=== PATIENT | female | born 1945 | race Caucasian/White ===

== ENCOUNTER 2025-04-18 15:13 | Emergency (ER) | payer MEDICARE, SELFPAY ==
[2025-04-18] VITALS (27 sets, daily range): BP systolic 120–174; BP diastolic 45–77; PULSE 42–87; RESP 11–23; TEMP 36.6; O2SAT 95–99
--- NOTE | ~2025-04-18 | XR_ITS ---
EXAMINATION: XR chest 2V Exam Date/Time: 04/18/2025 18:10 CDT HISTORY: chest heaviness, dizziness Comparison: None. RESULT: Lines, tubes, and devices: Coronary stenting. Lungs and pleura: Clear. Cardiomediastinal silhouette: Unremarkable. Other: No acute osseous or upper abdominal finding. Exaggerated thoracic kyphosis with mild multilev el anterior wedge deformities at the thoracolumbar junction. Old proximal right humeral fracture, hea led in mild deformity. IMPRESSION: No acute cardiopulmonary process. Mild multilevel anterior wedge deformities at the thoracolumbar junction, likely chronic, unless acco mpanied by history of trauma and/or pain/tenderness. Old right proximal humeral fracture. Reviewed, dictated and finalized at location K. IMPRESSION: No acute cardiopulmonary process. Mild multilevel anterior wedge deformities at the thoracolumbar junction, likel y chronic, unless accompanied by history of trauma and/or pain/tenderness. Old right proximal humeral fracture.
--- NOTE | ~2025-04-18 | CT_ITS ---
EXAMINATION: CT brain wo con DATE: 04/18/2025 17:58 INDICATION: dizziness . TECHNIQUE: Computed tomography (CT) of the head was performed without intravenous contrast. The mA wa s adjusted according to patient size. Iterative reconstruction technique was employed. The dose-lengt h product was 605.33 mGy-cm. COMPARISON: None. FINDINGS: No acute intracranial hemorrhage or extra-axial fluid collection. No hydrocephalus, mass, or herniation. No acute ischemic infarct. Unremarkable dural venous sinus attenuation. No acute osseous abnormality. Trace right mastoid fluid, the remaining aerated spaces are clear. Mild atrophy and chronic white matter change. Atherosclerotic intracranial calcification. Bilateral l ens replacements. IMPRESSION: No acute intracranial process. Reviewed, dictated and finalized at location K.
--- NOTE | 2025-04-18 15:17 | ECG_ITS ---
Test Date: 2025-04-18 15:24:03 Measurements Intervals [place] Rate: 44 P: 1 AL: 225 QRS: -25 QRSD: 85 T: 34 QT: 454 QTc: 392 Interpretive Statements SINUS BRADYCARDIA WITH FIRST DEGREE AV BLOCK POSSIBLE LEFT ATRIAL ENLARGEMENT INFERIOR INFARCT, AGE INDETERMINATE BORDERLINE T WAVE ABNORMALITY- ANTEROLATERAL LEADS BASELINE ARTIFACT- I, II, III, AVR, AVL, AVF ABNORMAL ECG No previous ECG available for comparison Electronically Signed On 04-18-2025 15:32:04 CDT by Margarito Shepherd D.O.
--- OUTSIDE RECORDS SUMMARY | 2025-04-18 15:17 | XMS_ITS | Encounter Summary ---
Author Organization [facility] Address 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
--- OUTSIDE RECORDS SUMMARY | 2025-04-18 15:17 | XMS_ITS | Encounter Summary ---
Author Organization [facility] Address 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
--- OUTSIDE RECORDS SUMMARY | 2025-04-18 15:18 | XMS_ITS | Clinical Summary ---
Author Organization [facility] Address [facility] [place] [address] Care Team Providers Care Barrel Waterer Name Role Phone Unavailable Primary Care Provider Unavailabl e Allergies Active Allergy Reactions Criticality Noted Date Comments Cephalexin Rash Low 09/19/2017 Lisinopril Cough 09/19/2017 Sulfa Antibiotics Hives 09/19/2017 Hydrocodone-Acetaminophen Headache 09/19/2017 Medications levothyroxine 112 MCG tablet Take 112 mcg by mouth daily. Active folic acid 1 MG tablet Take 1 mg by mouth daily. Active triamterene-hyd rochlorothiazid e 37.5-25 MG capsule Take 1 capsule by mouth daily. Active losartan 25 MG tablet Take 25 mg by mouth daily. Active metoprolol tartrate 25 MG tablet Take by mouth 2 (two) times daily. Active rosuvastatin 5 MG tablet Take 5 mg by mouth daily. Active Active Problems No known active problems Family History Medical History Relation Comments Cancer Father Cancer Mother Diabetes Sister Relation Status Comments Father Mother Sister Social History Tobacco Use Types Packs/Day Years Used Date Smoking Tobacco: Never Smokeless Tobacco: Never Comments No Sex and Gender Information Value Date Recorded Sex Assigned at Not on file Legal Sex Female 5:08 PM CDT Gender Identity Not on file Sexual Orientation Not on file Last Filed Vital Signs Vital Sign Reading Time Taken Comments Blood Pressure 124/70 09/19/2017 1:23 PM PETROLOGY TEACHER Pulse 66 09/19/2017 1:23 PM PETROLOGY TEACHER Temperature 36.7 C (98 F) 09/19/2017 1:23 PM PETROLOGY TEACHER Respiratory Rate 20 09/19/2017 1:23 PM PETROLOGY TEACHER Oxygen Saturation 99% 09/19/2017 1:23 PM PETROLOGY TEACHER Inhaled Oxygen Concentration - - Weight 79.4 kg (175 lb) 09/19/2017 1:23 PM PETROLOGY TEACHER Height 162.6 cm (5' 4) 09/19/2017 1:23 PM PETROLOGY TEACHER Body Mass Index 30.04 09/19/2017 1:23 PM PETROLOGY TEACHER Plan of Treatment Health Maintenance Due Date Last Done Comments DTaP, Tdap and Td Vaccines ( 1 - Tdap) 12/14/1963 Pneumococcal Vaccine: 50+ Ye ars (1 of 1 - PCV) 1994 Zoster Vaccines (1 of 2) 1994 Dexa Scan (General) 2009 RSV Immunization or 60+ Years (1 - 1-dose 75+ series) 12/14/2019 COVID-19 Vaccine (1 - 2023-2 5 season) 2024 Meningococcal B Vaccine Aged Out No l onger eligible based on patient's age to complete this topic Meningococcal Vaccine Aged Out No mary frank eligible based on patient's age to complete this topic RSV Immunizations Under 20 Months Aged Out No longer eligible based on patient's age to complete this topic Insurance
--- OUTSIDE RECORDS SUMMARY | 2025-04-18 15:18 | XMS_ITS | Encounter Summary ---
Author Organization [facility] Address [address] [place] [address] Care Team Providers Care Customer Service Advisor Name Role Phone Radha Joshi MD Primary Care Provider Encounter Details Date Type Department Care Team (Late st Contact Info) Description 08/03/2007 Outpatient Historical [facility] Internal Medicine [facility] and [address] [place] [address] [place] [address] [facility] [address] [place] [address] Social History Tobacco Use Types Packs/Day Years Used Date Smoking Tobacco: Never Assessed Comments No Sex and Gender Information Value Date Recorded Sex Assigned at Not on file 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
--- OUTSIDE RECORDS SUMMARY | 2025-04-18 15:18 | XMS_ITS | Encounter Summary ---
Author Organization [facility] Address [address] [place] [address] Care Team Providers Care Ore Dressing Engineer Name Role Phone Radha Joshi MD Primary Care Provider [phone] Encounter Details Date Type Department Care Team (Late st Contact Info) Description 03/31/2006 Outpatient Historical [facility] Internal Medicine [address] [address] Radha Joshi MD [address] [facility] [address] [place] [address] Social History Tobacco Use Types Packs/Day Years Used Date Smoking Tobacco: Never Assessed Comments Unknown Sex and Gender Information Value Date Recorded Sex Assigned at Not on file Legal Sex Female 3:41 AM JUVENILE CORRECTIONS OFFICER Gender Identity Not on file Sexual Orientation Not on file documented as of this encounter Plan of Treatment Not on file documented as of this encounter Visit Diagnoses Not on filedocumented in this encounter Care Teams Ore Dressing Engineer Relationship Specialty Start Date End Date Radha Joshi MD [address] [facility] [address] [place] [address] PCP - General 08/07/02 06/04/14 documented as of this encounter
--- OUTSIDE RECORDS SUMMARY | 2025-04-18 15:18 | XMS_ITS | Encounter Summary ---
Author Organization [facility] Address [address] [place] [address] Care Team Providers Care House Piping Inspector Name Role Phone Radha Joshi MD Primary Care Provider Encounter Details Date Type Department Care Team (Late st Contact Info) Description 08/15/2007 Outpatient Historical [facility] Internal Medicine [facility] and [address] [place] [address] [place] [address] [facility] [address] [place] [address] Social History Tobacco Use Types Packs/Day Years Used Date Smoking Tobacco: Never Assessed Comments No Sex and Gender Information Value Date Recorded Sex Assigned at Not on file Legal Sex Female 3:41 AM ACCOUNTING RECONCILIATION CLERK Gender Identity Not on file Sexual Orientation Not on file documented as of this encounter Plan of Treatment Not on file documented as of this encounter Visit Diagnoses Not on filedocumented in this encounter Care Teams House Piping Inspector Relationship Specialty Start Date End Date Radha Joshi MD [address] [facility] [address] [place] [address] PCP - General 08/07/02 06/04/14 documented as of this encounter
--- OUTSIDE RECORDS SUMMARY | 2025-04-18 15:18 | XMS_ITS | Encounter Summary ---
Author Organization [facility] Address [address] [place] [address] Care Team Providers Care Supervisor Composing Room Name Role Phone Radha Joshi MD Primary Care Provider Encounter Details Date Type Department Care Team (Late st Contact Info) Description 07/31/2006 Outpatient Historical [facility] Internal Medicine [address] [address] Radha Joshi MD [address] [facility] [address] [place] [address] Social History Tobacco Use Types Packs/Day Years Used Date Smoking Tobacco: Never Assessed Comments Unknown Sex and Gender Information Value Date Recorded Sex Assigned at Not on file Legal Sex Female 3:41 AM ARMED CUSTOM PROTECTION OFFICER Gender Identity Not on file Sexual Orientation Not on file documented as of this encounter Plan of Treatment Not on file documented as of this encounter Visit Diagnoses Not on filedocumented in this encounter Care Teams Supervisor Composing Room Relationship Specialty Start Date End Date Radha Joshi MD [address] [facility] [address] [place] [address] PCP - General 08/07/02 06/04/14 documented as of this encounter
--- OUTSIDE RECORDS SUMMARY | 2025-04-18 15:18 | XMS_ITS | Encounter Summary ---
Author Organization [employer] Address 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
--- OUTSIDE RECORDS SUMMARY | 2025-04-18 15:18 | XMS_ITS | Encounter Summary ---
Author Organization [facility] Address [address] [place] [address] Care Team Providers Care Unhairer Name Role Phone Radha Joshi MD Primary Care Provider Encounter Details Date Type Department Care Team (Late st Contact Info) Description 05/30/2006 Outpatient Historical [facility] Internal Medicine [address] [address] Radha Joshi MD [address] [facility] [address] [place] [address] Social History Tobacco Use Types Packs/Day Years Used Date Smoking Tobacco: Never Assessed Comments Unknown Sex and Gender Information Value Date Recorded Sex Assigned at Not on file Legal Sex Female 3:41 AM PROPERTY CLAIMS ADJUSTER Gender Identity Not on file Sexual Orientation Not on file documented as of this encounter Plan of Treatment Not on file documented as of this encounter Visit Diagnoses Not on filedocumented in this encounter Care Teams Unhairer Relationship Specialty Start Date End Date Radha Joshi MD [address] [facility] [address] [place] [address] PCP - General 08/07/02 06/04/14 documented as of this encounter
--- OUTSIDE RECORDS SUMMARY | 2025-04-18 15:18 | XMS_ITS | Encounter Summary ---
Author Organization [employer] Address [address] [place] [address] Care Team Providers Care Antenna Machine Operator Name Role Phone Radha Joshi MD Primary Care Provider Encounter Details Date Type Department Care Team (Latest Contact Info) Description 08/15/2007 Outpatient [place] [address] [facility] [address] [place] [id number] Cough (Primary Dx) Social History Tobacco Use Types Packs/Day Years Used Date Smoking Tobacco: Never Assessed Comments No Sex and Gender Information Value Date Recorded Sex Assigned at Not on file Legal Sex Female 3:41 AM SEISMIC INTERPRETER Gender Identity Not on file Sexual Orientation Not on file documented as of this encounter Plan of Treatment Not on file documented as of this encounter Visit Diagnoses Diagnosis Cough- Primary documented in this encounter Care Teams Antenna Machine Operator Relationship Specialty Start Date End Date Radha Joshi MD [address] [facility] [address] [address] PCP - General 08/07/02 06/04/14 documented as of this encounter
--- OUTSIDE RECORDS SUMMARY | 2025-04-18 15:18 | XMS_ITS | Encounter Summary ---
Author Organization [facility] Address [address] [place] [address] Care Team Providers Care Stitcher Standard Machine Name Role Phone Radha Joshi MD Primary Care Provider Encounter Details Date Type Department Care Team (Late st Contact Info) Description 08/01/2007 Outpatient Historical [facility] Radha Joshi MD [address] [place] [address] Social History Tobacco Use Types Packs/Day Years Used Date Smoking Tobacco: Never Assessed Comments No Sex and Gender Information Value Date Recorded Sex Assigned at Not on file Legal Sex Female 3:41 AM CORRECTIONAL CASE RECORDS SUPERVISOR Gender Identity Not on file Sexual Orientation Not on file documented as of this encounter Plan of Treatment Not on file documented as of this encounter Visit Diagnoses Not on filedocumented in this encounter Care Teams Stitcher Standard Machine Relationship Specialty Start Date End Date Radha Joshi MD [address] [place] [address] PCP - General 08/07/02 06/04/14 documented as of this encounter
--- OUTSIDE RECORDS SUMMARY | 2025-04-18 15:18 | XMS_ITS | Encounter Summary ---
Author Organization [facility] Address 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
--- OUTSIDE RECORDS SUMMARY | 2025-04-18 15:18 | XMS_ITS | Encounter Summary ---
Author Organization [facility] Address [address] [place] [address] Care Team Providers Care Manager Knowledge Name Role Phone Radha Joshi MD Primary Care Provider Encounter Details Date Type Department Care Team (Late st Contact Info) Description 11/23/2006 Outpatient Historical [facility] Internal Medicine [address] [address] Radha Joshi MD [address] 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 [address] [place] [address] PCP - General 08/07/02 06/04/14 documented as of this encounter
--- OUTSIDE RECORDS SUMMARY | 2025-04-18 15:18 | XMS_ITS | Encounter Summary ---
Author Organization [facility] Address 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
--- OUTSIDE RECORDS SUMMARY | 2025-04-18 15:18 | XMS_ITS | Encounter Summary ---
Author Organization [facility] Address [address] [place] [address] Care Team Providers Care Sales Solutions Representative Name Role Phone Radha Joshi MD Primary Care Provider Encounter Details Date Type Department Care Team (Late st Contact Info) Description 03/02/2006 Outpatient Historical [facility] Internal Medicine [address] [address] Radha Joshi MD [address] [facility] [address] [place] [address] Social History Tobacco Use Types Packs/Day Years Used Date Smoking Tobacco: Never Assessed Comments Unknown Sex and Gender Information Value Date Recorded Sex Assigned at Not on file Legal Sex Female 3:41 AM CASINO OPERATIONS SUPERVISOR Gender Identity Not on file Sexual Orientation Not on file documented as of this encounter Plan of Treatment Not on file documented as of this encounter Visit Diagnoses Not on filedocumented in this encounter Care Teams Sales Solutions Representative Relationship Specialty Start Date End Date Radha Joshi MD [address] [facility] [address] [place] [address] PCP - General 08/07/02 06/04/14 documented as of this encounter
--- OUTSIDE RECORDS SUMMARY | 2025-04-18 15:19 | XMS_ITS | Encounter Summary ---
Author Organization [facility] Address [address] [place] [address] Care Team Providers Care Head Host/Hostess Name Role Phone Radha Joshi MD Primary Care Provider [phone] Encounter Details Date Type Department Care Team (Late st Contact Info) Description 07/01/1998 Outpatient Historical [address] [place] [address] Marci Cao MD NO ADDRESS ON FILE Social History Tobacco Use Types Packs/Day Years Used Date Smoking Tobacco: Never Assessed Comments Unknown Sex and Gender Information Value Date Recorded Sex Assigned at Not on file Legal Sex Female 3:41 AM RESERVATION AGENT Gender Identity Not on file Sexual Orientation Not on file documented as of this encounter Plan of Treatment Not on file documented as of this encounter Visit Diagnoses Not on filedocumented in this encounter Care Teams Head Host/Hostess Relationship Specialty Start Date End Date Radha Joshi MD [address] [facility] [address] [place] [address] PCP - General 08/07/02 06/04/14 documented as of this encounter
--- OUTSIDE RECORDS SUMMARY | 2025-04-18 15:19 | XMS_ITS | Encounter Summary ---
Author Organization [facility] Address [address] [place] [address] Care Team Providers Care Care Coordinator Name Role Phone Radha Joshi MD Primary Care Provider [phone] Encounter Details Date Type Department Care Team (Late st Contact Info) Description 08/24/2005 Outpatient Historical [address] [place] [address] Marci Cao MD NO ADDRESS ON FILE Social History Tobacco Use Types Packs/Day Years Used Date Smoking Tobacco: Never Assessed Comments Unknown Sex and Gender Information Value Date Recorded Sex Assigned at Not on file Legal Sex Female 3:41 AM POSTAL TRANSPORTATION CLERK Gender Identity Not on file Sexual Orientation Not on file documented as of this encounter Plan of Treatment Not on file documented as of this encounter Visit Diagnoses Not on filedocumented in this encounter Care Teams Care Coordinator Relationship Specialty Start Date End Date Radha Joshi MD [address] [facility] [address] [place] [address] PCP - General 08/07/02 06/04/14 documented as of this encounter
--- OUTSIDE RECORDS SUMMARY | 2025-04-18 15:19 | XMS_ITS | Encounter Summary ---
Author Organization [facility] Address 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
--- OUTSIDE RECORDS SUMMARY | 2025-04-18 15:19 | XMS_ITS | Encounter Summary ---
Author Organization [facility] Address [address] [place] [address] Care Team Providers Care Cancer Program Coordinator Name Role Phone Radha Joshi MD Primary Care Provider Encounter Details Date Type Department Care Team (Late st Contact Info) Description 01/01/2007 Outpatient Historical [facility] Internal Medicine [address] [address] Radha Joshi MD [address] [facility] [address] [place] [address] Social History Tobacco Use Types Packs/Day Years Used Date Smoking Tobacco: Never Assessed Comments No Sex and Gender Information Value Date Recorded Sex Assigned at Not on file Legal Sex Female 3:41 AM GRAPHIC ARTIST Gender Identity Not on file Sexual Orientation Not on file documented as of this encounter Plan of Treatment Not on file documented as of this encounter Visit Diagnoses Not on filedocumented in this encounter Care Teams Cancer Program Coordinator Relationship Specialty Start Date End Date Radha Joshi MD [address] [facility] [address] [place] [address] PCP - General 08/07/02 06/04/14 documented as of this encounter
--- OUTSIDE RECORDS SUMMARY | 2025-04-18 15:19 | XMS_ITS | Encounter Summary ---
Author Organization [facility] Address 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
--- OUTSIDE RECORDS SUMMARY | 2025-04-18 15:19 | XMS_ITS | Encounter Summary ---
Author Organization [employer] Address 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
--- OUTSIDE RECORDS SUMMARY | 2025-04-18 15:19 | XMS_ITS | Encounter Summary ---
Author Organization [facility] Address 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
--- OUTSIDE RECORDS SUMMARY | 2025-04-18 15:19 | XMS_ITS | Encounter Summary ---
Author Organization [facility] Address [address] [place] [address] Care Team Providers Care Civil Engineer Land Development Name Role Phone Radha Joshi MD Primary Care Provider Encounter Details Date Type Department Care Team (Late st Contact Info) Description 06/17/2005 Outpatient Historical [facility] Radha Joshi MD [address] [facility] [address] [place] [address] SKIN SENSATION DISTURB (Primary Dx) Social History Tobacco Use Types Packs/Day Years Used Date Smoking Tobacco: Never Assessed Comments Unknown Sex and Gender Information Value Date Recorded Sex Assigned at Not on file Legal Sex Female 3:41 AM GSA COORDINATOR Gender Identity Not on file Sexual Orientation Not on file documented as of this encounter Plan of Treatment Not on file documented as of this encounter Visit Diagnoses Diagnosis Disturbance of skin sensation- Primary documented in this encounter Care Teams Civil Engineer Land Development Relationship Specialty Start Date End Date Radha Joshi MD [address] [facility] [address] [place] [address] PCP - General 08/07/02 06/04/14 documented as of this encounter
--- OUTSIDE RECORDS SUMMARY | 2025-04-18 15:19 | XMS_ITS | Encounter Summary ---
Author Organization [employer] Address 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
--- OUTSIDE RECORDS SUMMARY | 2025-04-18 15:19 | XMS_ITS | Encounter Summary ---
Author Organization [facility] Address [address] [place] [address] Care Team Providers Care Solar Panel Installer Name Role Phone Radha Joshi MD Primary Care Provider Encounter Details Date Type Department Care Team (Late st Contact Info) Description 06/07/2005 Outpatient Historical [facility] Internal Medicine [address] [address] Radha Joshi MD [address] [facility] [address] [place] [address] Social History Tobacco Use Types Packs/Day Years Used Date Smoking Tobacco: Never Assessed Comments Unknown Sex and Gender Information Value Date Recorded Sex Assigned at Not on file Legal Sex Female 3:41 AM STAFF PHYSICAL THERAPY ASSISTANT Gender Identity Not on file Sexual Orientation Not on file documented as of this encounter Plan of Treatment Not on file documented as of this encounter Visit Diagnoses Not on filedocumented in this encounter Care Teams Solar Panel Installer Relationship Specialty Start Date End Date Radha Joshi MD [address] [facility] [address] [place] [address] PCP - General 08/07/02 06/04/14 documented as of this encounter
--- OUTSIDE RECORDS SUMMARY | 2025-04-18 15:19 | XMS_ITS | Encounter Summary ---
Author Organization [facility] Address 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
--- OUTSIDE RECORDS SUMMARY | 2025-04-18 15:19 | XMS_ITS | Encounter Summary ---
Author Organization [facility] Address [address] [place] [address] Care Team Providers Care Currency Examiner Name Role Phone Radha Joshi MD Primary Care Provider Encounter Details Date Type Department Care Team (Late st Contact Info) Description 07/19/2005 Outpatient Historical [facility] 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
--- OUTSIDE RECORDS SUMMARY | 2025-04-18 15:20 | XMS_ITS | Encounter Summary ---
Author Organization [facility] Address [address] [place] [address] Care Team Providers Care Central Melt Specialist Name Role Phone Radha Joshi MD Primary Care Provider Encounter Details Date Type Department Care Team (Late st Contact Info) Description 06/28/2004 Outpatient Historical 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
--- OUTSIDE RECORDS SUMMARY | 2025-04-18 15:20 | XMS_ITS | Encounter Summary ---
Author Organization [facility] Address [address] [place] [address] Care Team Providers Care Diesel Technology Instructor Name Role Phone Radha Joshi MD Primary Care Provider Encounter Details Date Type Department Care Team (Late st Contact Info) Description 06/01/2004 Outpatient Historical [facility] [address] [place] [address] Juan David Wilson MD [facility] [address] [address] Social History Tobacco Use Types Packs/Day Years Used Date Smoking Tobacco: Never Assessed Comments Unknown Sex and Gender Information Value Date Recorded Sex Assigned at Not on file Legal Sex Female 3:41 AM MANAGER PSYCHOLOGY Gender Identity Not on file Sexual Orientation Not on file documented as of this encounter Plan of Treatment Not on file documented as of this encounter Visit Diagnoses Not on filedocumented in this encounter Care Teams Diesel Technology Instructor Relationship Specialty Start Date End Date Radha Joshi MD [address] [facility] [address] [place] [address] PCP - General 08/07/02 06/04/14 documented as of this encounter
--- OUTSIDE RECORDS SUMMARY | 2025-04-18 15:20 | XMS_ITS | Encounter Summary ---
Author Organization [facility] Address [address] [place] [address] Care Team Providers Care Gear Cutting Machine Operator Name Role Phone Radha Joshi MD Primary Care Provider [phone] Encounter Details Date Type Department Care Team (Late st Contact Info) Description 05/31/2004 Outpatient Historical [facility] [facility] [address] [place] [address] Woody Bryant MD NO ADDRESS ON FILE Social History Tobacco Use Types Packs/Day Years Used Date Smoking Tobacco: Never Assessed Comments Unknown Sex and Gender Information Value Date Recorded Sex Assigned at Not on file 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
--- OUTSIDE RECORDS SUMMARY | 2025-04-18 15:20 | XMS_ITS | Encounter Summary ---
Author Organization [facility] Address [address] [place] [address] Care Team Providers Care Inspector And Sorter Name Role Phone Radha Joshi MD Primary Care Provider Encounter Details Date Type Department Care Team (Late st Contact Info) Description 08/20/2002 Outpatient Historical [facility] Radha Joshi MD [address] [facility] [address] [place] [address] NONTOX MULTINODUL GOITER (Primary Dx) Social History Tobacco Use Types Packs/Day Years Used Date Smoking Tobacco: Never Assessed Comments Unknown Sex and Gender Information Value Date Recorded Sex Assigned at Not on file Legal Sex Female 3:41 AM TOOL AND DIE REPAIR Gender Identity Not on file Sexual Orientation Not on file documented as of this encounter Plan of Treatment Not on file documented as of this encounter Visit Diagnoses Diagnosis Nontoxic multinodular goiter- Primary documented in this encounter Care Teams Inspector And Sorter Relationship Specialty Start Date End Date Radha Joshi MD [address] [facility] [address] [place] [address] PCP - General 08/07/02 06/04/14 documented as of this encounter
--- OUTSIDE RECORDS SUMMARY | 2025-04-18 15:20 | XMS_ITS | Encounter Summary ---
Author Organization [facility] Address [address] [place] [address] Care Team Providers Care Alberene Stone Setter Name Role Phone Radha Joshi MD Primary Care Provider [phone] Encounter Details Date Type Department Care Team (Latest Contact Info) Description 09/23/[address] [facility] Cao, Marci Raymundo MD NO ADDRESS ON FILE SCREENING MAMM-MAILG NEOPL-OTHER (Primary Dx) Social History Tobacco Use Types Packs/Day Years Used Date Smoking Tobacco: Never Assessed Comments Unknown Sex and Gender Information Value Date Recorded Sex Assigned at Not on file Legal Sex Female 3:41 AM DOCUMENTATION MANAGER Gender Identity Not on file Sexual Orientation Not on file documented as of this encounter Plan of Treatment Not on file documented as of this encounter Visit Diagnoses Diagnosis Other screening mammogram- Primary documented in this encounter Care Teams Alberene Stone Setter Relationship Specialty Start Date End Date Radha Joshi MD [address] [facility] [address] [place] [address] PCP - General 08/07/02 06/04/14 documented as of this encounter
--- OUTSIDE RECORDS SUMMARY | 2025-04-18 15:20 | XMS_ITS | Encounter Summary ---
Author Organization [employer] Address [address] [place] [address] Care Team Providers Care Pharmacy Salesperson Name Role Phone Radha Joshi MD Primary Care Provider [phone] Encounter Details Date Type Department Care Team (Late st Contact Info) Description 12/31/2002 Outpatient Historical [facility] Support Serv. ([facility]) [address] 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
--- OUTSIDE RECORDS SUMMARY | 2025-04-18 15:20 | XMS_ITS | Encounter Summary ---
Author Organization [facility] Address [address] [facility] Attn: [place] [address] Care Team Providers Care Strategic Planning Director Name Role Phone Radha Joshi MD Primary Care Provider [phone] Encounter Details Date Type Department Care Team (Late st Contact Info) Description 03/17/1992 Outpatient Historical Marci Cao MD NO ADDRESS ON FILE Social History Tobacco Use Types Packs/Day Years Used Date Smoking Tobacco: Never Assessed Comments Unknown Sex and Gender Information Value Date Recorded Sex Assigned at Not on file 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
--- OUTSIDE RECORDS SUMMARY | 2025-04-18 15:20 | XMS_ITS | Encounter Summary ---
Author Organization [facility] Address [address] [facility] Attn: [place] [address] Care Team Providers Care Ms Access Database Developer Name Role Phone Radha Joshi MD Primary Care Provider [phone] Encounter Details Date Type Department Care Team (Late st Contact Info) Description 12/09/1992 Outpatient Historical Marci Cao MD NO ADDRESS ON FILE Social History Tobacco Use Types Packs/Day Years Used Date Smoking Tobacco: Never Assessed Comments Unknown Sex and Gender Information Value Date Recorded Sex Assigned at Not on file Legal Sex Female 3:41 AM MFTS Gender Identity Not on file Sexual Orientation Not on file documented as of this encounter Plan of Treatment Not on file documented as of this encounter Visit Diagnoses Not on filedocumented in this encounter Care Teams Ms Access Database Developer Relationship Specialty Start Date End Date Radha Joshi MD [address] [facility] [address] [place] [address] PCP - General 08/07/02 06/04/14 documented as of this encounter
--- OUTSIDE RECORDS SUMMARY | 2025-04-18 15:20 | XMS_ITS | Encounter Summary ---
Author Organization [facility] Address [address] [place] [address] Care Team Providers Care Occupational Health And Safety Adviser Name Role Phone Radha Joshi MD Primary Care Provider Reason for Visit * Reason Comments Medication Refill Encounter Details Date Type Department Care Team (Late st Contact Info) Description 01/14/2014 Refill [facility] Internal Medicine [address] [place] [address] Radha Joshi MD [address] [facility] [address] [place] [address] Social History Tobacco Use Types Packs/Day Years Used Date Smoking Tobacco: Never Smokeless Tobacco: Never Alcohol Use Standard Drinks/Week Comments Yes 0 (1 standard drink = 0.6 oz pur e alcohol) ocassionally Comments No Sex and Gender Information Value Date Recorded Sex Assigned at Not on file Legal Sex Female 3:41 AM PHYSIOLOGICAL CHEMIST Gender Identity Not on file Sexual Orientation Not on file Occupation Industry Job Start Date Job End Date Not on file Not on file Not on file Not on file documented as of this encounter Plan of Treatment Not on file documented as of this encounter Visit Diagnoses Not on filedocumented in this encounter Care Teams Occupational Health And Safety Adviser Relationship Specialty Start Date End Date Radha Joshi MD [address] [facility] [address] [place] [address] PCP - General 08/07/02 06/04/14 documented as of this encounter
--- OUTSIDE RECORDS SUMMARY | 2025-04-18 15:20 | XMS_ITS | Encounter Summary ---
Author Organization [employer] Address [address] [place] [address] Care Team Providers Care Juice Bar Team Member Name Role Phone Radha Joshi MD Primary Care Provider [phone] Encounter Details Date Type Department Care Team (Latest Contact Info) Description 10/04/2005 Inpatient Historical [facility] Marci Cao MD NO ADDRESS ON FILE Yossi Rivera MD NO ADDRESS ON FILE UTERINE PROLAPSE (Primary Dx) Social History Tobacco Use Types Packs/Day Years Used Date Smoking Tobacco: Never Assessed Comments Unknown Sex and Gender Information Value Date Recorded Sex Assigned at Not on file Legal Sex Female 3:41 AM TABLE GAMES MANAGER Gender Identity Not on file Sexual Orientation Not on file documented as of this encounter Plan of Treatment Not on file documented as of this encounter Procedures Procedure Name Priority Date/Time Associated Diagnosis Comments HEMOGLOBIN AND HEMATOCRIT Routine 10/04/2005 5:32 AM TABLE GAMES MANAGER BASIC METABOLIC PANEL Routine 10/04/2005 5:32 AM TABLE GAMES MANAGER documented in this encounter Results * (ABNORMAL) BASIC METABOLIC PANEL (10/04/2005 5:32 AM TABLE GAMES MANAGER) GLUCOSE 113(H) 65 - 109 mg/dL INTERFACE SYSTEM CREATININE 0.8 0.4 - 1.2 mg/dL INTERFACE SYSTEM CALCIUM 9.5 8.6 - 10.2 mg/dL INTERFACE SYSTEM BUN 9 6 - 20 mg/dL INTERFACE SYSTEM SODIUM 143 135 - 145 mmol/L INTERFACE SYSTEM POTASSIUM 4.0 3.5 - 4.9 mmol/L INTERFACE SYSTEM CHLORIDE 106 96 - 108 mmol/L INTERFACE SYSTEM CO2 27 22 - 30 mmol/L INTERFACE SYSTEM 10/04/2005 5:32 AM TABLE GAMES MANAGER Marci Cao MD CHEMISTRY ORDERABLES Final Re sult Performing Organization Address [place]/[facility] de Phone Number INTERFACE SYSTEM Refer to clinic/hospital department * HEMOGLOBIN AND HEMATOCRIT (10/04/2005 5:32 AM TABLE GAMES MANAGER) HEMOGLOBIN 13.7 11.8 - 14.8 g/dL INTERFACE SYSTEM HEMATOCRIT 40.3 35.5 - 44.0 % INTERFACE SYSTEM 10/04/2005 5:32 AM TABLE GAMES MANAGER Marci Cao MD HEMATOLOGY ORDERABLES Final R esult Performing Organization Address [facility] Phone Number INTERFACE SYSTEM Refer to clinic/hospital department documented in this encounter Visit Diagnoses Diagnosis Uterine prolapse without mention of vaginal wall prolapse- Primary documented in this encounter Care Teams Juice Bar Team Member Relationship Specialty Start Date End Date Radha Joshi MD [address] [address] PCP - General 08/07/02 06/04/14 documented as of this encounter
--- OUTSIDE RECORDS SUMMARY | 2025-04-18 15:20 | XMS_ITS | Encounter Summary ---
Author Organization [facility] Address [address] [place] [address] Care Team Providers Care Shoe Polisher Name Role Phone Radha Joshi MD Primary Care Provider Encounter Details Date Type Department Care Team (Late st Contact Info) Description 01/19/2006 Outpatient Historical [facility] Internal Medicine [address] [address] Radha Joshi MD [address] [facility] [address] [place] [address] Social History Tobacco Use Types Packs/Day Years Used Date Smoking Tobacco: Never Assessed Comments Unknown Sex and Gender Information Value Date Recorded Sex Assigned at Not on file Legal Sex Female 3:41 AM FRONT DESK RECEPTIONIST Gender Identity Not on file Sexual Orientation Not on file documented as of this encounter Plan of Treatment Not on file documented as of this encounter Visit Diagnoses Not on filedocumented in this encounter Care Teams Shoe Polisher Relationship Specialty Start Date End Date Radha Joshi MD [address] [facility] [address] [place] [address] PCP - General 08/07/02 06/04/14 documented as of this encounter
--- OUTSIDE RECORDS SUMMARY | 2025-04-18 15:20 | XMS_ITS | Encounter Summary ---
Author Organization [employer] Address [address] [place] [address] Care Team Providers Care Supervisor Home Energy Consultant Name Role Phone Radha Joshi MD Primary Care Provider Encounter Details Date Type Department Care Team (Latest Contact Info) Description 05/31/2004 Inpatient Historical [facility] Juan David Wilson MD [address] [address] Rosalio Khan MD [address] [facility] [address] [place] [address] CHEST PAIN NOS (Primary Dx) Social History Tobacco Use Types Packs/Day Years Used Date Smoking Tobacco: Never Assessed Comments Unknown Sex and Gender Information Value Date Recorded Sex Assigned at Not on file Legal Sex Female 3:41 AM CRATING AND MOVING ESTIMATOR Gender Identity Not on file Sexual Orientation Not on file documented as of this encounter Plan of Treatment Not on file documented as of this encounter Visit Diagnoses Diagnosis Chest pain, unspecified- Primary documented in this encounter Care Teams Supervisor Home Energy Consultant Relationship Specialty Start Date End Date Radha Joshi MD [address] [facility] [address] [place] [address] PCP - General 08/07/02 06/04/14 documented as of this encounter
--- OUTSIDE RECORDS SUMMARY | 2025-04-18 15:20 | XMS_ITS | Encounter Summary ---
Author Organization [facility] Address [address] [place] [address] Care Team Providers Care Check Embosser Name Role Phone Radha Joshi MD Primary Care Provider [phone] Encounter Details Date Type Department Care Team (Late st Contact Info) Description 11/22/2004 Outpatient Historical [facility] Internal Medicine [address] [address] Radha Joshi MD [address] [facility] [address] [place] [address] Social History Tobacco Use Types Packs/Day Years Used Date Smoking Tobacco: Never Assessed Comments Unknown Sex and Gender Information Value Date Recorded Sex Assigned at Not on file Legal Sex Female 3:41 AM HR COORDINATOR Gender Identity Not on file Sexual Orientation Not on file documented as of this encounter Plan of Treatment Not on file documented as of this encounter Visit Diagnoses Not on filedocumented in this encounter Care Teams Check Embosser Relationship Specialty Start Date End Date Radha Joshi MD [address] [facility] [address] [place] [address] PCP - General 08/07/02 06/04/14 documented as of this encounter
--- OUTSIDE RECORDS SUMMARY | 2025-04-18 15:20 | XMS_ITS | Encounter Summary ---
Author Organization [facility] Address [address] [facility] Attn: [place] [address] Care Team Providers Care Retirement Manager Name Role Phone Radha Joshi MD Primary Care Provider [phone] Encounter Details Date Type Department Care Team (Late st Contact Info) Description 10/12/1990 Outpatient Historical Marci Cao MD NO ADDRESS ON FILE Social History Tobacco Use Types Packs/Day Years Used Date Smoking Tobacco: Never Assessed Comments Unknown Sex and Gender Information Value Date Recorded Sex Assigned at Not on file Legal Sex Female 3:41 AM CONTRACTS ANALYST Gender Identity Not on file Sexual Orientation Not on file documented as of this encounter Plan of Treatment Not on file documented as of this encounter Visit Diagnoses Not on filedocumented in this encounter Care Teams Retirement Manager Relationship Specialty Start Date End Date Radha Joshi MD [address] [facility] [address] [place] [address] PCP - General 08/07/02 06/04/14 documented as of this encounter
--- OUTSIDE RECORDS SUMMARY | 2025-04-18 15:20 | XMS_ITS | Encounter Summary ---
Author Organization [facility] Address [address] [place] [address] Care Team Providers Care Installer Soft Top Name Role Phone Radha Joshi MD Primary Care Provider [phone] Encounter Details Date Type Department Care Team (Late st Contact Info) Description 08/29/2002 Outpatient Historical [facility] Internal Medicine [address] [address] Radha Joshi MD [address] [facility] [address] [place] [address] Social History Tobacco Use Types Packs/Day Years Used Date Smoking Tobacco: Never Assessed Comments Unknown Sex and Gender Information Value Date Recorded Sex Assigned at Not on file Legal Sex Female 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
--- OUTSIDE RECORDS SUMMARY | 2025-04-18 15:20 | XMS_ITS | Encounter Summary ---
Author Organization [employer] Address [address] [place] [address] Care Team Providers Care Relationship Manager Name Role Phone Radha Joshi MD Primary Care Provider Encounter Details Date Type Department Care Team (Late st Contact Info) Description 05/31/2004 Outpatient Historical [facility] Support Serv. ([facility]) [address] [place] [address] Alok Melendez MD [address] [place] [address] Social History Tobacco Use Types Packs/Day Years Used Date Smoking Tobacco: Never Assessed Comments Unknown Sex and Gender Information Value Date Recorded Sex Assigned at Not on file Legal Sex Female 3:41 AM TRUCK TECHNICIAN Gender Identity Not on file Sexual Orientation Not on file documented as of this encounter Plan of Treatment Not on file documented as of this encounter Visit Diagnoses Not on filedocumented in this encounter Care Teams Relationship Manager Relationship Specialty Start Date End Date Radha Joshi MD [address] [facility] [address] [place] [address] PCP - General 08/07/02 06/04/14 documented as of this encounter
--- OUTSIDE RECORDS SUMMARY | 2025-04-18 15:20 | XMS_ITS | Encounter Summary ---
Author Organization [facility] Address [address] [place] [address] Care Team Providers Care Dental Therapist Name Role Phone Radha Joshi MD Primary Care Provider [phone] Encounter Details Date Type Department Care Team (Late st Contact Info) Description 10/26/2005 Outpatient Historical [address] [place] [address] Marci Cao MD NO ADDRESS ON FILE Social History Tobacco Use Types Packs/Day Years Used Date Smoking Tobacco: Never Assessed Comments Unknown Sex and Gender Information Value Date Recorded Sex Assigned at Not on file Legal Sex Female 3:41 AM OPTICAL SALES ASSOCIATE Gender Identity Not on file Sexual Orientation Not on file documented as of this encounter Plan of Treatment Not on file documented as of this encounter Visit Diagnoses Not on filedocumented in this encounter Care Teams Dental Therapist Relationship Specialty Start Date End Date Radha Joshi MD [address] [facility] [address] [place] [address] PCP - General 08/07/02 06/04/14 documented as of this encounter
--- OUTSIDE RECORDS SUMMARY | 2025-04-18 15:20 | XMS_ITS | Encounter Summary ---
Author Organization [facility] Address [address] [place] [address] Care Team Providers Care Division Roadmaster Name Role Phone Radha Joshi MD Primary Care Provider Encounter Details Date Type Department Care Team (Late st Contact Info) Description 08/07/2002 Outpatient Historical [facility] Radha Joshi MD [address] [facility] [address] [place] [address] CERVICAL SPINAL STENOSIS (Primary Dx) Social History Tobacco Use Types Packs/Day Years Used Date Smoking Tobacco: Never Assessed Comments Unknown Sex and Gender Information Value Date Recorded Sex Assigned at Not on file Legal Sex Female 3:41 AM ONLINE TRADER Gender Identity Not on file Sexual Orientation Not on file documented as of this encounter Plan of Treatment Not on file documented as of this encounter Visit Diagnoses Diagnosis Spinal stenosis in cervical region- Primary documented in this encounter Care Teams Division Roadmaster Relationship Specialty Start Date End Date Radha Joshi MD [address] [facility] [address] [place] [address] PCP - General 08/07/02 06/04/14 documented as of this encounter
--- OUTSIDE RECORDS SUMMARY | 2025-04-18 15:20 | XMS_ITS | Encounter Summary ---
Author Organization [facility] Address [address] [place] [address] Care Team Providers Care Cio Name Role Phone Radha Joshi MD Primary Care Provider Encounter Details Date Type Department Care Team (Late st Contact Info) Description 09/19/2001 Outpatient Historical [address] [place] [address] Marci Cao MD NO ADDRESS ON FILE Social History Tobacco Use Types Packs/Day Years Used Date Smoking Tobacco: Never Assessed Comments Unknown Sex and Gender Information Value Date Recorded Sex Assigned at Not on file Legal Sex Female 3:41 AM LARD MAKER Gender Identity Not on file Sexual Orientation Not on file documented as of this encounter Plan of Treatment Not on file documented as of this encounter Visit Diagnoses Not on filedocumented in this encounter Care Teams Cio Relationship Specialty Start Date End Date Radha Joshi MD [address] [facility] [address] [place] [address] PCP - General 08/07/02 06/04/14 documented as of this encounter
--- OUTSIDE RECORDS SUMMARY | 2025-04-18 15:20 | XMS_ITS | Encounter Summary ---
Author Organization [facility] Address [address] [facility] Attn: [place] [address] Care Team Providers Care Electrical Construction Project Manager Name Role Phone Radha Joshi MD Primary Care Provider [phone] Encounter Details Date Type Department Care Team (Late st Contact Info) Description 07/22/1991 Outpatient Historical Marci Cao MD NO ADDRESS ON FILE Social History Tobacco Use Types Packs/Day Years Used Date Smoking Tobacco: Never Assessed Comments Unknown Sex and Gender Information Value Date Recorded Sex Assigned at Not on file Legal Sex Female 3:41 AM SENIOR JAVA ARCHITECT Gender Identity Not on file Sexual Orientation Not on file documented as of this encounter Plan of Treatment Not on file documented as of this encounter Visit Diagnoses Not on filedocumented in this encounter Care Teams Electrical Construction Project Manager Relationship Specialty Start Date End Date Radha Joshi MD [address] [facility] [address] [place] [address] PCP - General 08/07/02 06/04/14 documented as of this encounter
--- OUTSIDE RECORDS SUMMARY | 2025-04-18 15:20 | XMS_ITS | Encounter Summary ---
Author Organization [facility] Address [address] [facility] Attn: [place] [id number] Care Team Providers Care Analyst Food And Beverage Name Role Phone Radha Joshi MD Primary Care Provider [phone] Encounter Details Date Type Department Care Team (Late st Contact Info) Description 01/10/1994 Outpatient Historical Marci Cao MD NO ADDRESS ON FILE Social History Tobacco Use Types Packs/Day Years Used Date Smoking Tobacco: Never Assessed Comments Unknown Sex and Gender Information Value Date Recorded Sex Assigned at Not on file Legal Sex Female 3:41 AM DATA ACQUISITION TECHNICIAN Gender Identity Not on file Sexual Orientation Not on file documented as of this encounter Plan of Treatment Not on file documented as of this encounter Visit Diagnoses Not on filedocumented in this encounter Care Teams Analyst Food And Beverage Relationship Specialty Start Date End Date Radha Joshi MD [address] [facility] [address] [place] [address] PCP - General 08/07/02 06/04/14 documented as of this encounter
--- OUTSIDE RECORDS SUMMARY | 2025-04-18 15:20 | XMS_ITS | Encounter Summary ---
Author Organization [facility] Address [address] [place] [address] Care Team Providers Care Floriculture Professor Name Role Phone Radha Joshi MD Primary Care Provider Encounter Details Date Type Department Care Team (Late st Contact Info) Description 10/04/2005 Outpatient Historical [address] [place] [address] Marci Cao MD NO ADDRESS ON FILE Social History Tobacco Use Types Packs/Day Years Used Date Smoking Tobacco: Never Assessed Comments Unknown Sex and Gender Information Value Date Recorded Sex Assigned at Not on file Legal Sex Female 3:41 AM NEWSPERSON Gender Identity Not on file Sexual Orientation Not on file documented as of this encounter Plan of Treatment Not on file documented as of this encounter Visit Diagnoses Not on filedocumented in this encounter Care Teams Floriculture Professor Relationship Specialty Start Date End Date Radha Joshi MD [address] [facility] [address] [place] [address] PCP - General 08/07/02 06/04/14 documented as of this encounter
--- OUTSIDE RECORDS SUMMARY | 2025-04-18 15:20 | XMS_ITS | Encounter Summary ---
Author Organization [employer] Address [address] [place] [address] Care Team Providers Care Photography Coordinator Name Role Phone Radha Joshi MD Primary Care Provider [phone] Encounter Details Date Type Department Care Team (Late st Contact Info) Description 06/01/2004 Outpatient Historical [facility] Support Serv. ([facility]) [address] 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
--- OUTSIDE RECORDS SUMMARY | 2025-04-18 15:20 | XMS_ITS | Encounter Summary ---
Author Organization [facility] Address [address] [place] [address] Care Team Providers Care Table Attendant Name Role Phone Radha Joshi MD Primary Care Provider Encounter Details Date Type Department Care Team (Late st Contact Info) Description 05/17/2004 Outpatient Historical [address] [place] [address] Marci Cao MD NO ADDRESS ON FILE Social History Tobacco Use Types Packs/Day Years Used Date Smoking Tobacco: Never Assessed Comments Unknown Sex and Gender Information Value Date Recorded Sex Assigned at Not on file Legal Sex Female 3:41 AM SYSTEMS SECURITY CONSULTANT Gender Identity Not on file Sexual Orientation Not on file documented as of this encounter Plan of Treatment Not on file documented as of this encounter Visit Diagnoses Not on filedocumented in this encounter Care Teams Table Attendant Relationship Specialty Start Date End Date Radha Joshi MD [address] [facility] [address] [place] [address] PCP - General 08/07/02 06/04/14 documented as of this encounter
--- OUTSIDE RECORDS SUMMARY | 2025-04-18 15:20 | XMS_ITS | Encounter Summary ---
Author Organization [facility] Address [address] [place] [address] Care Team Providers Care Commercial Property Administrator Name Role Phone Radha Joshi MD Primary Care Provider Encounter Details Date Type Department Care Team (Late st Contact Info) Description 11/21/2005 Outpatient Historical [address] [place] [address] Marci Cao MD NO ADDRESS ON FILE Social History Tobacco Use Types Packs/Day Years Used Date Smoking Tobacco: Never Assessed Comments Unknown Sex and Gender Information Value Date Recorded Sex Assigned at Not on file Legal Sex Female 3:41 AM BRANCH EXAMINER Gender Identity Not on file Sexual Orientation Not on file documented as of this encounter Plan of Treatment Not on file documented as of this encounter Visit Diagnoses Not on filedocumented in this encounter Care Teams Commercial Property Administrator Relationship Specialty Start Date End Date Radha Joshi MD [address] [facility] [address] [place] [address] PCP - General 08/07/02 06/04/14 documented as of this encounter
--- OUTSIDE RECORDS SUMMARY | 2025-04-18 15:20 | XMS_ITS | Encounter Summary ---
Author Organization [facility] Address [address] [place] [address] Care Team Providers Care Blanket Winder Operator Name Role Phone Radha Joshi MD Primary Care Provider [phone] Encounter Details Date Type Department Care Team (Late st Contact Info) Description 08/01/2002 Outpatient Historical [facility] Internal Medicine [address] [address] Radha Joshi MD [address] [facility] [address] [place] [address] Social History Tobacco Use Types Packs/Day Years Used Date Smoking Tobacco: Never Assessed Comments Unknown Sex and Gender Information Value Date Recorded Sex Assigned at Not on file Legal Sex Female 3:41 AM RADIOSONDE SPECIALIST Gender Identity Not on file Sexual Orientation Not on file documented as of this encounter Plan of Treatment Not on file documented as of this encounter Visit Diagnoses Not on filedocumented in this encounter Care Teams Blanket Winder Operator Relationship Specialty Start Date End Date Radha Joshi MD [address] [facility] [address] [place] [address] PCP - General 08/07/02 06/04/14 documented as of this encounter
--- OUTSIDE RECORDS SUMMARY | 2025-04-18 15:20 | XMS_ITS | Clinical Summary ---
Author Organization [facility] Address [facility] [place] [address] Care Team Providers Care Enrollment Management Coordinator Name Role Phone Unavailable Primary Care Provider Unavailabl e Allergies Active Allergy Reactions Criticality Noted Date Comments Amlodipine Swelling Low Cephalexin Unknown Hydrocodone-Acetaminophen Unknown Lisinopril Cough Low Sulfa (Sulfonamide Antibiotics) Unknown Medications azithromycin (ZITHROMAX Z-CORA) 250 mg tabletIndications:A cute bronchitis Take 2 tabs the first day and 1 tab days 2-5 1 Package 0 3 Active codeine-guaiFENesin (CHERATUSSIN AC) 10-100 mg/5 mL LiquidIndications:A cute bronchitis Take 10 mL by mouth every 4 hours as needed for Cough. 180 mL 0 3 Active metoprolol succinate (TOPROL XL) 50 mg Extended Release 24 hour tabletIndications:E ssential hypertension, benign Take 1 Tab by mouth daily. 90 Tab 1 4 Active triamterene-hydroch lorothiazide (DYAZIDE) 37.5-25 mg capsuleIndications: Essential hypertension, benign Take 1 Cap by mouth daily palliative care nurse. 90 Cap 1 4 Active rosuvastatin (CRESTOR) 5 mg tabletIndications:H ypercholesteremia Take 1 Tab by mouth daily at bedtime. 90 Tab 1 4 Active levothyroxine 112 mcg Oral tabletIndications:U nspecified hypothyroidism Take 1 Tab by mouth daily palliative care nurse. 90 Tab 1 4 Active losartan (COZAAR) 100 mg tablet Take 1 Tab by mouth daily. 90 Tab 1 4 Active folic acid (FOLVITE) 1 mg tablet Take 1 Tab by mouth daily. 90 Tab 1 4 Active lansoprazole (PREVACID) 30 mg Capsule, Delayed Release(E.C.)Indica tions:Peptic ulcer disease Take 1 Cap by mouth daily. 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 Immunizations Immunization Administration Dates Next Due (ADACEL/BOOSTRIX)(10 YR UP) TDAP VACCINE, 0.5ML, IM 07/19/2011 (PNEUMOVAX 23)(50 YRS UP) PN EUMOCOCCAL POLYSACCHARIDE (PPV23) 0.5 ML, IM 05/08/2012 Influenza Seasonal Unspecified Formulation IM ,06/18/2011 Family History Medical History Relation Name Comments Lung Cancer Father Stroke Father Colon Cancer Mother Hypertension Mother Breast Cancer Neg Hx Cancer Neg Hx Ovarian Cancer Neg Hx Relation Name Status Comments Father Mother Social History Tobacco Use Types Packs/Day Years Used Date Smoking Tobacco: Never Smokeless Tobacco: Never Alcohol Use Standard Drinks/Week Comments Yes 0 (1 standard drink = 0.6 oz pur e alcohol) ocassionally Comments No Sex and Gender Information Value Date Recorded Sex Assigned at Not on file Legal Sex Female 3:41 AM ORGANIZATIONAL EFFECTIVENESS DIRECTOR Gender Identity Not on file Sexual Orientation Not on file Occupation Industry Job Start Date Job End Date Not on file Not on file Not on file Not on file Last Filed Vital Signs Vital Sign Reading Time Taken Comments Blood Pressure 130/70 09/13/2013 12:22 PM ORGANIZATIONAL EFFECTIVENESS DIRECTOR Pulse 85 09/13/2013 11:56 AM ORGANIZATIONAL EFFECTIVENESS DIRECTOR Temperature 37.2 C (98.9 F) 09/13/2013 11:56 AM ORGANIZATIONAL EFFECTIVENESS DIRECTOR Respiratory Rate - - Oxygen Saturation 96% 09/13/2013 11:56 AM ORGANIZATIONAL EFFECTIVENESS DIRECTOR Inhaled Oxygen Concentration - - Weight 79.4 kg (175 lb) 09/13/2013 11:56 AM ORGANIZATIONAL EFFECTIVENESS DIRECTOR Height 164.1 cm (5' 4.6) 09/13/2013 11:56 AM CS T Body Mass Index 29.48 09/13/2013 11:56 AM ORGANIZATIONAL EFFECTIVENESS DIRECTOR Plan of Treatment Health Maintenance Due Date Last Done Comments ZOSTER VACCINE (1 of 2) 1994 OSTEOPOROSIS SCREENING 2009 PNEUMOCOCCAL VACCINE 50+ YEA RS (2 of 2 - PCV) 05/08/2013 05/08/2012 RSV VACCINE (60+ or ) (1 - 1-dose 75+ series) 12/14/2019 DTAP/TDAP/TD VACCINES (2 - T d or Tdap) 07/19/2021 07/19/2011 INFLUENZA VACCINE (#1) 2025 06/18/2013, 2010 FIT/FOBT Q 1 year Discontinued 06/25/2007 COLORECTAL SCREENING Discontinued 11/16/2010, 11/16/2010, 04/25/2009 Colorectal Cancer Screening Discontinued FIT-DNA Q 3 years Discontinued Flex Sig/CT Colonography Q 5 years Discontinued Insurance MEDICARE PART A AND B [facility] OPEN ACCESS Advance Directives For more information, please contact: [phone] Documents on File Type Date Recorded Patient Supervisor Machine Setter Expl anation Advance Directive POA 05/08/2012 1:10 PM
--- OUTSIDE RECORDS SUMMARY | 2025-04-18 15:20 | XMS_ITS | Encounter Summary ---
Author Organization [facility] Address [address] [place] [address] Care Team Providers Care Flotation Tender Helper Name Role Phone Radha Joshi MD Primary Care Provider Encounter Details Date Type Department Care Team (Latest Contact Info) Description 09/20/2001 Outpatient Historical [facility] Cao, Marci Raymundo MD NO ADDRESS ON FILE GYNECOLOGIC EXAMINATION (Primary Dx) Social History Tobacco Use Types Packs/Day Years Used Date Smoking Tobacco: Never Assessed Comments Unknown Sex and Gender Information Value Date Recorded Sex Assigned at Not on file Legal Sex Female 3:41 AM ER NURSE Gender Identity Not on file Sexual Orientation Not on file documented as of this encounter Plan of Treatment Not on file documented as of this encounter Visit Diagnoses Diagnosis Gynecological examination- Primary documented in this encounter Care Teams Flotation Tender Helper Relationship Specialty Start Date End Date Radha Joshi MD [address] [facility] [address] [place] [address] PCP - General 08/07/02 06/04/14 documented as of this encounter
--- OUTSIDE RECORDS SUMMARY | 2025-04-18 15:20 | XMS_ITS | Encounter Summary ---
Author Organization [facility] Address [address] [place] [address] Care Team Providers Care Painting Supervisor Name Role Phone Radha Joshi MD Primary Care Provider [phone] Encounter Details Date Type Department Care Team (Late st Contact Info) Description 12/30/2003 Outpatient Historical [facility] Internal Medicine [address] [address] Radha Joshi MD [address] [place] [address] [place] [address] Social History Tobacco Use Types Packs/Day Years Used Date Smoking Tobacco: Never Assessed Comments Unknown Sex and Gender Information Value Date Recorded Sex Assigned at Not on file Legal Sex Female 3:41 AM SHIP CLEANER Gender Identity Not on file Sexual Orientation Not on file documented as of this encounter Plan of Treatment Not on file documented as of this encounter Visit Diagnoses Not on filedocumented in this encounter Care Teams Painting Supervisor Relationship Specialty Start Date End Date Radha Joshi MD [address] [place] [address] PCP - General 08/07/02 06/04/14 documented as of this encounter
--- OUTSIDE RECORDS SUMMARY | 2025-04-18 15:20 | XMS_ITS | Encounter Summary ---
Author Organization [facility] Address [address] [place] [address] Care Team Providers Care Filling Machine Operator Name Role Phone Radha Joshi MD Primary Care Provider Encounter Details Date Type Department Care Team (Late st Contact Info) Description 07/20/2004 Outpatient Historical [facility] Internal Medicine [address] [address] Radha Joshi MD [address] [facility] [address] [place] [address] Social History Tobacco Use Types Packs/Day Years Used Date Smoking Tobacco: Never Assessed Comments Unknown Sex and Gender Information Value Date Recorded Sex Assigned at Not on file Legal Sex Female 3:41 AM REMEDIATION BIOANALYTICS CONSULTANT Gender Identity Not on file Sexual Orientation Not on file documented as of this encounter Plan of Treatment Not on file documented as of this encounter Visit Diagnoses Not on filedocumented in this encounter Care Teams Filling Machine Operator Relationship Specialty Start Date End Date Radha Joshi MD [address] [facility] [address] [place] [address] PCP - General 08/07/02 06/04/14 documented as of this encounter
--- OUTSIDE RECORDS SUMMARY | 2025-04-18 15:21 | XMS_ITS | Encounter Summary ---
Author Organization [facility] Address [address] [place] [address] Care Team Providers Care Tape Sewer Name Role Phone Radha Joshi MD Primary Care Provider [phone] Encounter Details Date Type Department Care Team (Late st Contact Info) Description 09/26/2007 Outpatient Historical [facility] Internal Medicine [address] [address] Radha Joshi MD [address] [facility] [address] [place] [address] Social History Tobacco Use Types Packs/Day Years Used Date Smoking Tobacco: Never Assessed Comments No Sex and Gender Information Value Date Recorded Sex Assigned at Not on file 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
--- OUTSIDE RECORDS SUMMARY | 2025-04-18 15:21 | XMS_ITS | Encounter Summary ---
Author Organization [employer] Address 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
--- OUTSIDE RECORDS SUMMARY | 2025-04-18 15:21 | XMS_ITS | Encounter Summary ---
Author Organization [facility] Address [address] [place] [address] Care Team Providers Care Floor Coverer Name Role Phone Radha Joshi MD Primary Care Provider [phone] Reason for Visit * Reason Comments Medication Refill Encounter Details Date Type Department Care Team (Late st Contact Info) Description 03/09/2013 Refill [facility] Internal Medicine [address] [place] [address] Radha Joshi MD [address] [facility] [address] [place] [address] Social History Tobacco Use Types Packs/Day Years Used Date Smoking Tobacco: Never Smokeless Tobacco: Never Alcohol Use Standard Drinks/Week Comments Yes 0 (1 standard drink = 0.6 oz pur e alcohol) ocassionally Comments No Sex and Gender Information Value Date Recorded Sex Assigned at Not on file 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
--- OUTSIDE RECORDS SUMMARY | 2025-04-18 15:21 | XMS_ITS | Encounter Summary ---
Author Organization [facility] Address [address] [place] [address] Care Team Providers Care Gauge Checker Name Role Phone Radha Joshi MD Primary Care Provider [phone] Reason for Visit * Reason Comments Medication Refill Encounter Details Date Type Department Care Team (Late st Contact Info) Description 05/25/2013 Refill [facility] Internal Medicine [address] [place] [address] Radha Joshi MD [address] [facility] [address] [place] [address] Social History Tobacco Use Types Packs/Day Years Used Date Smoking Tobacco: Never Smokeless Tobacco: Never Alcohol Use Standard Drinks/Week Comments Yes 0 (1 standard drink = 0.6 oz pur e alcohol) ocassionally Comments No Sex and Gender Information Value Date Recorded Sex Assigned at Not on file 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
--- OUTSIDE RECORDS SUMMARY | 2025-04-18 15:21 | XMS_ITS | Encounter Summary ---
Author Organization [facility] Address [address] [place] [address] Care Team Providers Care Ged Teacher Name Role Phone Radha Joshi MD Primary Care Provider Encounter Details Date Type Department Care Team (Latest Contact Info) Description 03/12/[address] 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
--- OUTSIDE RECORDS SUMMARY | 2025-04-18 15:21 | XMS_ITS | Encounter Summary ---
Author Organization [facility] Address [address] [place] [address] Care Team Providers Care Bank Vault Clerk Name Role Phone Radha Joshi MD Primary Care Provider Encounter Details Date Type Department Care Team (Late st Contact Info) Description 08/18/2003 Outpatient Historical [facility] Internal Medicine [address] [address] Radha Joshi MD [address] [facility] [address] [place] [address] Social History Tobacco Use Types Packs/Day Years Used Date Smoking Tobacco: Never Assessed Comments Unknown Sex and Gender Information Value Date Recorded Sex Assigned at Not on file Legal Sex Female 3:41 AM FLOOR HAND Gender Identity Not on file Sexual Orientation Not on file documented as of this encounter Plan of Treatment Not on file documented as of this encounter Visit Diagnoses Not on filedocumented in this encounter Care Teams Bank Vault Clerk Relationship Specialty Start Date End Date Radha Joshi MD [address] [facility] [address] [place] [address] PCP - General 08/07/02 06/04/14 documented as of this encounter
--- OUTSIDE RECORDS SUMMARY | 2025-04-18 15:21 | XMS_ITS | Encounter Summary ---
Author Organization [facility] Address 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
--- OUTSIDE RECORDS SUMMARY | 2025-04-18 15:21 | XMS_ITS | Encounter Summary ---
Author Organization [employer] Address 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
--- OUTSIDE RECORDS SUMMARY | 2025-04-18 15:21 | XMS_ITS | Encounter Summary ---
Author Organization [facility] Address [address] [place] [address] Care Team Providers Care Healthcare Project Manager Name Role Phone Radha Joshi MD Primary Care Provider [phone] Encounter Details Date Type Department Care Team (Late st Contact Info) Description 12/06/2002 Outpatient Historical [facility] Internal Medicine [address] [address] Radha Joshi MD [address] [facility] [address] [place] [address] Social History Tobacco Use Types Packs/Day Years Used Date Smoking Tobacco: Never Assessed Comments Unknown Sex and Gender Information Value Date Recorded Sex Assigned at Not on file 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
--- OUTSIDE RECORDS SUMMARY | 2025-04-18 15:21 | XMS_ITS | Encounter Summary ---
Author Organization [facility] Address [address] [place] [address] Care Team Providers Care Land Mobile Radio Technician Name Role Phone Radha Joshi MD Primary Care Provider Encounter Details Date Type Department Care Team (Late st Contact Info) Description 12/11/2002 Outpatient Historical [facility] Internal Medicine [facility] and [address] [place] [address] [place] [address] [facility] [address] [place] [address] Social History Tobacco Use Types Packs/Day Years Used Date Smoking Tobacco: Never Assessed Comments Unknown Sex and Gender Information Value Date Recorded Sex Assigned at Not on file 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
--- OUTSIDE RECORDS SUMMARY | 2025-04-18 15:21 | XMS_ITS | Encounter Summary ---
Author Organization [facility] Address [address] [place] [address] Care Team Providers Care Thermodynamicist Name Role Phone Radha Joshi MD Primary Care Provider [phone] Encounter Details Date Type Department Care Team (Late st Contact Info) Description 03/01/2009 Outpatient Historical [facility] Er, Authorized P NO ADDRESS ON FILE Rosalio Khan MD 1 [facility] [address] [place] [id number] Marlyn Coleman MD [address] [place] [phone] Unspecified, Hemorrhage of Gastrointestinal Tract Social History Tobacco Use Types Packs/Day Years Used Date Smoking Tobacco: Never Alcohol Use Standard Drinks/Week Comments No 0 (1 standard drink = 0.6 oz pur e alcohol) Comments No Sex and Gender Information Value Date Recorded Sex Assigned at Not on file Legal Sex Female 3:41 AM DIRECTOR OF DONOR RELATIONS Gender Identity Not on file Sexual Orientation Not on file documented as of this encounter Plan of Treatment Not on file documented as of this encounter Procedures Procedure Name Priority Date/Time Associated Diagnosis Comments HEMOGLOBIN AND HEMATOCRIT Routine 03/03/2009 5:00 AM CDT PATHOLOGY Routine 03/02/2009 4:10 PM CDT CBC WITH DIFFERENTIAL Timed Study 03/02/2009 4:50 AM CDT C-REACTIVE PROTEIN Timed Study 03/02/2009 4: 50 AM CDT BLOOD BANK AB IDENT Routine 03/01/2009 9 :25 PM CDT BLOOD BANK AB IDENT Routine 03/01/2009 9 :25 PM CDT DIRECT LEONOR C3 Routine 03/01/2009 9:25 PM CDT DIRECT LEONOR IGG Routine 03/01/2009 9:2 5 PM CDT DIRECT LEONOR POLY Routine 03/01/2009 9: 25 PM CDT CBC WITH DIFFERENTIAL Stat 03/01/2009 9:25 PM CDT TYPE AND SCREEN Routine 03/01/2009 9:25 PM CDT COMPREHENSIVE METABOLIC PANEL Stat 03/01/2009 9:25 PM CDT documented in this encounter Results * (ABNORMAL) HEMOGLOBIN AND HEMATOCRIT (03/03/2009 5:00 AM CDT) HEMOGLOBIN 11.3(L) 11.8 - 14.8 g/dL [facility] HEMATOCRIT 35.1(L) 35.5 - 44.0 % [facility] 03/03/2009 5:00 AM CDT 03/03/2009 5:29 AM CDT us Ren Wilder MD HEMATOLOGY ORDERABLES Final R esult INTERFACE SYSTEM Refer to clinic/hospital department [facility] CLIA# [id number] [address] [place], [place] [address] * PATHOLOGY (03/02/2009 4:10 PM CDT) FINAL REPORT [facility] [address] [place], [place] [address] Patient: ROXANA HUBER : 1945 Procedure Date: 03/02/2009 Accession Date: 03/02/2009 Case No: [id number] Ordering Dr: REN WILDER Case types AW, BW, FW, NW and SH are performed by [facility], [place], [place] SURGICAL PATHOLOGY & NON-GYNECOLOGIC CYTOPATHOLOGY REPORT DIAGNOSIS STOMACH, FUNDUS, BIOPSIES: - SUPERFICIAL MUCOSAL EROSION, PIECES OF. Specimen Description: Gastric ulcer biopsy. Operative Procedure: EGD. Patient Information/Histor y/Diagnosis: Ulcer. Gross: The specimen is received in a container labeled Roxana Huber. and stomach gastric ulcer biopsy, and consist of six, light bob tissue fragments that range in diameter from 0.1 to 0.5 cm. The specimen is entirely submitted in A1. OJL/BRIDGETT 03.03.2009 07:56 am Microscopic: The slides are labeled Roxana Huber and [id number]. The biopsies from the stomach consist of pieces of fundic mucosa. There are areas of superficial erosion of the mucosal surface with a small amount of an associated fibrinopurulent exudate. There are areas of mild acute inflammation in the superficial lamina propria. The number of chronic inflammatory cells in the lamina propria is not significantly increased. There are reactive changes within the surface epithelium and crypts, but there is no significant cytologic atypia. No Helicobacter pylori are identified by H&E staining. JCL/LKP 03.03.2009 03:37 pm Staging Form: No. ELECTRONIC SIGNATURE FOR ARIN MART M.D.- 03/03/09 06:09 pm INTERFACE SYSTEM Specimen of unknown material (specimen) 03/02/2009 4:10 PM CDT us Ren Wilder MD PATHOLOGY/CYTOLOGY ORDERABLES Edited INTERFACE SYSTEM Refer to clinic/hospital department * C-REACTIVE PROTEIN (03/02/2009 4:50 AM CDT) [facility] CRP 0.3 0.0 - 0.8 mg/dL [facility] 03/02/2009 4:50 AM CDT 03/02/2009 5:18 AM CDT us Rosalio Khan MD CHEMISTRY ORDERABLES Final Resul t INTERFACE SYSTEM Refer to clinic/hospital department [facility] CLIA# [id number] [address] [place], [place] [address] * (ABNORMAL) CBC WITH DIFFERENTIAL (03/02/2009 4:50 AM CDT) [facility] RBC 3.97 3.90 - 4.90 M/uL [facility] MCHC 33.2 31.5 - 35.5 % [facility] MCV 86.4 82.0 - 99.0 fL [facility] PLATELETS 269 140 - 350 K/uL [facility] HEMOGLOBIN 11.4(L) 11.8 - 14.8 g/dL [facility] RDW 13.8 11.5 - 14.5 % [facility] WBC 5.1 4.0 - 9.8 K/uL [facility] MCH 28.7 27.2 - 32.6 pg [facility] MPV 10.8 9.3 - 12.4 fL [facility] HEMATOCRIT 34.3(L) 35.5 - 44.0 % [facility] RDW-STDEV 43.6 37.1 - 48.7 fL [facility] NEUTROPHILS 49 45 - 70 % [facility] MONOCYTE ABSOLUTE 0.51 0.10 - 1.30 K/uL [facility] NEUTROPHIL ABSOLUTE 2.48 1.90 - 7.00 K/uL [facility] MONOCYTES 10 3 - 13 % [facility] EOSINOPHILS 2 0 - 7 % [facility] EOSINOPHIL ABSOLUTE 0.11 0.00 - 0.70 K/uL [facility] LYMPHOCYTES 39 16 - 45 % [facility] LYMPHOCYTE ABSOLUTE 1.97 0.70 - 4.50 K/uL [facility] BASOPHILS 1 0 - 2 % [facility] BASOPHILS ABSOLUTE 0.03 0.00 - 0.20 K/uL [facility] 03/02/2009 4:50 AM CDT 03/02/2009 5:18 AM CDT Result [facility] Rosalio Khan MD HEMATOLOGY ORDERABLES Edited Performing Organization Address City/[facility] de Phone Number INTERFACE SYSTEM Refer to clinic/hospital department [facility] CLIA# [id number] [address] [place] [address] * ANTIBODY IDENTIFICATION (03/01/2009 9:25 PM CDT) ANTIBODY ID PANEL Anti-Isaacs a (Jka) Dylonaux [facility] 03/01/2009 9:25 PM CDT Result [facility] Peter Farooq MD BLOOD BANK ORDERABLES Edited Performing Organization Address City/[facility] de Phone Number INTERFACE SYSTEM Refer to clinic/hospital department [facility] CLIA# [id number] [address] [place] [address] * ANTIBODY IDENTIFICATION (03/01/2009 9:25 PM CDT) ANTIBODY ID - ELUATE Panagglutinin [facility] 03/01/2009 9:25 PM CDT Peter Farooq MD BLOOD BANK ORDERABLES Final Result Performing Organization Address City/[facility] Co de Phone Number INTERFACE SYSTEM Refer to clinic/hospital department [facility] CLIA# [id number] [address] [place] [address] * DIRECT LEONOR C3 (03/01/2009 9:25 PM CDT) DIRECT ANTIGLOBULIN C3 Negative [facility] 03/01/2009 9:25 PM CDT Peter Farooq MD BLOOD BANK ORDERABLES Final Result Performing Organization Address [facility] de Phone Number INTERFACE SYSTEM Refer to clinic/hospital department [facility] CLIA# [id number] [address] [place] [address] * DIRECT LEONOR IGG (03/01/2009 9:25 PM CDT) DIRECT ANTIGLOBULIN IGG Positive [facility] 03/01/2009 9:25 PM CDT Peter Farooq MD BLOOD BANK ORDERABLES Final Result Performing Organization Address [facility] de Phone Number INTERFACE SYSTEM Refer to clinic/hospital department [facility] CLIA# [id number] [address] [place] [address] * DIRECT LEONOR POLY (03/01/2009 9:25 PM CDT) DIRECT ANTIGLOBULIN POLY Positive [facility] 03/01/2009 9:25 PM CDT Peter Farooq MD BLOOD BANK ORDERABLES Final Result Performing Organization Address City/[facility] de Phone Number INTERFACE SYSTEM Refer to clinic/hospital department [facility] CLIA# [id number] [address] [place] [address] * TYPE AND SCREEN (03/01/2009 9:25 PM CDT) HISTORY CHECK History Checked [facility] SPECIMEN LIFE 3 days from drawdate [facility] ABO/RH TYPE O Positive [facility] ANTIBODY SCREEN Positive [facility] 03/01/2009 9:25 PM CDT us Peter Farooq MD BLOOD BANK ORDERABLES Edited INTERFACE SYSTEM Refer to clinic/hospital department [facility] CLIA# [id number] [address] [place] [address] * CBC WITH DIFFERENTIAL (03/01/2009 9:25 PM CDT) MCV 87.2 82.0 - 99.0 fL [facility] PLATELETS 302 140 - 350 K/uL [facility] HEMOGLOBIN 13.0 11.8 - 14.8 g/dL [facility] RDW 13.8 11.5 - 14.5 % [facility] WBC 8.2 4.0 - 9.8 K/uL [facility] MCH 29.1 27.2 - 32.6 pg [facility] MPV 10.9 9.3 - 12.4 fL [facility] HEMATOCRIT 38.9 35.5 - 44.0 % [facility] RDW-STDEV 43.6 37.1 - 48.7 fL [facility] RBC 4.46 3.90 - 4.90 M/uL [facility] MCHC 33.4 31.5 - 35.5 % [facility] NEUTROPHILS 63 45 - 70 % [facility] NEUTROPHIL ABSOLUTE 5.15 1.90 - 7.00 K/uL [facility] EOSINOPHILS 1 0 - 7 % [facility] EOSINOPHIL ABSOLUTE 0.10 0.00 - 0.70 K/uL [facility] LYMPHOCYTES 28 16 - 45 % [facility] LYMPHOCYTE ABSOLUTE 2.27 0.70 - 4.50 K/uL [facility] BASOPHILS 0 0 - 2 % [facility] BASOPHILS ABSOLUTE 0.02 0.00 - 0.20 K/uL [facility] MONOCYTES 8 3 - 13 % [facility] MONOCYTE ABSOLUTE 0.64 0.10 - 1.30 K/uL [facility] 03/01/2009 9:25 PM CDT 03/01/2009 9:31 PM CDT us Peter Farooq MD HEMATOLOGY ORDERABLES Edited INTERFACE SYSTEM Refer to clinic/hospital department [facility] CLIA# [id number] [address] [place], [place] [address] * (ABNORMAL) COMPREHENSIVE METABOLIC PANEL (03/01/2009 9:25 PM CDT) GLUCOSE 108(H) 65 - 99 mg/dL [facility] AST 23 12 - 32 U/L [facility] BUN 20 6 - 20 mg/dL [facility] CALCIUM 9.6 8.6 - 10.2 mg/dL [facility] ALBUMIN 4.3 3.4 - 4.8 g/dL [facility] CHLORIDE 103 96 - 108 mmol/L [facility] CREATININE 0.63 0.51 - 0.95 mg/dL [facility] ALT 19 0 - 31 U/L [facility] SODIUM 141 135 - 145 mmol/L [facility] ALKALINE PHOSPHATASE 36 35 - 104 U/L [facility] CO2 26 22 - 30 mmol/L [facility] BILIRUBIN TOTAL 0.4 0.2 - 1.0 mg/dL [facility] POTASSIUM 3.6 3.5 - 4.9 mmol/L [facility] TOTAL PROTEIN 7.5 6.3 - 8.6 g/dL [facility] GFR, >60 >=60 mL/min/1. 7 sq meter [facility] GFR >60 >=60 mL/min/1. 7 sq meter [facility] Comment: Modification of Diet in Renal Disease (MDRD) study formula. Estimated GFR rate interpretative information for both Americans and non- Americans is available on the [facility] Intranet at: [email or web address] Select: Lab Policies and Procedures Select: Reference Ranges - GFR 03/01/2009 9:25 PM CDT 03/01/2009 9:31 PM CDT Peter Farooq MD CHEMISTRY ORDERABLES E dited INTERFACE SYSTEM Refer to clinic/hospital department [facility] CLIA# [id number] [address] [place] [address] documented in this encounter Visit Diagnoses Diagnosis Hemorrhage of gastrointestinal tract, unspecified documented in this encounter Care Teams Thermodynamicist Relationship Specialty Start Date End Date Radha Joshi MD [address] [facility] [address] [place] [address] PCP - General 08/07/02 06/04/14 documented as of this encounter
--- OUTSIDE RECORDS SUMMARY | 2025-04-18 15:21 | XMS_ITS | Encounter Summary ---
Author Organization [facility] Address [address] [place] [address] Care Team Providers Care Office Cashier Name Role Phone Radha Brennan MD Primary Care Provider Encounter Details Date Type Department Care Team (Late st Contact Info) Description 02/23/2009 Outpatient Historical [facility] Radha Recinos MD [address] [place] [address] Cough Social History Tobacco Use Types Packs/Day Years Used Date Smoking Tobacco: Never Alcohol Use Standard Drinks/Week Comments No 0 (1 standard drink = 0.6 oz pur e alcohol) Comments No Sex and Gender Information Value Date Recorded Sex Assigned at Not on file Legal Sex Female 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 MANAGER Gender Identity Not on file Sexual Orientation Not on file documented as of this encounter Progress Notes * Radha Brennan MD - 02/24/2009 7:46 AM CDTQuick Note: Please tell patient that normal documented in this encounter Plan of Treatment Not on file documented as of this encounter Procedures Procedure Name Priority Date/Time Associated Diagnosis Comments XR CHEST PA AND LATERAL 2 VW Routine 02/23/2009 11:34 AM CDT documented in this encounter Results * XR CHEST PA AND LATERAL (02/23/2009 11:34 AM CDT) Anatomical Region Laterality Modality Chest Other 02/23/2009 11:3 4 AM CDT Narrative 02/23/2009 11:39 AM CDT [address] [address] Admit Date: 02/23/2009 ROXANA HUBER Sex: F Admit Prov: ARDHA BRENNAN Date: 1945 Primary Care Prov: RADHA BRENNAN CMRN: [id number] [id number] [facility] Ordering Prov: N/A Accession Number: [id number] Interpretation PA and lateral chest x-ray. History: Cough. Findings: Comparison is made to a previous examination of August 15, 2007. There has been no significant interval change. The lung mae are clear and well aerated, without significant infiltrate. There is no pneumothorax or pleural effusion. The heart size is normal. IMPRESSION: No acute disease. . Dictated by: ALBERTA HOFFMANN 02/23/2009 11:36 Electronically signed by: ALBERTA HOFFMANN 02/23/2009 11:37 Procedure Note Alberta Hoffmann MD - 02/23/[address] [address] Admit Date: 02/23/2009 ROXANA HUBER Sex: F Admit Prov: RADHA BRENNAN Date: 1945 Primary Care Prov: RADHA BRENNAN CMRN: [id number] [facility] [id number] IMAGING SERVICES Ordering Prov: N/A Interpretation PA and lateral chest x-ray. History: Cough. Findings: Comparison is made to a previous examination of 2006. There has been no significant interval change. The lung fieldsare clear and well aerated, without significant infiltrate. There is no pneumothorax or pleural effusion. The heart size is normal. IMPRESSION: No acute disease. . Dictated by: ALBERTA HOFFMANN 02/23/2009 11:36 Electronically signed by: ALBERTA HOFFMANN 02/23/2009 11:37 Radha Brennan MD DIAGNOSTIC IMAGING ORDERABLES Final Result documented in this encounter Visit Diagnoses Diagnosis Cough documented in this encounter Care Teams Office Cashier Relationship Specialty Start Date End Date Radha Brennan MD [address] [facility] [address] [place] [address] PCP - General 08/07/02 06/04/14 documented as of this encounter
--- OUTSIDE RECORDS SUMMARY | 2025-04-18 15:21 | XMS_ITS | Encounter Summary ---
Author Organization [facility] Address [address] [place] [address] Care Team Providers Care Blast Furnace Supervisor Name Role Phone Radha Joshi MD Primary Care Provider [phone] Encounter Details Date Type Department Care Team (Late st Contact Info) Description 02/18/2003 Outpatient Historical [facility] Internal Medicine [address] [address] Radha Joshi MD [address] [facility] [address] [place] [address] Social History Tobacco Use Types Packs/Day Years Used Date Smoking Tobacco: Never Assessed Comments Unknown Sex and Gender Information Value Date Recorded Sex Assigned at Not on file 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
--- OUTSIDE RECORDS SUMMARY | 2025-04-18 15:21 | XMS_ITS | Encounter Summary ---
Author Organization [employer] Address 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
--- OUTSIDE RECORDS SUMMARY | 2025-04-18 15:21 | XMS_ITS | Encounter Summary ---
Author Organization [employer] Address [address] [place] [address] Care Team Providers Care Mortgage Loan Underwriter Name Role Phone Radha Joshi MD Primary Care Provider [phone] Encounter Details Date Type Department Care Team (Latest Contact Info) Description 10/30/2007 Outpatient Historical [facility] Radha Joshi MD [address] [facility] [facility] [address] [place] [address] Other Abnormal Clinical Finding Social History Tobacco Use Types Packs/Day Years Used Date Smoking Tobacco: Never Assessed Comments No Sex and Gender Information Value Date Recorded Sex Assigned at Not on file Legal Sex Female 3:41 AM HUMAN RESOURCE ANALYST Gender Identity Not on file Sexual Orientation Not on file documented as of this encounter Plan of Treatment Not on file documented as of this encounter Procedures Procedure Name Priority Date/Time Associated Diagnosis Comments TSH Routine 10/30/2007 2:41 PM HUMAN RESOURCE ANALYST T4 FREE Routine 10/30/2007 2:41 PM HUMAN RESOURCE ANALYST LIPID PANEL Routine 10/30/2007 2:41 PM HUMAN RESOURCE ANALYST COMPREHENSIVE METABOLIC PANEL Routine 10/30/2007 2:41 PM HUMAN RESOURCE ANALYST documented in this encounter Results * (ABNORMAL) TSH (10/30/2007 2:41 PM HUMAN RESOURCE ANALYST) TSH <0.02(L) 0.27 - 4.20 uU/mL [facility] Blood specimen (specimen) 10/30/2007 2:41 PM HUMAN RESOURCE ANALYST 10/30/2007 2:41 PM HUMAN RESOURCE ANALYST us Radha Joshi MD CHEMISTRY ORDERABLES Final Res ult Performing Organization Address City/[facility]/ZIP Co de Phone Number [facility] [address] [place] [address] * T4 FREE (10/30/2007 2:41 PM HUMAN RESOURCE ANALYST) T4 FREE 1.4 0.9 - 1.7 ng/dL [facility] Blood specimen (specimen) 10/30/2007 2:41 PM HUMAN RESOURCE ANALYST 10/30/2007 2:41 PM HUMAN RESOURCE ANALYST Radha Joshi MD CHEMISTRY ORDERABLES Final Res ult Performing Organization Address City/[facility]/ZIP Co de Phone Number [facility] [address] [place], [place] [address] * (ABNORMAL) LIPID PANEL (10/30/2007 2:41 PM HUMAN RESOURCE ANALYST) TRIGLYCERIDE 116 10 - 149 mg/dL [facility] CHOL/HDL RATIO 2.3 2.0 - 5.[address] [facility] HDL 76(H) 40 - 59 mg/dL [facility] CHOLESTEROL 172 100 - 199 mg/dL [facility] LDL CALCULATED 73 <=99 mg/dL [facility] LIPID PANEL COMMENT See Below N [facility] Comment: The adult ATP and pediatric NCEP classifications for lipids are available on the [facility] Intranet at: [email or web address] [email or web address] Select: Lab Policies and Procedures,Current Select: Lipid Panel Interpretation Blood specimen (specimen) 10/30/2007 2:41 PM HUMAN RESOURCE ANALYST 10/30/2007 2:41 PM HUMAN RESOURCE ANALYST us Radha Joshi MD CHEMISTRY ORDERABLES Edited [facility] [address] [place] [address] * COMPREHENSIVE METABOLIC PANEL (10/30/2007 2:41 PM HUMAN RESOURCE ANALYST) CREATININE 0.57 0.51 - 0.95 mg/dL [facility] SODIUM 141 135 - 145 mmol/L [facility] ALT 21 0 - 31 U/L [facility] ALKALINE PHOSPHATASE 37 35 - 104 U/L [facility] BILIRUBIN TOTAL 0.4 0.2 - 1.0 mg/dL [facility] CO2 28 22 - 30 mmol/L [facility] TOTAL PROTEIN 7.2 6.3 - 8.6 g/dL [facility] POTASSIUM 3.7 3.5 - 4.9 mmol/L [facility] GLUCOSE 96 65 - 99 mg/dL [facility] AST 26 12 - 32 U/L [facility] BUN 10 6 - 20 mg/dL [facility] CALCIUM 9.0 8.4 - 10.2 mg/dL [facility] CHLORIDE 102 96 - 108 mmol/L [facility] ALBUMIN 4.2 3.4 - 4.8 g/dL [facility] GFR, >60 >=60 mL/min/1.[address] [facility] GFR >60 >=60 mL/min/1.[address] [facility] Comment: Estimated GFR rate interpretative information for both Americans and non- Americans is available on the [facility] Intranet at: [email or web address] Select: Lab Policies and Procedures Select: Reference Ranges - GFR Blood specimen (specimen) 10/30/2007 2:41 PM HUMAN RESOURCE ANALYST 10/30/2007 2:41 PM HUMAN RESOURCE ANALYST us Radha Joshi MD CHEMISTRY ORDERABLES Edited [facility] [address] [place] [address] documented in this encounter Visit Diagnoses Diagnosis Other abnormal clinical finding documented in this encounter Care Teams Mortgage Loan Underwriter Relationship Specialty Start Date End Date Radha Joshi MD [address] [facility] [address] [place] [address] PCP - General 08/07/02 06/04/14 documented as of this encounter
--- OUTSIDE RECORDS SUMMARY | 2025-04-18 15:21 | XMS_ITS | Encounter Summary ---
Author Organization [facility] Address [address] [place] [address] Care Team Providers Care Cloth Examiner Name Role Phone Radha Joshi MD Primary Care Provider Encounter Details Date Type Department Care Team (Late st Contact Info) Description 08/21/2003 Outpatient Historical [facility] Radha Joshi MD [address] [place] [address] BACKACHE NOS (Primary Dx) Social History Tobacco Use Types Packs/Day Years Used Date Smoking Tobacco: Never Assessed Comments Unknown Sex and Gender Information Value Date Recorded Sex Assigned at Not on file Legal Sex Female 3:41 AM RESEARCH STATISTICIAN Gender Identity Not on file Sexual Orientation Not on file documented as of this encounter Plan of Treatment Not on file documented as of this encounter Visit Diagnoses Diagnosis Backache, unspecified- Primary documented in this encounter Care Teams Cloth Examiner Relationship Specialty Start Date End Date Radha Joshi MD [address] [place] [address] PCP - General 08/07/02 06/04/14 documented as of this encounter
--- OUTSIDE RECORDS SUMMARY | 2025-04-18 15:21 | XMS_ITS | Encounter Summary ---
Author Organization [facility] Address 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 [address] [place] [address] PCP - General 08/07/02 06/04/14 documented as of this encounter
--- OUTSIDE RECORDS SUMMARY | 2025-04-18 15:21 | XMS_ITS | Encounter Summary ---
Author Organization [facility] Address [address] [place] [address] Care Team Providers Care Carbon Printer Name Role Phone Radha Joshi MD Primary Care Provider Encounter Details Date Type Department Care Team (Late st Contact Info) Description 11/01/2007 Outpatient Historical [facility] [address] [address] Radha Joshi MD [address] [facility] [address] [place] [address] Social History Tobacco Use Types Packs/Day Years Used Date Smoking Tobacco: Never Assessed Comments No Sex and Gender Information Value Date Recorded Sex Assigned at Not on file Legal Sex Female 3:41 AM SACK FILLER Gender Identity Not on file Sexual Orientation Not on file documented as of this encounter Plan of Treatment Not on file documented as of this encounter Visit Diagnoses Not on filedocumented in this encounter Care Teams Carbon Printer Relationship Specialty Start Date End Date Radha Joshi MD [address] [facility] [address] [place] [address] PCP - General 08/07/02 06/04/14 documented as of this encounter
--- OUTSIDE RECORDS SUMMARY | 2025-04-18 15:21 | XMS_ITS | Encounter Summary ---
Author Organization [facility] Address [address] [place] [address] Care Team Providers Care Stadium Manager Name Role Phone Radha Joshi MD Primary Care Provider Encounter Details Date Type Department Care Team (Late st Contact Info) Description 06/13/2003 Outpatient Historical [facility] Internal Medicine [address] [address] Radha Joshi MD [address] [facility] [address] [place] [address] Social History Tobacco Use Types Packs/Day Years Used Date Smoking Tobacco: Never Assessed Comments Unknown Sex and Gender Information Value Date Recorded Sex Assigned at Not on file Legal Sex Female 3:41 AM MOVEMENT THERAPIST Gender Identity Not on file Sexual Orientation Not on file documented as of this encounter Plan of Treatment Not on file documented as of this encounter Visit Diagnoses Not on filedocumented in this encounter Care Teams Stadium Manager Relationship Specialty Start Date End Date Radha Joshi MD [address] [facility] [address] [place] [address] PCP - General 08/07/02 06/04/14 documented as of this encounter
--- OUTSIDE RECORDS SUMMARY | 2025-04-18 15:21 | XMS_ITS | Continuity of Care Document ---
Author Organization [facility] Address [address] [place] [address] Phone Care Team Providers Care Director Ship Name Role Phone Ollie OD, Fabio Unavailable Unavailable Allergies, Adverse Reactions, Alerts Substance Reaction Status Criticality sulfanilamide Active No Information CEPHALEXIN MONOHYDRATE Active No In formation codeine Active No Information Medications Medication Instructions Dosage Effective Dates (start - stop) Status Comments Norvasc 2.5 mg tablet take 1 tablet by oral route every day 2.5 MG - Active lansoprazole 30 mg capsule,delayed release - Active metoprolol tartrate 25 mg tablet - Active losartan 50 mg tablet - Active Crestor 5 mg tablet - Active hydrochlorothiazide 50 mg tablet - Active folic acid 1 mg tablet - Active levothyroxine 112 mcg capsule - Active Advance Directives Directive Yes / No Effective Date File Name No Information Encounters Encounter Description Practice Location Reason(s) For Visit Diagnoses Date Provider [facility], [address] [address] [place], [id number], tel:[phone] [facility] vision is improved OU (chief complaint)vis ion is brighter OU (chief complaint) Senile nuclear sclerosisLens replaced by other means 2012 Ollie Fabio. [address] [place], [place], [id number], [place]. 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 [address], [place], [place], [id number], [place]. tel:[phone] [facility], [address], [place], [place], [id number], [place] tel:[phone] [facility] double vision OU (chief complaint)col ors are brighter/more vivid OD (chief complaint) Senile nuclear sclerosisLens replaced by other means 2012 Ollie Mccarthy. [address], [place], [place], [id number], [place]. tel:[phone] [facility], [address], [place], [place], [id number], [place] tel:[phone] [facility] Senile nuclear sclerosis 2012 Vinay Lipscomb. [address], [place], [id number], [place]. tel:[phone] [facility], [address], [place], [place], [id number], [place] tel:[phone] [facility] Senile nuclear sclerosis 2012 [facility]. [address], [place], [place], [id number], [place]. tel:[phone] [facility], [address], [place], [place], [id number], [place] tel:[phone] [facility] Senile nuclear sclerosis 2012 Vinay Lipscomb. [address], [place], [id number], [place]. tel:[phone] [facility], [address], [place], [place], [id number], [place] tel:[phone] [facility] Senile nuclear sclerosis 2012 Anibal Barragan. [address], [place], [place], [id number], [place]. tel:[phone] [facility], [address], [place], [place], [id number], [place] tel:[phone] [facility] vision is improved OS (chief complaint)no complaints OS (chief complaint) Lens replaced by other meansSenile nuclear sclerosis 2012 Batshevabonita Alex. [address], [place], [place], [id number], [place]. tel:[phone] [facility], [address], [place], [place], [id number], [place] tel:[phone] [facility] vision is brighter OS (chief complaint) Senile nuclear sclerosis 2012 Ollie Mccarthy. [address], [place], [place], [id number], [place]. tel:[phone] [facility], [address], [place], [place], [id number], [place] tel:[phone] [facility] Senile nuclear sclerosis 2012 Kesha Kan. [address], [place], [place], [id number], [place]. tel:[phone] [facility], [address], [place], [id number], [place] tel:[phone] [facility] Senile nuclear sclerosis 2012 Cherri Blunt. [address], [place], [place], [id number], [place]. tel:[phone] [facility], [address], [place], [place], [id number], [place] tel:[phone] [facility] Senile nuclear sclerosis 2012 [facility]. [address], [place], [place], [id number], [place]. tel:[phone] [facility], [address], [place], [place], [id number], [place] tel:[phone] [facility] Senile nuclear sclerosis 2012 Cherri Blunt. [address] [place], [id number], [place]. tel:[phone] [facility], [address] [place], [id number], [place] tel:[phone] [facility] Senile nuclear sclerosisMacular puckering of retinaOther vitreous opacitiesBenign neoplasm of choroid 2012 Ollie Mccarthy. [address] [place], [id number], [place]. tel:[phone] Family History Family Member Type Diagnosis Age At Onset Problem (finding) Family history of Cance r Problem (finding) Family history of mother diagnosed myasthemia gravis ocular type Sister Problem (finding) diabetes melli tus in first degree relative Payers Payer name Insurance type Covered constitution party ID Authoriza tion(s) [place]ICARE [place] [id number] [facility] Benefit Plans-[place] [id number] Social History Type Description Quantity Date Captured Comments Sex Female Smoking Status No Information Chief Complaint And Reason For Visit From encounter dated '03/07/2013 14:00'. vision is improved OU (chief complaint). Description: vision is improved OU vision is brighter OU (chief complaint). Description: vision is brighter OU History Of Present Illness Encounter Date Complaint History Of Prese nt Illness vision is brighter vision is brandy ghter OU vision is improved vision is imp roved OU vision is improved vision is imp roved OD no complaints no complaints OD double vision has improved doubl e vision has improved OD double vision double vision OU colors are brighter/more vivid c olors are brighter/more vivid OD vision is improved vision is imp roved OS no complaints no complaints OS vision is brighter vision is brandy ghter OS Instructions Date Instruction Additional Infor tate - ok to schedule CE with IOL OS first, [facility] Related to Senile, nuclear sclerosis (NS) Senile, nuclear scle rosis (NS) - Discussed cataract(s) with patient. Reviewed risks, benefits, alternatives of surgery. Discussed need for Rx at D&N post-op, GASH, and refractive endpoint. In depth discussion about the fact she may still need glasses post-op for distance and nicolle. for near. Pt has astigmatism. Option of CE w/ IOL OS first. Patient wishes to proceed w/ surgery. f/u at [facility] Related to Senile, nuclear sclerosis (NS) Epiretinal membrane - Vision limitation post-op secondary to ERM explained. Pt will be on a NSAID post-op OD only. Pt understands. Related to Epiretinal membrane Vitreous floaters - Discussed PVD. Signs, symptoms and risks of retinal detachment or tears were discussed in detail. If pt. notices any symptoms discussed, contact office [facility]. Monitor closely with routine/referring eye care provider. Related to Vitreous floaters Nevus, choroidal - E xplained.Need to monitor it explained.Rec. yearly eye exams. 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
--- OUTSIDE RECORDS SUMMARY | 2025-04-18 15:21 | XMS_ITS | Encounter Summary ---
Author Organization [facility] Address [address] [place] [address] Care Team Providers Care Stitcher Standard Machine Name Role Phone Radha Joshi MD Primary Care Provider [phone] Encounter Details Date Type Department Care Team (Late st Contact Info) Description 10/30/2007 Outpatient Historical [facility] Internal Medicine [address] [address] Radha Joshi MD [address] [facility] [address] [place] [address] Social History Tobacco Use Types Packs/Day Years Used Date Smoking Tobacco: Never Assessed Comments No Sex and Gender Information Value Date Recorded Sex Assigned at Not on file Legal Sex Female 3:41 AM LUG LOADER Gender Identity Not on file Sexual Orientation Not on file documented as of this encounter Plan of Treatment Not on file documented as of this encounter Visit Diagnoses Not on filedocumented in this encounter Care Teams Stitcher Standard Machine Relationship Specialty Start Date End Date Radha Joshi MD [address] [facility] [address] [place] [address] PCP - General 08/07/02 06/04/14 documented as of this encounter
--- OUTSIDE RECORDS SUMMARY | 2025-04-18 15:21 | XMS_ITS | Encounter Summary ---
Author Organization [facility] Address [address] [place] [address] Care Team Providers Care Buckle Strap Puncher Name Role Phone Radha Joshi MD Primary Care Provider [phone] Encounter Details Date Type Department Care Team (Late st Contact Info) Description 11/03/2008 Outpatient Historical [facility] Pee Ramirez MD NO ADDRESS ON FILE Social History Tobacco Use Types Packs/Day Years Used Date Smoking Tobacco: Never Alcohol Use Standard Drinks/Week Comments No 0 (1 standard drink = 0.6 oz pur e alcohol) Comments No Sex and Gender Information Value Date Recorded Sex Assigned at Not on file Legal Sex Female 3:41 AM BIODIESEL PLANT SUPERINTENDENT Gender Identity Not on file Sexual Orientation Not on file documented as of this encounter Plan of Treatment Not on file documented as of this encounter Procedures Procedure Name Priority Date/Time Associated Diagnosis Comments PATHOLOGY Routine 11/03/2008 1:46 PM BIODIESEL PLANT SUPERINTENDENT documented in this encounter Results * PATHOLOGY (11/03/2008 1:46 PM BIODIESEL PLANT SUPERINTENDENT) FINAL REPORT [address] [place], [place] [address] Patient: ROXANA HUBER : 1945 Procedure Date: 11/03/2008 Accession Date: 11/03/2008 Case No: [id number] Ordering Dr: HILARIO RAMIREZ Case types AW, BW, FW, NW and SH are performed by [facility] [place], [place], [place] SURGICAL PATHOLOGY & NON-GYNECOLOGIC CYTOPATHOLOGY REPORT DIAGNOSIS SMALL INTESTINE, DUODENUM, ENDOSCOPIC BIOPSY: - INCREASED INTRAEPITHELIAL LYMPHOCYTES, PATCHY AND MILD. STOMACH, ENDOSCOPIC BIOPSY: - CHRONIC GASTRITIS, MILD. LARGE INTESTINE, RIGHT, ENDOSCOPIC BIOPSY: - NO SIGNIFICANT HISTOPATHOLOGIC ALTERATIONS. Specimen Description: (1) Small bowel; (2) gastric biopsy; (3) random right colon. Operative Procedure: Colonoscopy, EGD. Patient Information/History /Diagnosis: (1) Small bowel Bx. Rule out sprue (chronic diarrhea and/or Fe-deficiency anemia). (2) Rule out H. pylori infection. (3) Chronic diarrhea. Please look for collagenous colitis, microscopic colitis. Gross: The specimens are received in three containers, each labeled Roxana Huber. Received in the first container and labeled small bowel are three pieces of bob tissue ranging from 0.3 to 0.4 cm in greatest dimension. The entire specimen is submitted in cassette A1. Received in the second container and labeled gastric biopsy is a 0.3 x 0.2 x 0.1-cm bob piece of tissue. The entire specimen is submitted in cassette B1. Received in the third container and labeled random right colon biopsy are three pieces of bob tissue ranging from 0.2 to 0.3 cm in greatest dimension. The entire specimen is submitted in cassette C1. L[facility]/DENISE 11.03.2008 09:48 pm Microscopic: Received are slides labeled [id number]. Sections of small bowel sample duodenal mucosa. There is preservation of mucosal architecture. Surface epithelium is intact. There is a patchy, mild increase in intraepithelial lymphocytes. Chronic inflammatory cells are unremarkable in distribution within the lamina propria. Increased intraepithelial lymphocytes is a finding typical of celiac sprue. The diffuse, marked increase in intraepithelial lymphocytes typical of celiac sprue is not present in this material. Increased intraepithelial lymphocytes is not specific for celiac sprue and can be identified in a number of clinical conditions including allergies to alimentary proteins other than gluten, some gastrointestinal tract infections, ingestion of some drugs, including nonsteroidal antiinflammatory drugs, and autoimmune conditions. Substantial acute inflammatory changes are absent. Sections of gastric sample fundic mucosa. There are patchy, mild subepithelial infiltrates of chronic inflammatory cells. Acute inflammatory changes are absent. Organisms characteristic of Helicobacter pylori are not identified on H&E-stained sections. Sections of right colon identify preservation of mucosal architecture. Surface epithelium is intact. The subepithelial collagenous zone is subjectively of normal thickness. Intraepithelial lymphocytes are not increased. Chronic inflammatory cells are unremarkable in distribution within the lamina propria. Substantial acute inflammatory changes are absent. P[facility]/DRC 11.04.2008 01:34 pm Staging Form: No. ELECTRONIC SIGNATURE FOR DAVID LOAIZA M.D.- 11/04/08 02:03 pm INTERFACE SYSTEM 11/03/2008 1:46 PM BIODIESEL PLANT SUPERINTENDENT us Pee Ramirez MD PATHOLOGY/CYTOLOGY ORDERABLES Final Result INTERFACE SYSTEM Refer to clinic/hospital department documented in this encounter Visit Diagnoses Not on filedocumented in this encounter Care Teams Buckle Strap Puncher Relationship Specialty Start Date End Date Radha Joshi MD [address] [facility] [address] [place] [address] PCP - General 08/07/02 06/04/14 documented as of this encounter
--- OUTSIDE RECORDS SUMMARY | 2025-04-18 15:21 | XMS_ITS | Encounter Summary ---
Author Organization [facility] Address 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
--- NOTE | 2025-04-18 17:49 | ED.DIZZY ---
HPI - Dizziness General Chief Complaint: Dizziness <NATHAN Sahni Last Filed: 04/18/25 23:55> Stated Complaint: dizziness <Virginia Olmos PA-C - Last Filed: 04/18/25 23:55> Time Seen by Provider: 04/18/25 17:03 <Virginia Olmos PA-C - Last Filed: 04/18/25 23:55> Source: patient <NATHAN Sahni Last Filed: 04/18/25 23:55> Mode of arrival: ambulatory <NATHAN Sahni Last Filed: 04/18/25 23:55> Limitations: no limitations <NATHAN Sahni Last Filed: 04/18/25 23:55> History of Present Illness HPI Narrative: Patient is an 79-year-old female who presents the ED with report of dizziness. Patient is currently visiting family in the area from [facility]. Reports she has had intermittent episodes of dizziness/lightheadedness/near syncope over the past 1 month. She states she has had issues with her blood pressure being very high and very low. States she has had lows recently in which her heart rate also drops into the 40s and she developed the dizziness. She is currently on valsartan 40 mg b.i.d., carvedilol 6.25 mg b.i.d., eplerenone 25mg daily. Today at lunch with friends, she had a significant episode of dizziness. [place] as though she was about to pass out. Her blood pressure was in the 80 systolic and her heart rate was in the 40s at that time. She reported having some chest heaviness at that time. She then prompted here for evaluation. She is scheduled to return to [place] on Monday. She does feel improved currently. She denies current dizziness, lightheadedness, chest pain. Does complain of headache. <Virginia Olmos PA-C - Last Filed: 04/18/25 23:55> Related Data Allergies/Adverse Reactions: Allergies Allergy/AdvReac Type Severity Reaction Status Date / Time cephalexin Allergy Mild rash Verified 04/18/25 18:47 hydrocodone Allergy Mild Rash Verified 04/18/25 18:47 Sulfa (Sulfonamide Allergy Mild Nausea and Verified 04/18/25 18:47 Antibiotics) Vomiting <Virginia Olmos PA-C - Last Filed: 04/18/25 23:55> Review of Systems Review of Systems: All systems reviewed & are unremarkable except as noted in HPI. <Virginia Olmos PA-C - Last Filed: 04/18/25 23:55> All systems reviewed & are unremarkable except as noted in HPI and below <Virginia Olmos PA-C - Last Filed: 04/18/25 23:55> Exam Narrative: GENERAL: Elderly but well appearing, well-nourished, non-toxic, in no acute distress. HEAD: Normocephalic, atraumatic. RESPIRATORY: Airway patent, respirations nonlabored. Clear to auscultation bilaterally, no rales, rhonchi, wheezing. CARDIOVASCULAR: Regular rate and rhythm without murmurs, rubs, or gallops. Peripheral pulses intact MUSCULOSKELETAL: Moves all extremities. No gross deformities. No peripheral edema. SKIN: Warm, dry, normal color. NEURO: A&O X3. Speech clear. Cranial nerves II-XII grossly intact. Steady gait. No ataxic movements. No focal deficits. Moves all extremities equally. PSYCHIATRIC: Appropriate mood and affect. Normal interaction. <Virginia Olmos PA-C - Last Filed: 04/18/25 23:55> Course WATER FILTERER HELPER/PA Physician Supervision I agree with midlevel documentation; I performed the medical decision making component of this evaluation. <Vira Romano MD - Last Filed: 04/18/25 23:59> Vital Signs Vital signs: Vital Signs Temperature 97.9 F 04/18/25 15:14 Pulse Rate 44 L 04/18/25 15:14 Respiratory Rate 16 04/18/25 15:14 Blood Pressure 126/49 L 04/18/25 15:14 Pulse Oximetry 98 04/18/25 15:14 Temperature 97.9 F 04/18/25 15:14 Pulse Rate 45 L 04/18/25 23:45 Respiratory Rate 13 04/18/25 23:45 Blood Pressure 174/45 H 04/18/25 23:45 Pulse Oximetry 97 04/18/25 23:45 Oxygen Delivery Room Air 04/18/25 16:37 <Virginia Olmos PA-C - Last Filed: 04/18/25 23:55> Vital Signs Temperature 97.9 F 04/18/25 15:14 Pulse Rate 44 L 04/18/25 15:14 Respiratory Rate 16 04/18/25 15:14 Blood Pressure 126/49 L 04/18/25 15:14 Pulse Oximetry 98 04/18/25 15:14 Temperature 97.9 F 04/18/25 15:14 Pulse Rate 45 L 04/18/25 23:45 Respiratory Rate 13 04/18/25 23:45 Blood Pressure 174/45 H 04/18/25 23:45 Pulse Oximetry 97 04/18/25 23:45 Oxygen Delivery Room Air 04/18/25 16:37 <Vira Romano MD - Last Filed: 04/18/25 23:59> MDM - Dizziness MDM Narrative Medical decision making narrative: Patient presented to ED with dizziness, near syncope, associated with hypotension/bradycardia. Has been intermittent over the past 1 month. Vital signs are stable in the ED. Patient's blood pressure upon arrival is 126/49. Her pulse was in the 40s at that time. EKG was obtained at 3:24 p.m. showing sinus bradycardia with first-degree AV block. No significant concerning ischemic changes. By the time of my evaluation, higher hate is in the 70s and patient is essentially asymptomatic. Patient neurologically intact. In no acute distress. CT brain is negative. Orthostatic vital signs were evaluated, negative, no significant change in BP or HR Laboratory studies are fairly unremarkable. White blood cell count 10.3. Sodium 130 wound. Kidney function is stable. Mag borderline at 1.6. Given 2g IV replacement. Troponin undetectable X2. She denies any ongoing CP. BNP within normal range for age. D-dimer within normal range. Chest x-ray is clear, showing old/chronic fractures. No current back pain. TSH is slightly low. Patient does have history of thyroidectomy, is on levothyroxine 100mcg daily (takes an additional half tab once weekly). T4 nml. T3 minimally low. Patient was again later noted to be significantly bradycardic into the mid 40s to low 50s. She was feeling lightheaded, fatigued again. Repeat EKG was captured. This does appear consistent with third-degree heart block. Will discuss with Cardiology. Blood pressure is remaining stable at this time. Based on pacer pads. Discussed case with Dr. Collier, interventional cardiology, advised will consult, admit to ICU, can potentially place temporary pacemaker over the weekend if needed. Unclear when could have definitive pacemaker placed. Discussed case with Dr. Perez, pulp cooker, recommended transfer at this time given lack of capabilities for definitive pacemaker management here. Discussed care with Dr. Rivera, pulp cooker @ [facility], recommended admission to hospitalist service. Patient accepted to [facility] by Dr. Casillas. Awaiting bed placement. Patient is in agreement with plan and need for transfer. Patient received bed at [facility]. Arranging ALS transfer. Remaining stable at this time. <Virginia Olmos PA-C - Last Filed: 04/18/25 23:55> Medical Records Attestation: I reviewed the patient's medical records. <Virginia Olmos PA-C - Last Filed: 04/18/25 23:55> Lab Data Attestation: I reviewed the patient's lab results. <Virginia Olmos PA-C - Last Filed: 04/18/25 23:55> Result diagrams: 04/18/25 17:48 04/18/25 17:48 <NATHAN Sahni Last Filed: 04/18/25 23:55> Labs: Lab Results 04/18/25 04/18/25 Range/Units 17:48 20:35 WBC 10.3 H (4.5-10.0) K/mm3 RBC 4.23 (4.2-5.4) M/mm3 Hgb 13.6 (12.0-15.0) g/dL Hct 40.6 (37.0-47.0) % MCV 96.0 (80-100) fl MCH 32.2 (26-34) pg MCHC 33.5 (32-36) g/dl RDW 12.0 (11.5-14.5) % Plt Count 205 (150-375) k/mm3 MPV 10.5 H (7.4-10.4) fl Immature Gran % (Auto) 0.3 (0-0.5) % Neut % (Auto) 83.8 H (45.5-73.1) % Lymph % (Auto) 7.4 L (18.3-44.2) % [place] % (Auto) 6.5 (2.6-8.5) % Eos % (Auto) 1.5 (0-4.4) % Baso % (Auto) 0.5 (0.2-1.2) % Lymph # (Auto) 0.76 L (0.9-3.2) K/mm3 [place] # (Auto) 0.7 H (0.1-0.6) K/mm3 Eos # (Auto) 0.2 (0-0.3) K/mm3 Baso # (Auto) 0.1 (0.0-0.1) K/mm3 Abs Immat Gran (auto) 0.03 (0.00-0.031) K/mm3 Absolute Neuts (auto) 8.7 H (1.3-6.7) K/mm3 Absolute Nucleated RBC 0.000 (0.0-0.012) K/mm3 Nucleated RBC % 0.0 (0.0-0.2) % PT 13.8 (11.1-14.7) Seconds INR 1.0 APTT 25.0 (22.3-36.8) Seconds D-Dimer 0.37 (<0.48) ug/mL Sodium 131 L (137-145) mmol/L Potassium 4.3 (3.4-5.0) mmol/L Chloride 101 (98-107) mmol/L Carbon Dioxide 25 (22-30) mmol/L Anion Gap 5 (4-12) mmol/L BUN 20 H (7-17) mg/dL Creatinine 1.01 H (0.7-1.0) mg/dL Estim Creat Clear Calc 40 ml/min Estimated GFR 53 L (59 - ) Glucose 108 (65-110) mg/dL Calcium 10.1 (8.4-10.2) mg/dL Magnesium 1.6 (1.6-2.3) mg/dL Total Bilirubin 0.5 (0.2-1.3) mg/dL AST 28 (14-36) U/L ALT 20 (6-35) U/L Alkaline Phosphatase 52 (38-126) U/L Troponin I < 0.012 < 0.012 (0.000-0.034) ng/mL NT-Pro-B Natriuret Pep 235 H (19.9-100) pg/mL Total Protein 7.1 (6.3-8.2) g/dL Albumin 4.1 (3.5-5.1) g/dL TSH (Reflex) 0.250 L (0.465-4.68) uIU/mL Free T4 1.41 (0.78-2.19) ng/dL Total T3 0.80 L (0.82-1.58) NG/ML <Virginia Olmos PA-C - Last Filed: 04/18/25 23:55> Lab Results 04/18/25 04/18/25 Range/Units 17:48 20:35 WBC 10.3 H (4.5-10.0) K/mm3 RBC 4.23 (4.2-5.4) M/mm3 Hgb 13.6 (12.0-15.0) g/dL Hct 40.6 (37.0-47.0) % MCV 96.0 (80-100) fl MCH 32.2 (26-34) pg MCHC 33.5 (32-36) g/dl RDW 12.0 (11.5-14.5) % Plt Count 205 (150-375) k/mm3 MPV 10.5 H (7.4-10.4) fl Immature Gran % (Auto) 0.3 (0-0.5) % Neut % (Auto) 83.8 H (45.5-73.1) % Lymph % (Auto) 7.4 L (18.3-44.2) % [place] % (Auto) 6.5 (2.6-8.5) % Eos % (Auto) 1.5 (0-4.4) % Baso % (Auto) 0.5 (0.2-1.2) % Lymph # (Auto) 0.76 L (0.9-3.2) K/mm3 [place] # (Auto) 0.7 H (0.1-0.6) K/mm3 Eos # (Auto) 0.2 (0-0.3) K/mm3 Baso # (Auto) 0.1 (0.0-0.1) K/mm3 Abs Immat Gran (auto) 0.03 (0.00-0.031) K/mm3 Absolute Neuts (auto) 8.7 H (1.3-6.7) K/mm3 Absolute Nucleated RBC 0.000 (0.0-0.012) K/mm3 Nucleated RBC % 0.0 (0.0-0.2) % PT 13.8 (11.1-14.7) Seconds INR 1.0 APTT 25.0 (22.3-36.8) Seconds D-Dimer 0.37 (<0.48) ug/mL Sodium 131 L (137-145) mmol/L Potassium 4.3 (3.4-5.0) mmol/L Chloride 101 (98-107) mmol/L Carbon Dioxide 25 (22-30) mmol/L Anion Gap 5 (4-12) mmol/L BUN 20 H (7-17) mg/dL Creatinine 1.01 H (0.7-1.0) mg/dL Estim Creat Clear Calc 40 ml/min Estimated GFR 53 L (59 - ) Glucose 108 (65-110) mg/dL Calcium 10.1 (8.4-10.2) mg/dL Magnesium 1.6 (1.6-2.3) mg/dL Total Bilirubin 0.5 (0.2-1.3) mg/dL AST 28 (14-36) U/L ALT 20 (6-35) U/L Alkaline Phosphatase 52 (38-126) U/L Troponin I < 0.012 < 0.012 (0.000-0.034) ng/mL NT-Pro-B Natriuret Pep 235 H (19.9-100) pg/mL Total Protein 7.1 (6.3-8.2) g/dL Albumin 4.1 (3.5-5.1) g/dL TSH (Reflex) 0.250 L (0.465-4.68) uIU/mL Free T4 1.41 (0.78-2.19) ng/dL Total T3 0.80 L (0.82-1.58) NG/ML <Vira Romano MD - Last Filed: 04/18/25 23:59> Imaging Data Attestation: I personally reviewed and interpreted this imaging study as follows: <NATHAN Sahni Last Filed: 04/18/25 23:55> Radiologist's impression: ITS Impressions Head CT 04/18/25 18:00 IMPRESSION: No acute intracranial process. Chest X-Ray 04/18/25 18:29 IMPRESSION: No acute cardiopulmonary process. Mild multilevel anterior wedge deformities at the thoracolumbar junction, likely chronic, unless accompanied by history of trauma and/or pain/tenderness. Old right proximal humeral fracture. <Virginia Olmos PA-C - Last Filed: 04/18/25 23:55> ECG Data EKG #1: Attestation: I personally reviewed and interpreted this ECG as follows: <NATHAN Sahni Last Filed: 04/18/25 23:55> ECG completion date: 04/18/25 <NATHAN Sahni Last Filed: 04/18/25 23:55> ECG completion time: 15:24 <NATHAN Sahni Last Filed: 04/18/25 23:55> EKG Interpretation: bradycardia (44), sinus rhythm (First-degree AV block) and non-specific ST changes <NATHAN Sahni Last Filed: 04/18/25 23:55> Critical Care Time Critical Care Time Critical Care Time: Yes <Vira Romano MD - Last Filed: 04/18/25 23:59> Total Critical Care Time: 45 <Vira Romano MD - Last Filed: 04/18/25 23:59> Discharge Plan Discharge Clinical Impression: Third degree heart block, Symptomatic bradycardia, Low serum thyroid stimulating hormone (TSH) <NATHAN Sahni Last Filed: 04/18/25 23:55> Patient Disposition: Acute Care Hospital <NATHAN Sahni Last Filed: 04/18/25 23:55> Condition: Serious <NATHAN Sahni Last Filed: 04/18/25 23:55> Patient Language: Welsh <NATHAN Sahni Last Filed: 04/18/25 23:55> Follow-up/Referrals: PHYSICIAN NOT ON STAFF,NONSTAFF [Primary Care Provider] - <Virginia Olmos PA-C - Last Filed: 04/18/25 23:55>
[2025-04-18 17:57] LABS: Hematocrit 40.6 % (37.0-47.0); Hemoglobin 13.6 g/dL (12.0-15.0); Immature Granulocyte Percent A 0.3 % (0-0.5); Lymphocytes Absolute Auto 0.76 K/mm3 (0.9-3.2); Mean Corpuscular HGB Conc 33.5 g/dl (32-36); Mean Corpuscular Hemoglobin 32.2 pg (26-34); Mean Corpuscular Volume 96.0 fl (80-100); Nucleated Red Blood Cells Absolute Auto 0.000 K/mm3 (0.0-0.012); Nucleated Red Blood Cells Perc 0.0 % (0.0-0.2); Platelet Count Result 205 k/mm3 (150-375); Red Blood Count 4.23 M/mm3 (4.2-5.4); White Blood Count 10.3 K/mm3 (4.5-10.0)
[2025-04-18 18:12] LABS: INR 1.0; Prothrombin Time 13.8 Seconds (11.1-14.7)
[2025-04-18 18:13] LABS: Partial Thromboplastin Time 25.0 Seconds (22.3-36.8)
[2025-04-18 18:16] LABS: Alanine Aminotransferase 20 U/L (6-35); Albumin Level 4.1 g/dL (3.5-5.1); Alkaline Phosphatase 52 U/L (38-126); Anion Gap 5 mmol/L (4-12); Aspartate Amino Transferase 28 U/L (14-36); Bilirubin,Total 0.5 mg/dL (0.2-1.3); Blood Urea Nitrogen 20 mg/dL (7-17); Calcium 10.1 mg/dL (8.4-10.2); Carbon Dioxide 25 mmol/L (22-30); Chloride 101 mmol/L (98-107); Estimated CRCL calculation 40 ml/min; Estimated Glomerular Filt Rate 53; Glucose 108 mg/dL (65-110); Magnesium 1.6 mg/dL (1.6-2.3); Potassium 4.3 mmol/L (3.4-5.0); Sodium 131 mmol/L (137-145); Total Protein 7.1 g/dL (6.3-8.2)
[2025-04-18 18:26] LABS: NT Pro B Type Natriuretic Pept 235 pg/mL (19.9-100); Troponin I < 0.012 ng/mL (0.000-0.034)
--- OUTSIDE RECORDS SUMMARY | 2025-04-18 18:31 | XMS_ITS | Encounter Summary ---
Author Organization [facility] Address [address] [place] [address] Care Team Providers Care Ground Services Instructor Name Role Phone Radha Joshi MD Primary Care Provider Encounter Details Date Type Department Care Team (Late st Contact Info) Description 03/31/2006 Outpatient Historical [facility] Internal Medicine [address] [address] Radha Joshi MD [address] [facility] [address] [place] [address] Social History Tobacco Use Types Packs/Day Years Used Date Smoking Tobacco: Never Assessed Comments Unknown Sex and Gender Information Value Date Recorded Sex Assigned at Not on file Legal Sex Female 3:41 AM PEDIATRIC ASSOCIATE Gender Identity Not on file Sexual Orientation Not on file documented as of this encounter Plan of Treatment Not on file documented as of this encounter Visit Diagnoses Not on filedocumented in this encounter Care Teams Ground Services Instructor Relationship Specialty Start Date End Date Radha Joshi MD [address] [facility] [address] [place] [address] PCP - General 08/07/02 06/04/14 documented as of this encounter
--- OUTSIDE RECORDS SUMMARY | 2025-04-18 18:31 | XMS_ITS | Encounter Summary ---
Author Organization [facility] Address [address] [place] [address] Care Team Providers Care Attending Anesthesiologist Name Role Phone Radha Joshi MD Primary Care Provider [phone] Encounter Details Date Type Department Care Team (Latest Contact Info) Description 07/10/[address] [facility] Radha Joshi MD [address] [facility] [address] [place] [address] Special Screening for Osteoporosis (Primary Dx) Social History Tobacco Use Types Packs/Day Years Used Date Smoking Tobacco: Never Assessed Comments No Sex and Gender Information Value Date Recorded Sex Assigned at Not on file Legal Sex Female 3:41 AM NURSES ASSISTANT Gender Identity Not on file Sexual Orientation Not on file documented as of this encounter Plan of Treatment Not on file documented as of this encounter Visit Diagnoses Diagnosis Special screening for osteoporosis- Primary documented in this encounter Care Teams Attending Anesthesiologist Relationship Specialty Start Date End Date Radha Joshi MD [address] [facility] [address] [place] [address] PCP - General 08/07/02 06/04/14 documented as of this encounter
--- OUTSIDE RECORDS SUMMARY | 2025-04-18 18:31 | XMS_ITS | Encounter Summary ---
Author Organization [facility] Address [address] [place] [address] Care Team Providers Care Street Commissioner Name Role Phone Radha Joshi MD Primary Care Provider [phone] Encounter Details Date Type Department Care Team (Late st Contact Info) Description 07/31/2006 Outpatient Historical [facility] Internal Medicine [address] [address] Radha Joshi MD [address] [facility] [address] [place] [address] Social History Tobacco Use Types Packs/Day Years Used Date Smoking Tobacco: Never Assessed Comments Unknown Sex and Gender Information Value Date Recorded Sex Assigned at Not on file Legal Sex Female 3:41 AM ASSOCIATE MEDIA DIRECTOR Gender Identity Not on file Sexual Orientation Not on file documented as of this encounter Plan of Treatment Not on file documented as of this encounter Visit Diagnoses Not on filedocumented in this encounter Care Teams Street Commissioner Relationship Specialty Start Date End Date Radha Joshi MD [address] [facility] [address] [place] [address] PCP - General 08/07/02 06/04/14 documented as of this encounter
--- OUTSIDE RECORDS SUMMARY | 2025-04-18 18:31 | XMS_ITS | Encounter Summary ---
Author Organization [facility] Address [address] [place] [address] Care Team Providers Care Deadener Name Role Phone Radha Joshi MD Primary Care Provider [phone] Encounter Details Date Type Department Care Team (Late st Contact Info) Description 09/25/2007 Outpatient Historical [facility] Internal Medicine [address] [address] Radha Joshi MD [address] [facility] [address] [place] [address] Social History Tobacco Use Types Packs/Day Years Used Date Smoking Tobacco: Never Assessed Comments No Sex and Gender Information Value Date Recorded Sex Assigned at Not on file Legal Sex Female 3:41 AM SAMPLE COLOR MAKER Gender Identity Not on file Sexual Orientation Not on file documented as of this encounter Plan of Treatment Not on file documented as of this encounter Visit Diagnoses Not on filedocumented in this encounter Care Teams Deadener Relationship Specialty Start Date End Date Radha Joshi MD [address] [facility] [address] [place] [address] PCP - General 08/07/02 06/04/14 documented as of this encounter
--- OUTSIDE RECORDS SUMMARY | 2025-04-18 18:31 | XMS_ITS | Encounter Summary ---
Author Organization [facility] Address [address] [place] [address] Care Team Providers Care Percussion Tuner Name Role Phone Radha Joshi MD Primary Care Provider Encounter Details Date Type Department Care Team (Latest Contact Info) Description 09/20/2001 Outpatient Historical [facility] Cao, Marci Raymundo MD NO ADDRESS ON FILE GYNECOLOGIC EXAMINATION (Primary Dx) Social History Tobacco Use Types Packs/Day Years Used Date Smoking Tobacco: Never Assessed Comments Unknown Sex and Gender Information Value Date Recorded Sex Assigned at Not on file Legal Sex Female 3:41 AM SCUBA DIVE TRAINING INSTRUCTOR Gender Identity Not on file Sexual Orientation Not on file documented as of this encounter Plan of Treatment Not on file documented as of this encounter Visit Diagnoses Diagnosis Gynecological examination- Primary documented in this encounter Care Teams Percussion Tuner Relationship Specialty Start Date End Date Radha Joshi MD [address] [facility] [address] [place] [address] PCP - General 08/07/02 06/04/14 documented as of this encounter
--- OUTSIDE RECORDS SUMMARY | 2025-04-18 18:31 | XMS_ITS | Encounter Summary ---
Author Organization 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
--- OUTSIDE RECORDS SUMMARY | 2025-04-18 18:31 | XMS_ITS | Encounter Summary ---
Author Organization [facility] Address [address] [place] [address] Care Team Providers Care Information Systems Analyst Name Role Phone Radha Joshi MD Primary Care Provider [phone] Encounter Details Date Type Department Care Team (Late st Contact Info) Description 07/19/2005 Outpatient Historical [facility] 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
--- OUTSIDE RECORDS SUMMARY | 2025-04-18 18:31 | XMS_ITS | Encounter Summary ---
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
--- OUTSIDE RECORDS SUMMARY | 2025-04-18 18:31 | XMS_ITS | Clinical Summary ---
Author Organization [facility] Address [facility] [place] [address] Care Team Providers Care Adapted Physical Education Specialist Name Role Phone Unavailable Primary Care Provider [...] Comments Blood Pressure 124/70 09/19/2017 1:23 PM SHRIMPING BOAT CAPTAIN Pulse 66 09/19/2017 1:23 PM SHRIMPING BOAT CAPTAIN Temperature 36.7 C (98 F) 09/19/2017 1:23 PM SHRIMPING BOAT CAPTAIN Respiratory Rate 20 09/19/2017 1:23 PM SHRIMPING BOAT CAPTAIN Oxygen Saturation 99% 09/19/2017 1:23 PM SHRIMPING BOAT CAPTAIN Inhaled Oxygen Concentration - - Weight 79.4 kg (175 lb) 09/19/2017 1:23 PM SHRIMPING BOAT CAPTAIN Height 162.6 cm (5' 4) 09/19/2017 1:23 PM SHRIMPING BOAT CAPTAIN Body Mass Index 30.04 09/19/2017 1:23 PM SHRIMPING BOAT CAPTAIN Plan of Treatment Health Maintenance Due Date [...] patient's age to complete [place] [address]
--- OUTSIDE RECORDS SUMMARY | 2025-04-18 18:31 | XMS_ITS | Continuity of Care Document ---
Author Organization [facility] Address [address] [place] [address] Phone Care Team Providers Care Manufacturing Coordinator Name Role Phone Ollie OD, Fabio Unavailable [...] Location Reason(s) For Visit Diagnoses Date Provider [facility], [address] [address], [place], [id number], tel:[phone] [facility] vision is improved OU (chief complaint)vis ion is brighter OU (chief complaint) Senile nuclear sclerosisLens replaced by other means 2012 Ollie Fabio. [address] [place], [place], [id number], [place]. tel:[phone] [facility], [address], [place], [id number], tel:[phone] [facility] double vision has improved OD (chief complaint)no complaints OD (chief complaint)vis ion is improved OD (chief complaint) Senile nuclear sclerosisLens replaced by other means 2012 Ollie Mccarthy. [address], [place], [place], [id number], [place]. tel:[phone] [facility], [address], [place], [place], [id number], [place] tel:[phone] [facility] double vision OU (chief complaint)col ors are brighter/more vivid OD (chief complaint) Senile nuclear sclerosisLens replaced by other means 2012 Ollie Mccarthy. [address], [place], [place], [id number], [place]. tel:[phone] [facility], [address], [place], [place], [id number], [place] tel:[phone] [facility] Senile nuclear sclerosis 2012 Vinay Lipscomb. [address], [place], [id number], [place]. tel:[phone] [facility], [address], [place], [place], [id number], [place] tel:[phone] [facility] Senile nuclear sclerosis 2012 [facility]. [address], [place], [place], [id number], [place]. tel:[phone] [facility], [address], [place], [place], [id number], [place] tel:[phone] [facility] Senile nuclear sclerosis 2012 Vinay Lipscomb. [address], [place], [id number], [place]. tel:[phone] [facility], [address], [place], [place], [id number], [place] tel:[phone] [facility] Senile nuclear sclerosis 2012 Anibal Barragan. [address], [place], [place], [id number], [place]. tel:[phone] [facility], [address], [place], [place], [id number], [place] tel:[phone] [facility] vision is improved OS (chief complaint)no complaints OS (chief complaint) Lens replaced by other meansSenile nuclear sclerosis 2012 Batshevabonita Alex. [address], [place], [place], [id number], [place]. tel:[phone] [facility], [address], [place], [place], [id number], [place] tel:[phone] [facility] vision is brighter OS (chief complaint) Senile nuclear sclerosis 2012 Ollie Mccarthy. [address], [place], [place], [id number], [place]. tel:[phone] [facility], [address], [place], [place], [id number], [place] tel:[phone] [facility] Senile nuclear sclerosis 2012 Kesha Kan. [address], [place], [place], [id number], [place]. tel:[phone] [facility], [address], [place], [place], [id number], [place] tel:[phone] [facility] Senile nuclear sclerosis 2012 Cherri Blunt. [address], [place], [place], [id number], [place]. tel:[phone] [facility], [address], [place], [place], [id number], [place] tel:[phone] [facility] Senile nuclear sclerosis 2012 [facility]. [address], [place], [place], [id number], [place]. tel:[phone] [facility], [address], [place], [place], [id number], [place] tel:[phone] [facility] Senile nuclear sclerosis 2012 Cherri Blunt. [address] [place], [id number], [place]. tel:[phone] [facility], [address] [place], [id number], [place] tel:[phone] [facility] Senile nuclear sclerosisMacular puckering of retinaOther vitreous opacitiesBenign neoplasm of choroid 2012 Ollie Mccarthy. [address] [place], [id number], [place]. tel:[phone] Family History Family Member Type Diagnosis Age At Onset Problem (finding) Family history of Cance r Problem (finding) Family history of mother diagnosed myasthemia gravis ocular type Sister Problem (finding) diabetes melli tus in first degree relative Payers Payer name Insurance type Covered constitution party ID Authoriza tion(s) [place]IC[place] [id number] [employer] [id number] Social History Type Description Quantity Date Captured [...] CE with IOL OS first, [facility] Related to Senile, nuclear sclerosis (NS) Senile, [...] wishes to proceed w/ surgery. f/u at [facility] Related to Senile, nuclear sclerosis (NS) [...]
--- OUTSIDE RECORDS SUMMARY | 2025-04-18 18:31 | XMS_ITS | Encounter Summary ---
Author Organization [employer] Address 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
--- OUTSIDE RECORDS SUMMARY | 2025-04-18 18:31 | XMS_ITS | Encounter Summary ---
Author Organization [facility] Address [address] [place] [address] Care Team Providers Care Sustainability Coach Name Role Phone Radha Joshi MD Primary Care Provider Encounter Details Date Type Department Care Team (Late st Contact Info) Description 05/04/2007 Outpatient Historical [facility] Internal Medicine [address] [address] Radha Joshi MD [address] [facility] [address] [place] [address] Social History Tobacco Use Types Packs/Day Years Used Date Smoking Tobacco: Never Assessed Comments No Sex and Gender Information Value Date Recorded Sex Assigned at Not on file 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
--- OUTSIDE RECORDS SUMMARY | 2025-04-18 18:31 | XMS_ITS | Encounter Summary ---
Author Organization [facility] Address [address] [place] [address] Care Team Providers Care Binding Cutter Name Role Phone Radha Joshi MD Primary Care Provider Encounter Details Date Type Department Care Team (Late st Contact Info) Description 05/31/2004 Outpatient Historical [facility] [address] [place] [address] Woody Bryant MD NO ADDRESS ON FILE Social History Tobacco Use Types Packs/Day Years Used Date Smoking Tobacco: Never Assessed Comments Unknown Sex and Gender Information Value Date Recorded Sex Assigned at Not on file 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
--- OUTSIDE RECORDS SUMMARY | 2025-04-18 18:31 | XMS_ITS | Encounter Summary ---
Author Organization [facility] Address 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
--- OUTSIDE RECORDS SUMMARY | 2025-04-18 18:31 | XMS_ITS | Encounter Summary ---
Author Organization [facility] Address [address] [place] [address] Care Team Providers Care Skip Pitman Name Role Phone Radha Joshi MD Primary Care Provider Encounter Details Date Type Department Care Team (Late st Contact Info) Description 12/30/2003 Outpatient Historical [facility] Internal Medicine [address] [address] Radha Joshi MD [address] [facility] [address] [place] [address] Social History Tobacco Use Types Packs/Day Years Used Date Smoking Tobacco: Never Assessed Comments Unknown Sex and Gender Information Value Date Recorded Sex Assigned at Not on file 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
--- OUTSIDE RECORDS SUMMARY | 2025-04-18 18:31 | XMS_ITS | Encounter Summary ---
Author Organization [facility] Address 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
--- OUTSIDE RECORDS SUMMARY | 2025-04-18 18:31 | XMS_ITS | Encounter Summary ---
Author Organization [employer] Address 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
--- OUTSIDE RECORDS SUMMARY | 2025-04-18 18:31 | XMS_ITS | Encounter Summary ---
Author Organization [facility] Address [address] [place] [address] Care Team Providers Care Carver Hand Name Role Phone Radha Joshi MD Primary Care Provider [phone] Encounter Details Date Type Department Care Team (Late st Contact Info) Description 08/03/2007 Outpatient Historical [facility] Internal Medicine 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
--- OUTSIDE RECORDS SUMMARY | 2025-04-18 18:31 | XMS_ITS | Encounter Summary ---
Author Organization [facility] Address 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
--- OUTSIDE RECORDS SUMMARY | 2025-04-18 18:31 | XMS_ITS | Encounter Summary ---
Author Organization [facility] Address [address] [place] [address] Care Team Providers Care Supervisor Pressing Department Name Role Phone Radha Joshi MD Primary Care Provider [phone] Encounter Details Date Type Department Care Team [...] file Legal Sex Female 3:41 AM SENIOR TABLEAU DEVELOPER Gender Identity Not on file Sexual Orientation Not on file documented as of this encounter Plan of Treatment Not on file documented as of this encounter Procedures Procedure Name Priority Date/Time Associated Diagnosis Comments HEMOGLOBIN AND HEMATOCRIT Routine 10/04/2005 5:32 AM SENIOR TABLEAU DEVELOPER BASIC METABOLIC PANEL Routine 10/04/2005 5:32 AM SENIOR TABLEAU DEVELOPER documented in this encounter Results * (ABNORMAL) BASIC METABOLIC PANEL (10/04/2005 5:32 AM SENIOR TABLEAU DEVELOPER) GLUCOSE 113(H) 65 - 109 mg/dL INTERFACE [...] 30 mmol/L INTERFACE SYSTEM 10/04/2005 5:32 AM SENIOR TABLEAU DEVELOPER Marci Cao MD CHEMISTRY ORDERABLES Final Re sult Performing Organization Address [facility] de Phone Number INTERFACE SYSTEM Refer to clinic/hospital department * HEMOGLOBIN AND HEMATOCRIT (10/04/2005 5:32 AM SENIOR TABLEAU DEVELOPER) HEMOGLOBIN 13.7 11.8 - 14.8 g/dL INTERFACE SYSTEM HEMATOCRIT 40.3 35.5 - 44.0 % INTERFACE SYSTEM 10/04/2005 5:32 AM SENIOR TABLEAU DEVELOPER Marci Cao MD HEMATOLOGY ORDERABLES Final R esult Performing Organization Address [facility] Phone Number INTERFACE SYSTEM Refer to clinic/hospital department documented in this encounter Visit Diagnoses Diagnosis Uterine prolapse without mention of vaginal wall prolapse- Primary documented in this encounter Care Teams Supervisor Pressing Department Relationship Specialty Start Date End Date Radha Joshi MD [address] [address] PCP - General 08/07/02 06/04/14 documented as of this encounter
--- OUTSIDE RECORDS SUMMARY | 2025-04-18 18:31 | XMS_ITS | Encounter Summary ---
Author Organization [facility] Address 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
--- OUTSIDE RECORDS SUMMARY | 2025-04-18 18:31 | XMS_ITS | Encounter Summary ---
Author Organization [facility] Address 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
--- OUTSIDE RECORDS SUMMARY | 2025-04-18 18:31 | XMS_ITS | Encounter Summary ---
Author Organization [employer] [facility] Address 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
--- OUTSIDE RECORDS SUMMARY | 2025-04-18 18:31 | XMS_ITS | Encounter Summary ---
Author Organization [facility] Address [address] [place] [address] Care Team Providers Care Calendering Supervisor Name Role Phone Radha Joshi MD Primary Care Provider Encounter Details Date Type Department Care Team (Late st Contact Info) Description 05/30/2006 Outpatient Historical [facility] Internal Medicine [address] [address] Radha Joshi MD [address] [facility] [address] [place] [address] Social History Tobacco Use Types Packs/Day Years Used Date Smoking Tobacco: Never Assessed Comments Unknown Sex and Gender Information Value Date Recorded Sex Assigned at Not on file Legal Sex Female 3:41 AM 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
--- OUTSIDE RECORDS SUMMARY | 2025-04-18 18:31 | XMS_ITS | Encounter Summary ---
Author Organization [facility] Address [address] [place] [address] Care Team Providers Care Substitute Crossing Guard Name Role Phone Radha Joshi MD Primary Care Provider [phone] Encounter Details Date Type Department Care Team (Late st Contact Info) Description 05/17/2004 Outpatient Historical [address] [place] [address] Marci Cao MD NO ADDRESS ON FILE Social History Tobacco Use Types Packs/Day Years Used Date Smoking Tobacco: Never Assessed Comments Unknown Sex and Gender Information Value Date Recorded Sex Assigned at Not on file Legal Sex Female 3:41 AM POLICE MANAGER Gender Identity Not on file Sexual Orientation Not on file documented as of this encounter Plan of Treatment Not on file documented as of this encounter Visit Diagnoses Not on filedocumented in this encounter Care Teams Substitute Crossing Guard Relationship Specialty Start Date End Date Radha Joshi MD [address] [facility] [address] [place] [address] PCP - General 08/07/02 06/04/14 documented as of this encounter
--- OUTSIDE RECORDS SUMMARY | 2025-04-18 18:31 | XMS_ITS | Encounter Summary ---
Author Organization [facility] Address [address] [place] [address] Care Team Providers Care Tobacco Conditioner Name Role Phone Radha Joshi MD Primary Care Provider Encounter Details Date Type Department Care Team (Late st Contact Info) Description 11/21/2005 Outpatient Historical [address] [place] [address] Marci Cao MD NO ADDRESS ON FILE Social History Tobacco Use Types Packs/Day Years Used Date Smoking Tobacco: Never Assessed Comments Unknown Sex and Gender Information Value Date Recorded Sex Assigned at Not on file Legal Sex Female 3:41 AM RELOCATION COMMISSIONER Gender Identity Not on file Sexual Orientation Not on file documented as of this encounter Plan of Treatment Not on file documented as of this encounter Visit Diagnoses Not on filedocumented in this encounter Care Teams Tobacco Conditioner Relationship Specialty Start Date End Date Radha Joshi MD [address] [facility] [address] [place] [address] PCP - General 08/07/02 06/04/14 documented as of this encounter
--- OUTSIDE RECORDS SUMMARY | 2025-04-18 18:31 | XMS_ITS | Encounter Summary ---
Author Organization [facility] Address [address] [place] [address] Care Team Providers Care Tool Setter Apprentice Name Role Phone Radha Joshi MD Primary Care Provider Encounter Details Date Type Department Care Team (Late st Contact Info) Description 06/17/2005 Outpatient Historical [facility] Radha Joshi MD [address] [facility] [address] [place] [address] SKIN SENSATION DISTURB (Primary Dx) Social History Tobacco Use Types Packs/Day Years Used Date Smoking Tobacco: Never Assessed Comments Unknown Sex and Gender Information Value Date Recorded Sex Assigned at Not on file Legal Sex Female 3:41 AM SERVICE RESTORER EMERGENCY Gender Identity Not on file Sexual Orientation Not on file documented as of this encounter Plan of Treatment Not on file documented as of this encounter Visit Diagnoses Diagnosis Disturbance of skin sensation- Primary documented in this encounter Care Teams Tool Setter Apprentice Relationship Specialty Start Date End Date Radha Joshi MD [address] [facility] [address] [place] [address] PCP - General 08/07/02 06/04/14 documented as of this encounter
--- OUTSIDE RECORDS SUMMARY | 2025-04-18 18:31 | XMS_ITS | Encounter Summary ---
Author Organization [facility] Address [address] [place] [address] Care Team Providers Care Guest Room Attendant Name Role Phone Radha Joshi MD Primary Care Provider Encounter Details Date Type Department Care Team (Latest Contact Info) Description 08/15/2007 Outpatient [place] [address] [facility] [address] [place] [id number] Cough (Primary Dx) Social History Tobacco Use Types Packs/Day Years Used Date Smoking Tobacco: Never Assessed Comments No Sex and Gender Information Value Date Recorded Sex Assigned at Not on file Legal Sex Female 3:41 AM EVP STRATEGY Gender Identity Not on file Sexual Orientation Not on file documented as of this encounter Plan of Treatment Not on file documented as of this encounter Visit Diagnoses Diagnosis Cough- Primary documented in this encounter Care Teams Guest Room Attendant Relationship Specialty Start Date End Date Radha Joshi MD [address] [facility] [address] [place] [address] PCP - General 08/07/02 06/04/14 documented as of this encounter
--- OUTSIDE RECORDS SUMMARY | 2025-04-18 18:31 | XMS_ITS | Encounter Summary ---
Author Organization [facility] Address [address] [place] [address] Care Team Providers Care Scudding Inspector Name Role Phone Radha Joshi MD Primary Care Provider Encounter Details Date Type Department Care Team (Latest Contact Info) Description 06/25/2007 Outpatient Historical [facility] Radha Recinos MD [address] [facility] [address] [place] [address] Other Screening Mammogram (Primary Dx) Social History Tobacco Use Types Packs/Day Years Used Date Smoking Tobacco: Never Assessed Comments No Sex and Gender Information Value Date Recorded Sex Assigned at Not on file Legal Sex Female 3:41 AM MONOMER RECOVERY OPERATOR Gender Identity Not on file Sexual Orientation Not on file documented as of this encounter Plan of Treatment Not on file documented as of this encounter Visit Diagnoses Diagnosis Other screening mammogram- Primary documented in this encounter Care Teams Scudding Inspector Relationship Specialty Start Date End Date Radha Joshi MD [address] [facility] [address] [place] [address] PCP - General 08/07/02 06/04/14 documented as of this encounter
--- OUTSIDE RECORDS SUMMARY | 2025-04-18 18:31 | XMS_ITS | Encounter Summary ---
Author Organization [facility] Address [address] [place] [address] Care Team Providers Care Home Delivery Driver Name Role Phone Radha Joshi MD Primary Care Provider Encounter Details Date Type Department Care Team (Late st Contact Info) Description 01/19/2006 Outpatient Historical [facility] Internal Medicine [address] [address] Radha Joshi MD [address] [facility] [address] [place] [address] Social History Tobacco Use Types Packs/Day Years Used Date Smoking Tobacco: Never Assessed Comments Unknown Sex and Gender Information Value Date Recorded Sex Assigned at Not on file Legal Sex Female 3:41 AM CIRCULAR SAWYER STONE Gender Identity Not on file Sexual Orientation Not on file documented as of this encounter Plan of Treatment Not on file documented as of this encounter Visit Diagnoses Not on filedocumented in this encounter Care Teams Home Delivery Driver Relationship Specialty Start Date End Date Radha Joshi MD [address] [facility] [address] [place] [address] PCP - General 08/07/02 06/04/14 documented as of this encounter
--- OUTSIDE RECORDS SUMMARY | 2025-04-18 18:31 | XMS_ITS | Encounter Summary ---
Author Organization [facility] Address [address] [place] [address] Care Team Providers Care Hay Rake Operator Name Role Phone Radha Joshi MD Primary Care Provider Encounter Details Date Type Department Care Team (Late st Contact Info) Description 07/01/1998 Outpatient Historical [address] [place] [address] Marci Cao MD NO ADDRESS ON FILE Social History Tobacco Use Types Packs/Day Years Used Date Smoking Tobacco: Never Assessed Comments Unknown Sex and Gender Information Value Date Recorded Sex Assigned at Not on file Legal Sex Female 3:41 AM SUPERVISOR WALL MIRROR DEPARTMENT Gender Identity Not on file Sexual Orientation Not on file documented as of this encounter Plan of Treatment Not on file documented as of this encounter Visit Diagnoses Not on filedocumented in this encounter Care Teams Hay Rake Operator Relationship Specialty Start Date End Date Radha Joshi MD [address] [facility] [address] [place] [address] PCP - General 08/07/02 06/04/14 documented as of this encounter
--- OUTSIDE RECORDS SUMMARY | 2025-04-18 18:31 | XMS_ITS | Clinical Summary ---
Author Organization [facility] Address [facility] [place] [address] Care Team Providers Care Dresser Tender Name Role Phone Unavailable Primary Care Provider [...] benign Take 1 Cap by mouth daily manager intensive care. 90 Cap 1 4 Active rosuvastatin (CRESTOR) 5 mg tabletIndications:H ypercholesteremia Take 1 Tab by mouth daily at bedtime. 90 Tab 1 4 Active levothyroxine 112 mcg Oral tabletIndications:U nspecified hypothyroidism Take 1 Tab by mouth daily manager intensive care. 90 Tab 1 4 Active losartan (COZAAR) [...] on file Legal Sex Female 3:41 AM ORNAMENT STITCHER Gender Identity Not on file Sexual Orientation Not on file Occupation Industry Job Start Date Job End Date Not on file Not on file Not on file Not on file Last Filed Vital Signs Vital Sign Reading Time Taken Comments Blood Pressure 130/70 09/13/2013 12:22 PM ORNAMENT STITCHER Pulse 85 09/13/2013 11:56 AM ORNAMENT STITCHER Temperature 37.2 C (98.9 F) 09/13/2013 11:56 AM ORNAMENT STITCHER Respiratory Rate - - Oxygen Saturation 96% 09/13/2013 11:56 AM ORNAMENT STITCHER Inhaled Oxygen Concentration - - Weight 79.4 kg (175 lb) 09/13/2013 11:56 AM ORNAMENT STITCHER Height 164.1 cm (5' 4.6) 09/13/2013 11:56 AM CS T Body Mass Index 29.48 09/13/2013 11:56 AM ORNAMENT STITCHER Plan of Treatment Health Maintenance Due Date [...] Discontinued Insurance MEDICARE PART A AND B [employer] [facility] [place] [facility] Address: [facility] [address] [place] [address] Advance Directives For more information, please contact: [phone] Documents on File Type Date Recorded Patient Postdoctoral Scientist Expl anation Advance Directive POA 05/08/2012 1:10 PM
--- OUTSIDE RECORDS SUMMARY | 2025-04-18 18:31 | XMS_ITS | Encounter Summary ---
Author Organization [facility] Address [address] [place] [address] Care Team Providers Care Inbound Sales Representative Name Role Phone Radha Joshi MD Primary Care Provider [phone] Encounter Details Date Type Department Care Team (Late st Contact Info) Description 10/04/2005 Outpatient Historical [address] [place] [address] Marci Cao MD NO ADDRESS ON FILE Social History Tobacco Use Types Packs/Day Years Used Date Smoking Tobacco: Never Assessed Comments Unknown Sex and Gender Information Value Date Recorded Sex Assigned at Not on file Legal Sex Female 3:41 AM RECRUITER MANAGER Gender Identity Not on file Sexual Orientation Not on file documented as of this encounter Plan of Treatment Not on file documented as of this encounter Visit Diagnoses Not on filedocumented in this encounter Care Teams Inbound Sales Representative Relationship Specialty Start Date End Date Radha Joshi MD [address] [facility] [address] [place] [address] PCP - General 08/07/02 06/04/14 documented as of this encounter
--- OUTSIDE RECORDS SUMMARY | 2025-04-18 18:31 | XMS_ITS | Encounter Summary ---
Author Organization [facility] Address [address] [place] [address] Care Team Providers Care Photograph Editor Name Role Phone Radha Joshi MD Primary Care Provider Encounter Details Date Type Department Care Team (Late st Contact Info) Description 05/05/2006 Outpatient Historical [facility] Internal Medicine [address] [address] Radha Joshi MD [address] [facility] [address] [place] [address] Social History Tobacco Use Types Packs/Day Years Used Date Smoking Tobacco: Never Assessed Comments Unknown Sex and Gender Information Value Date Recorded Sex Assigned at Not on file Legal Sex Female 3:41 AM ROUGH RICE TENDER Gender Identity Not on file Sexual Orientation Not on file documented as of this encounter Plan of Treatment Not on file documented as of this encounter Visit Diagnoses Not on filedocumented in this encounter Care Teams Photograph Editor Relationship Specialty Start Date End Date Radha Joshi MD [address] [facility] [address] [place] [address] PCP - General 08/07/02 06/04/14 documented as of this encounter
--- OUTSIDE RECORDS SUMMARY | 2025-04-18 18:31 | XMS_ITS | Encounter Summary ---
Author Organization [facility] Address [address] [place] [address] Care Team Providers Care Vulcanizer Name Role Phone Radha Joshi MD Primary Care Provider [phone] Encounter Details Date Type Department Care Team (Late st Contact Info) Description 03/02/2006 Outpatient Historical [facility] Internal Medicine [address] [address] Radha Joshi MD [address] [facility] [address] [place] [address] Social History Tobacco Use Types Packs/Day Years Used Date Smoking Tobacco: Never Assessed Comments Unknown Sex and Gender Information Value Date Recorded Sex Assigned at Not on file Legal Sex Female 3:41 AM CHIEF OF STAFF DOCTOR Gender Identity Not on file Sexual Orientation Not on file documented as of this encounter Plan of Treatment Not on file documented as of this encounter Visit Diagnoses Not on filedocumented in this encounter Care Teams Vulcanizer Relationship Specialty Start Date End Date Radha Joshi MD [address] [facility] [address] [place] [address] PCP - General 08/07/02 06/04/14 documented as of this encounter
--- OUTSIDE RECORDS SUMMARY | 2025-04-18 18:31 | XMS_ITS | Encounter Summary ---
Author Organization [facility] Address [address] [place] [address] Care Team Providers Care Philatelic Consultant Name Role Phone Radha Joshi MD Primary Care Provider Encounter Details Date Type Department Care Team (Late st Contact Info) Description 08/24/2005 Outpatient Historical [address] [place] [address] Marci Cao MD NO ADDRESS ON FILE Social History Tobacco Use Types Packs/Day Years Used Date Smoking Tobacco: Never Assessed Comments Unknown Sex and Gender Information Value Date Recorded Sex Assigned at Not on file Legal Sex Female 3:41 AM ELECTRONICS DESIGN ENGINEER Gender Identity Not on file Sexual Orientation Not on file documented as of this encounter Plan of Treatment Not on file documented as of this encounter Visit Diagnoses Not on filedocumented in this encounter Care Teams Philatelic Consultant Relationship Specialty Start Date End Date Radha Josih MD [address] [facility] [address] [place] [address] PCP - General 08/07/02 06/04/14 documented as of this encounter
--- OUTSIDE RECORDS SUMMARY | 2025-04-18 18:31 | XMS_ITS | Encounter Summary ---
Author Organization [facility] Address [address] [facility] Attn: [place] [address] Care Team Providers Care Motorcycle Engine Assembler Name Role Phone Radha Joshi MD Primary Care Provider [phone] Encounter Details Date Type Department Care Team (Late st Contact Info) Description 12/09/1992 Outpatient Historical Marci Cao MD NO ADDRESS ON FILE Social History Tobacco Use Types Packs/Day Years Used Date Smoking Tobacco: Never Assessed Comments Unknown Sex and Gender Information Value Date Recorded Sex Assigned at Not on file Legal Sex Female 3:41 AM QUARRY PLANT CRUSHER OPERATOR Gender Identity Not on file Sexual Orientation Not on file documented as of this encounter Plan of Treatment Not on file documented as of this encounter Visit Diagnoses Not on filedocumented in this encounter Care Teams Motorcycle Engine Assembler Relationship Specialty Start Date End Date Radha Joshi MD [address] [facility] [address] [place] [address] PCP - General 08/07/02 06/04/14 documented as of this encounter
--- OUTSIDE RECORDS SUMMARY | 2025-04-18 18:31 | XMS_ITS | Encounter Summary ---
Author Organization [facility] Address [address] [place] [address] Care Team Providers Care Clinical Science Liaison Name Role Phone Radha Joshi MD Primary Care Provider Encounter Details Date Type Department Care Team (Late st Contact Info) Description 06/07/2005 Outpatient Historical [facility] Internal Medicine [address] [address] Radha Joshi MD [address] [facility] [address] [place] [address] Social History Tobacco Use Types Packs/Day Years Used Date Smoking Tobacco: Never Assessed Comments Unknown Sex and Gender Information Value Date Recorded Sex Assigned at Not on file Legal Sex Female 3:41 AM FLIGHT OPERATIONS COORDINATOR Gender Identity Not on file Sexual Orientation Not on file documented as of this encounter Plan of Treatment Not on file documented as of this encounter Visit Diagnoses Not on filedocumented in this encounter Care Teams Clinical Science Liaison Relationship Specialty Start Date End Date Radha Joshi MD [address] [facility] [address] [place] [address] PCP - General 08/07/02 06/04/14 documented as of this encounter
--- OUTSIDE RECORDS SUMMARY | 2025-04-18 18:31 | XMS_ITS | Encounter Summary ---
Author Organization [facility] Address [address] [place] [address] Care Team Providers Care Bulb Grower Name Role Phone Radha Joshi MD Primary Care Provider Encounter Details Date Type Department Care Team (Late st Contact Info) Description 08/29/2002 Outpatient Historical [facility] Internal Medicine [address] [address] Radha Joshi MD [address] [facility] [address] [place] [address] Social History Tobacco Use Types Packs/Day Years Used Date Smoking Tobacco: Never Assessed Comments Unknown Sex and Gender Information Value Date Recorded Sex Assigned at Not on file Legal Sex Female 3:41 AM TEST MAN Gender Identity Not on file Sexual Orientation Not on file documented as of this encounter Plan of Treatment Not on file documented as of this encounter Visit Diagnoses Not on filedocumented in this encounter Care Teams Bulb Grower Relationship Specialty Start Date End Date Radha Joshi MD [address] [facility] [address] [place] [address] PCP - General 08/07/02 06/04/14 documented as of this encounter
--- OUTSIDE RECORDS SUMMARY | 2025-04-18 18:31 | XMS_ITS | Encounter Summary ---
Author Organization [facility] Address [address] [facility] Attn: [place] [address] Care Team Providers Care Product Test Engineer Name Role Phone Radha Joshi MD Primary Care Provider [phone] Encounter Details Date Type Department Care Team (Late st Contact Info) Description 01/10/1994 Outpatient Historical Marci Cao MD NO ADDRESS ON FILE Social History Tobacco Use Types Packs/Day Years Used Date Smoking Tobacco: Never Assessed Comments Unknown Sex and Gender Information Value Date Recorded Sex Assigned at Not on file Legal Sex Female 3:41 AM END USER CONSULTANT Gender Identity Not on file Sexual Orientation Not on file documented as of this encounter Plan of Treatment Not on file documented as of this encounter Visit Diagnoses Not on filedocumented in this encounter Care Teams Product Test Engineer Relationship Specialty Start Date End Date Radha Joshi MD [address] [facility] [address] [place] [address] PCP - General 08/07/02 06/04/14 documented as of this encounter
--- OUTSIDE RECORDS SUMMARY | 2025-04-18 18:31 | XMS_ITS | Encounter Summary ---
Author Organization [facility] Address [address] [place] [address] Care Team Providers Care Pre Sales Systems Engineer Name Role Phone Radha Joshi MD Primary Care Provider Encounter Details Date Type Department Care Team (Late st Contact Info) Description 10/26/2005 Outpatient Historical [address] [place] [address] Marci Cao MD NO ADDRESS ON FILE Social History Tobacco Use Types Packs/Day Years Used Date Smoking Tobacco: Never Assessed Comments Unknown Sex and Gender Information Value Date Recorded Sex Assigned at Not on file Legal Sex Female 3:41 AM PODIATRY TEACHER Gender Identity Not on file Sexual Orientation Not on file documented as of this encounter Plan of Treatment Not on file documented as of this encounter Visit Diagnoses Not on filedocumented in this encounter Care Teams Pre Sales Systems Engineer Relationship Specialty Start Date End Date Radha Joshi MD [address] [facility] [address] [place] [address] PCP - General 08/07/02 06/04/14 documented as of this encounter
--- OUTSIDE RECORDS SUMMARY | 2025-04-18 18:31 | XMS_ITS | Encounter Summary ---
Author Organization [facility] Address [address] [place] [address] Care Team Providers Care Campaign Advisor Name Role Phone Radha Joshi MD Primary Care Provider Encounter Details Date Type Department Care Team (Late st Contact Info) Description 09/19/2001 Outpatient Historical [address] [place] [address] Marci Cao MD NO ADDRESS ON FILE Social History Tobacco Use Types Packs/Day Years Used Date Smoking Tobacco: Never Assessed Comments Unknown Sex and Gender Information Value Date Recorded Sex Assigned at Not on file Legal Sex Female 3:41 AM GENERAL REPAIR MECHANIC Gender Identity Not on file Sexual Orientation Not on file documented as of this encounter Plan of Treatment Not on file documented as of this encounter Visit Diagnoses Not on filedocumented in this encounter Care Teams Campaign Advisor Relationship Specialty Start Date End Date Radha Joshi MD [address] [facility] [address] [place] [address] PCP - General 08/07/02 06/04/14 documented as of this encounter
--- OUTSIDE RECORDS SUMMARY | 2025-04-18 18:31 | XMS_ITS | Encounter Summary ---
Author Organization [facility] Address [address] [facility] Attn: [place] [address] Care Team Providers Care Dental Mold Maker Name Role Phone Radha Joshi MD Primary Care Provider [phone] Encounter Details Date Type Department Care Team (Late st Contact Info) Description 10/12/1990 Outpatient Historical Marci Cao MD NO ADDRESS ON FILE Social History Tobacco Use Types Packs/Day Years Used Date Smoking Tobacco: Never Assessed Comments Unknown Sex and Gender Information Value Date Recorded Sex Assigned at Not on file Legal Sex Female 3:41 AM SET UP MACHINIST Gender Identity Not on file Sexual Orientation Not on file documented as of this encounter Plan of Treatment Not on file documented as of this encounter Visit Diagnoses Not on filedocumented in this encounter Care Teams Dental Mold Maker Relationship Specialty Start Date End Date Radha Joshi MD [address] [facility] [address] [place] [address] PCP - General 08/07/02 06/04/14 documented as of this encounter
--- OUTSIDE RECORDS SUMMARY | 2025-04-18 18:31 | XMS_ITS | Encounter Summary ---
Author Organization [facility] Address [address] [place] [address] Care Team Providers Care Mine Expert Name Role Phone Radha Joshi MD Primary Care Provider Encounter Details Date Type Department Care Team (Late st Contact Info) Description 08/15/2007 Outpatient Historical [facility] Internal Medicine [facility] and [address] [place] [address] [place] [address] [facility] [address] [place] [address] Social History Tobacco Use Types Packs/Day Years Used Date Smoking Tobacco: Never Assessed Comments No Sex and Gender Information Value Date Recorded Sex Assigned at Not on file Legal Sex Female 3:41 AM OFFC SPEC Gender Identity Not on file Sexual Orientation Not on file documented as of this encounter Plan of Treatment Not on file documented as of this encounter Visit Diagnoses Not on filedocumented in this encounter Care Teams Mine Expert Relationship Specialty Start Date End Date Radha Joshi MD [address] [facility] [address] [place] [address] PCP - General 08/07/02 06/04/14 documented as of this encounter
--- OUTSIDE RECORDS SUMMARY | 2025-04-18 18:31 | XMS_ITS | Encounter Summary ---
Author Organization [facility] Address [address] [place] [address] Care Team Providers Care Family Practitioner Name Role Phone Radha Joshi MD Primary Care Provider Encounter Details Date Type Department Care Team (Late st Contact Info) Description 01/01/2007 Outpatient Historical [facility] Internal Medicine [address] [address] Radha Joshi MD [address] [facility] [address] [place] [address] Social History Tobacco Use Types Packs/Day Years Used Date Smoking Tobacco: Never Assessed Comments No Sex and Gender Information Value Date Recorded Sex Assigned at Not on file 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
--- OUTSIDE RECORDS SUMMARY | 2025-04-18 18:31 | XMS_ITS | Encounter Summary ---
Author Organization [facility] Address 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
--- OUTSIDE RECORDS SUMMARY | 2025-04-18 18:31 | XMS_ITS | Encounter Summary ---
Author Organization [facility] Address [address] [place] [address] Care Team Providers Care Gandy Dancer Name Role Phone Radha Joshi MD Primary Care Provider Encounter Details Date Type Department Care Team (Late st Contact Info) Description 08/01/2002 Outpatient Historical [facility] Internal Medicine [address] [address] Radha Joshi MD [address] [facility] [address] [place] [address] Social History Tobacco Use Types Packs/Day Years Used Date Smoking Tobacco: Never Assessed Comments Unknown Sex and Gender Information Value Date Recorded Sex Assigned at Not on file 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
--- OUTSIDE RECORDS SUMMARY | 2025-04-18 18:31 | XMS_ITS | Encounter Summary ---
Author Organization [facility] Address 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
--- OUTSIDE RECORDS SUMMARY | 2025-04-18 18:32 | XMS_ITS | Encounter Summary ---
Author Organization [facility] Address 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
--- OUTSIDE RECORDS SUMMARY | 2025-04-18 18:32 | XMS_ITS | Encounter Summary ---
Author Organization [facility] Address [address] [place] [address] Care Team Providers Care Chemical Treatment Plant Technician Name Role Phone Radha Joshi MD Primary Care Provider Encounter Details Date Type Department Care Team (Late st Contact Info) Description 07/20/2004 Outpatient Historical [facility] Internal Medicine [address] [address] Radha Joshi MD [address] [facility] [address] [place] [address] Social History Tobacco Use Types Packs/Day Years Used Date Smoking Tobacco: Never Assessed Comments Unknown Sex and Gender Information Value Date Recorded Sex Assigned at Not on file 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
--- OUTSIDE RECORDS SUMMARY | 2025-04-18 18:32 | XMS_ITS | Encounter Summary ---
Author Organization [facility] Address [address] [place] [address] Care Team Providers Care Doctor Of Podiatric Medicine Name Role Phone Radha Joshi MD Primary Care Provider [phone] Encounter Details Date Type Department Care Team (Late st Contact Info) Description 09/26/2007 Outpatient Historical [facility] Internal Medicine [address] [address] Radha Joshi MD [address] [facility] [address] [place] [address] Social History Tobacco Use Types Packs/Day Years Used Date Smoking Tobacco: Never Assessed Comments No Sex and Gender Information Value Date Recorded Sex Assigned at Not on file Legal Sex Female 3:[address] Gender Identity Not on file Sexual Orientation Not on file documented as of this encounter Plan of Treatment Not on file documented as of this encounter Visit Diagnoses Not on filedocumented in this encounter Care Teams Doctor Of Podiatric Medicine Relationship Specialty Start Date End Date Radha Joshi MD [address] [facility] [address] [place] [address] PCP - General 08/07/02 06/04/14 documented as of this encounter
--- OUTSIDE RECORDS SUMMARY | 2025-04-18 18:32 | XMS_ITS | Encounter Summary ---
Author Organization [facility] Address [address] [place] [address] Care Team Providers Care Senior Digital Designer Name Role Phone Radha Joshi MD Primary Care Provider Reason for Visit * Reason Comments Medication Refill Encounter Details Date Type Department Care Team (Late st Contact Info) Description 01/14/2014 Refill [facility] Internal Medicine [address] [place] [address] Radha Joshi MD [address] [facility] [address] [place] [address] Social History Tobacco Use Types Packs/Day Years Used Date Smoking Tobacco: Never Smokeless Tobacco: Never Alcohol Use Standard Drinks/Week Comments Yes 0 (1 standard drink = 0.6 oz pur e alcohol) ocassionally Comments No Sex and Gender Information Value Date Recorded Sex Assigned at Not on file 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
--- OUTSIDE RECORDS SUMMARY | 2025-04-18 18:32 | XMS_ITS | Encounter Summary ---
Author Organization [facility] Address [address] [place] [address] Care Team Providers Care Signal Operator Technical Name Role Phone Radha Joshi MD Primary Care Provider Encounter Details Date Type Department Care Team (Late st Contact Info) Description 12/11/2002 Outpatient Historical [facility] Internal Medicine [facility] [address] [place] [address] [place] [address] [facility] [address] [place] [address] Social History Tobacco Use Types Packs/Day Years Used Date Smoking Tobacco: Never Assessed Comments Unknown Sex and Gender Information Value Date Recorded Sex Assigned at Not on file 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
--- OUTSIDE RECORDS SUMMARY | 2025-04-18 18:32 | XMS_ITS | Encounter Summary ---
Author Organization [facility] Address 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 [address] [place] [address] PCP - General 08/07/02 06/04/14 documented as of this encounter
--- OUTSIDE RECORDS SUMMARY | 2025-04-18 18:32 | XMS_ITS | Encounter Summary ---
Author Organization [facility] Address [address] [place] [address] Care Team Providers Care Fan Runner Name Role Phone Radha Joshi MD Primary Care Provider Encounter Details Date Type Department Care Team (Late st Contact Info) Description 02/18/2003 Outpatient Historical [facility] Internal Medicine [address] [address] Radha Joshi MD [address] [facility] [address] [place] [address] Social History Tobacco Use Types [...] on filedocumented in this encounter Care Teams Fan Runner Relationship Specialty Start Date End Date Radha Joshi MD [address] [facility] [address] [place] [address] PCP - General 08/07/02 06/04/14 documented as of this encounter
--- OUTSIDE RECORDS SUMMARY | 2025-04-18 18:32 | XMS_ITS | Clinical Summary ---
Author Organization [employer] [facility] Address [address] [place] [address] Care Team Providers Care Charity Fundraiser Name Role Phone Ambar Waddell WATER POLLUTION SCIENTIST Unavailable [phone] Sherry Kamara DO Unavailable [phone] Jennifer Sy PA-C Primary Care Provider [phone] Allergies Active Allergy Reactions Criticality Noted Date Comments Acetaminophen Nausea/Vomiting 11/25/2019 Amlodipine Swelling 10/15/2024 Atorvastatin Stomach Cramps 09/04/2014 Leg cramps High Fructose Larchwood Syrup Vomiting 03/07/2016 Hydrocodone Headache,Nausea/Vomi ting 06/09/2014 Hydrocodone-Acetaminophe n Headache High 05/02/2023 Cephalexin 05/02/2023 Lisinopril Cough,Unknown 06/09/2014 Side effect; coughing. Nifedipine Swelling 10/15/2024 Nsaids Unknown 01/08/2016 melena Sulfa Antibiotics Unknown 06/09/2014 childhood Medications leVOTHYroxine (SYNTHROID) 100 MCG Tab 04/16/2023 Active Famotidine (PEPCID OR) Take by mouth. Active furosemide (LASIX) 20 MG Tab Take 1.5 Tablets by mouth twice daily. 90 Tablet 11 11/19/2024 Active eplerenone (INSPRA) 25 MG Tab Take 1 Tablet by mouth once daily. 30 Tablet 11 11/19/2024 Active potassium chloride (KLOR-CON) 20 MEQ Pack Take 1 Packet by mouth once daily. Active carvedilol (COREG) 3.125 MG Tab Take 1 Tablet by mouth twice daily. 180 Tablet 3 01/13/2025 6 Active valsartan (DIOVAN) 80 MG Tab Take 1 Tablet by mouth twice daily for 360 days. 180 Tablet 3 01/13/2025 6 Active Active Problems Problem Noted Date Diagnosed Date Coronary artery disease invo lving venetie ira coronary artery of venetie ira heart without angina pectoris 11/18/2024 Assessment & Plan (11/18/2024 11:50 PM PST): Doing well, describes stable exercise capacity without any anginal symptoms. Recent nuclear perfusion study in May 2024 was reassuring showing fixed defect in the LV apex and anterior myocardium, no evidence of ischemia. Her focus has been on risk factor modification for secondary prevention. -Blood pressure has been on losartan and carvedilol. No changes to these medications -Goal LDL cholesterol is less than 70, she is intolerant to statins has been on Repatha, I would like her to repeat her fasting lipid panel today Resistant hypertension 10/15/2024 Assessment & Plan (11/19/2024 1:25 PM PST): Difficult to control hypertension, complicated by multiple medication allergies. She is on carvedilol 12.5 mg twice daily in addition to max dose losartan. 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 She described tenderness swelling in her breasts but with spironolactone, will trial eplerenone. Would like her to keep a log of her blood pressure, with plan to follow-up in 1 week to reevaluate her blood pressure and electrolytes. Chronic diastolic heart failure (Multi-HCC) 09/19 Assessment & Plan (11/27/2024 12:47 AM PDT): Returns today for follow-up to reevaluate her volume status after increasing her Lasix to 30 mg twice daily. Assessment & Plan (11/19/2024 1:23 PM PST): Chronic diastolic heart failure, she has been on Lasix 20 mg twice daily. Appears mildly volume up, pedal edema and mild jugular venous distention. BNP is elevated -Increase Lasix to 30 mg twice daily -Would like her to return in 1 week for repeat BMP and evaluation in clinic Nonrheumatic tricuspid valve regurgitation 10/15 Mixed hyperlipidemia 10/15/2024 Nonrheumatic aortic valve insufficiency 10/15/19 25 Encounters Date Type Department Care Team Description 01/20/2025 12:27 PM PDT - 01/20/2025 11:59 PM PDT Hospital Encounter [facility] [address] [place] [id number] Leah Stanton ARNP Chronic diastolic heart failure (Multi-HCC) [I50.32] Discharge Disposition: Home 01/20/2025 12:26 PM PDT Hospital Encounter [facility] [address] [place] [phone] Jennifer Sy PA-C Essential (primary) hypertension [I10] Discharge Disposition: Home from Last 3 Months Immunizations Immunization Administration Dates Next Due COVID-19 MRNA ([employer]) 30 MCG/0.3 ML 12/11/2020, 11/19/2020 Family History Medical History Relation Name Comments Asthma Son Allergies No FHX Eczema No FHX Relation Name Status Comments Son Alive Social History Tobacco Use Types Packs/Day Years Used Date Smoking Tobacco: Never Smokeless Tobacco: Never Tobacco Cessation:Counseling Given: Not Answered Alcohol Use Standard Drinks/Week Comments Yes 0 (1 standard drink = 0.6 oz pur e alcohol) Ocassional Comments Unknown Sex and Gender Information Value Date Recorded Sex Assigned at Female 05/03/2023 1:47 PM PDT Legal Sex Female 9:09 AM PST Gender Identity Female 05/03/2023 1:47 PM PDT Sexual Orientation Not on file Last Filed Vital Signs Vital Sign Reading Time Taken Comments Blood Pressure 136/72 01/13/2025 2:04 PM PDT Pulse 70 01/13/2025 2:04 PM PDT Temperature 36.9 C (98.5 F) 10/03/2024 4:22 PM PST Gaston aware ok with dc Respiratory Rate 18 10/03/2024 4:22 PM PST Oxygen Saturation 97% 01/13/2025 2:0 4 PM PDT Inhaled Oxygen Concentration - - Weight 81.6 kg (180 lb) 01/13/2025 2:04 PM PDT Height 163.3 cm (5' 4.3) 01/13/2025 2: 04 PM PDT Body Mass Index 30.61 01/13/2025 2:04 PM PDT Plan of Treatment Health Maintenance Due Date Last Done Comments Depression Screening 01/10/1946 Medicare Subsequent AWV [id number] 04/29/2021 04/29/2020, 11/29/2017, 03/02/2017 IMM: COVID-19 ( season) 2024 01/17/2024, 06/19/2023, 06/20/2022, Additional history exists Advance Care Planning 09/18/2024 BMI >= 30 and <40 09/18/2024 Screen for Fall Risk (>65Y) 09/18/2024 IMM: INFLUENZA (AGE > 6 MONTHS) (#1) 05/19/2025 06/09/2023, 06/20/2022, 06/18/2021, Additional history exists SCRN: FOR OSTEOPOROSIS (AGE 65-85 YEARS) 10/24/2027 10/24/2024, 01/25/2016 IMM: DTAP/TDAP/TD (4 - Td or Tdap) 01/16/2034 01/17/2024, 06/18/2021, 11/25/2019 SCRN: FOR HEPATITIS C ROUTINE (18-79 Years) Discontinued 10/26/2016 IMM: SHINGRIX Completed 06/18/2021, 02/2020, 06/19/2019, Additional history exists IMM: RSV ( patients and Patients AGE > 60 YEARS OLD) Completed 06/19/2023 IMM: Pneumococcal Vaccine Completed 2023, 06/18/2021, 09/14/2019, Additional history exists SCRN: FOR HYPERLIPIDEMIA (ADULT) Discontinued 11/26/2024 IMM: HEPATITIS A Aged Out No longer e ligible based on patient's age to complete this topic IMM: HEPATITIS B Aged Out No longer e ligible based on patient's age to complete this topic IMM: MENINGOCOCCAL ACWY Aged Out No l onger eligible based on patient's age to complete this topic IMM: RSV (AGE < 20 MONTHS) Aged Out N o longer eligible based on patient's age to complete this topic Procedures Procedure Name Priority Date/Time Associated Diagnosis Comments O BNP (B NATRIURETIC PEPTIDE) Routine 01/20/2025 12:27 PM PDT Chronic diastolic heart failure (Multi-HCC) O BASIC METABOLIC PANEL Routine 01/20/2025 12:26 PM PDT Essential (primary) hypertension O LIPID PANEL Routine 11/26/2024 11:22 AM PDT Coronary artery disease involving venetie ira coronary artery of venetie ira heart without angina pectoris O DEXA BONE DENSITY STUDY Routine 10/24/2024 2:40 PM PST Other osteoporosis without current pathological fracture from Last 3 Months or Most Recently Relevant to Health Maintenance Results * BNP (B NATRIURETIC PEPTIDE) (01/20/2025 12:27 PM PDT) BNP 29 <100 pg/mL 01/21/2025 3:28 AM PDT [facility] Blood 01/20/2025 12:2 7 PM PDT 01/20/2025 12:43 PM PDT Leah Stanton [facility] Final Res ult [facility] [address] [place] [address] [facility] [address] [place] [place] [address] * (ABNORMAL) BASIC METABOLIC PANEL (01/20/2025 12:26 PM PDT) Na 141 135 - 145 mmol/L 01/21/2025 2:28 AM PDT S Central Laboratory K 4.0 3.6 - 5.3 mmol/L 01/21/2025 2:28 AM PDT [facility] Cl 103 98 - 109 mmol/L 01/21/2025 2:28 AM PDT S [facility] Laboratory CO2 27 21 - 32 mmol/L 01/21/2025 2:28 AM PDT [facility] Anion gap w/o K 11 4 - 12 2:28 AM PDT [facility] BUN 12 8 - 24 mg/dL 01/21/2025 2:28 AM PDT [facility] Creatinine 0.61 0.6 - 1.2 mg/dL 01/21/2025 2:28 AM PDT [facility] eGFR 90 >59 mL/min/1.7 3 m2 01/21/2025 2:28 AM PDT [facility] Comment:eGFR calculated by C KD-EPI (2020) Equation Glucose 135(H) 65 - 120 mg/dL 01/21/2025 2:28 AM PDT [facility] Calcium 9.0 8.5 - 10.5 mg/dL 01/21/2025 2:28 AM PDT [facility] Blood 01/20/2025 12:2 6 PM PDT 01/20/2025 12:43 PM PDT us Jennifer Sy PA-C LABORATORY Final Res ult [facility] [address] [place] [address] [facility] [address] [place] [address] * (ABNORMAL) LIPID PANEL (11/26/2024 11:22 AM PDT) [facility] Cholesterol, Total 136 <200 mg/dL 11/27/2024 1:27 AM PDT [facility] Triglycerides 154(H) <150 mg/dL 11/27/2024 1:27 AM PDT [facility] HDL 76(H) 40 - 59 mg/dL 11/27/2024 1:27 AM PDT [facility] LDLC 29 <100 mg/dL 11/27/2024 1:27 AM PDT [facility] Comment: The reference (normal) range for the LDL cholesterol test in adults has been lowered to <100 to reflect National Cholesterol Education Program ATP III guidelines. Goal LDL Cholesterol by risk category per NCEP ATEP III Guidelines in adults: CHD and CHD risk equivalents: <100 mg/dL Multiple (2+) risk factors: <130 mg/dL Zero to one risk factor: <160 mg/dL Non HDL cholesterol 60 <130 mg/dL 11/27/2024 1:27 AM PDT [facility] Chol/HDL ratio 1.79 11/27/2024 1:27 AM PDT [facility] Trig interpretation Borderline High 150-199 11/27/2024 1:27 AM PDT [facility] Comment: High 200-499 Very High >499 Fasting Yes 11/26/2024 12:25 PM PDT [facility] Blood 11/26/2024 11:2 2 AM PDT 11/26/2024 12:21 PM PDT us Sandro Moore MD LABORATORY Final Result [facility] [address] [place] [address], [facility] [phone] [facility] [address] [place] [address] [facility] [address] [place] [address] * Dexa Bone Density Study (10/24/2024 2:40 PM PST) Anatomical Region Laterality Modality MSK Other 10/24/2024 2:30 PM PST Impressions 10/24/2024 9:08 PM PST IMPRESSION: Osteopenia based on BMD. World Health Organization criteria for BMD impression classify patients as: - Normal (T-score at or above -1.0). - Osteopenia (T-score between -1.0 and -2.5). - Osteoporosis (T-score at or below -2.5). Per the Bone Health and Osteoporosis Foundation the FRAX tool is most useful in patients with low femoral neck bone mineral density (osteopenia). FRAX is calculated per request. RECOMMENDATIONS: 1. All patients should optimize their calcium and vitamin D intake. 2. Consider FDA-approved medical therapies in postmenopausal women and men aged 50 years and older, based on the following: - A hip or vertebral (clinical or morphometric) fracture. - T-score less than or equal to -2.5 at the femoral neck or spine after appropriate evaluation to exclude secondary causes. - Low bone density (T-score between -1.0 and -2.5 at the femoral neck or spine) and a 10-year probability of a hip fracture greater than or equal to 3% or a 10-year probability of a major osteoporosis-related fracture greater than or equal to 20% based on FRAX calculation. - Clinician judgment and/or patient preferences may indicate treatment for people with 10-year fracture probabilities above or below these levels. - Further guidance on treatment can be found at the National Osteoporosis Foundation's website bonesource.org. 3. Patients with diagnosis of osteoporosis or at high risk for fracture should have regular bone mineral density tests. For patients eligible for Medicare, routine testing is allowed once every 2 years. The testing frequency can be increased to one year for patients who have rapidly progressing disease, those who are receiving or discontinuing medical therapy to restore bone mass or have additional risk factors. Electronically signed by: Bc Hunt MD 10/24/2024 09:08 PM [facility] 10/24/2024 9:08 PM PST EXAMINATION: DUAL X-RAY ABSORPTIOMETRY (DXA) FOR BONE MINERAL DENSITY. CLINICAL INDICATION: 78 years old, Female. Postmenopausal. Screening for osteoporosis. TECHNIQUE: An axial (e.g., hips, spine) and/or appendicular (e.g., radius) exam was performed, as appropriate, using [employer] densitometer. Images are obtained for bone mineral density measurement and are not obtained for diagnostic purposes. [id number] COMPARISON: None. FINDINGS: Scan quality: Good. LUMBAR SPINE (L2, L4): BMD (in g/cm*2): 1.185. T-score: -0.1. Z-score: 1.7. LEFT FEMORAL NECK: BMD (in g/cm*2): 0.728. T-score: -2.2. Z-score: -0.1. LEFT TOTAL HIP: BMD (in g/cm*2): 0.857. T-score: -1.2. Z-score: 0.8. RIGHT FEMORAL NECK: BMD (in g/cm*2): 0.738. T-score: -2.2. Z-score: 0.0. RIGHT TOTAL HIP: BMD (in g/cm*2): 0.815. T-score: -1.5. Z-score: 0.5. FRAX 10-YEAR PROBABILITY OF FRACTURE: 10-year fracture risk is performed using the [facility] [place] FRAX calculator based on patient-reported risk factors. Major osteoporotic fracture: 23.3%. Hip fracture: 6.6%. Procedure Note Bc Hunt MD - 10/24/2024 EXAMINATION: DUAL X-RAY ABSORPTIOMETRY (DXA) FOR BONE MINERAL DENSITY. CLINICAL INDICATION: 78 years old, Female. Postmenopausal. Screening for osteoporosis. TECHNIQUE: An axial (e.g., hips, spine) and/or appendicular (e.g.,radius) exam was performed, as appropriate, using [employer] densitometer. Images are obtained for bone mineral density measurement and are not obtained for diagnostic purposes. [id number] COMPARISON: None. FINDINGS: Scan quality: Good. LUMBAR SPINE (L2, L4): BMD (in g/cm*2): 1.185. T-score: -0.1. Z-score: 1.7. LEFT FEMORAL NECK: BMD (in g/cm*2): 0.728. T-score: -2.2. Z-score: -0.1. LEFT TOTAL HIP: BMD (in g/cm*2): 0.857. T-score: -1.2. Z-score: 0.8. RIGHT FEMORAL NECK: BMD (in g/cm*2): 0.738. T-score: -2.2. Z-score: 0.0. RIGHT TOTAL HIP: BMD (in g/cm*2): 0.815. T-score: -1.5. Z-score: 0.5. FRAX 10-YEAR PROBABILITY OF FRACTURE: 10-year fracture risk is performed using the [facility] [place] FRAX calculator based on patient-reported risk factors. Major osteoporotic fracture: 23.3%. Hip fracture: 6.6%. IMPRESSION: Osteopenia based on BMD. World Health Organization criteria for BMD impression classify patients as: - Normal (T-score at or above -1.0). - Osteopenia (T-score between -1.0 and -2.5). - Osteoporosis (T-score at or below -2.5). Per the Bone Health and Osteoporosis Foundation the FRAX tool is most useful in patients with low femoral neck bone mineral density (osteopenia). FRAX is calculated per request. RECOMMENDATIONS: 1. All patients should optimize their calcium and vitamin D intake. 2. Consider FDA-approved medical therapies in postmenopausal women and men aged 50 years and older, based on the following: - A hip or vertebral (clinical or morphometric) fracture. - T-score less than or equal to -2.5 at the femoral neck or spine after appropriate evaluation to exclude secondary causes. - Low bone density (T-score between -1.0 and -2.5 at the femoral neck or spine) and a 10-year probability of a hip fracture greater than or equal to 3% or a 10-year probability of a major osteoporosis-related fracture greater than or equal to 20% based on FRAX calculation. - Clinician judgment and/or patient preferences may indicate treatmentfor people with 10-year fracture probabilities above or below these levels. - Further guidance on treatment can be found at the National Osteoporosis Foundation's website bonesource.org. 3. Patients with diagnosis of osteoporosis or at high risk for fracture should have regular bone mineral density tests. For patients eligible for Medicare, routine testing is allowed once every 2 years. The testing frequency can be increased to one year for patients who have rapidly progressing disease, those who are receiving or discontinuing medical therapy to restore bone mass or have additional risk factors. Electronically signed by: cB Hunt MD 10/24/2024 09:[address] PM [facility] Rafael Benjamin MD DIAGNOSTIC RADIOLOGY Fin al Result from Last 3 Months or Most Recently Relevant to Health Maintenance Insurance [employer] PPO MEDICARE ADVANTAGE AETNA [facility] MEDICARE ADVANTAGE AETNA [facility] MEDICARE ADVANTAGE Care Teams Charity Fundraiser Relationship Specialty Start Date End Date Jennifer Sy PA-C [address] [place] [address] PCP - General Physician Legal Nurse Consultant 11/12/24 Ambar Waddell ARNP [address] [place] [address] Family Medicine 06/02/24 Sherry Kamara DO [address] [place] [address] Allergy 04/27/23
--- OUTSIDE RECORDS SUMMARY | 2025-04-18 18:32 | XMS_ITS | Encounter Summary ---
Author Organization [facility] Address 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
--- OUTSIDE RECORDS SUMMARY | 2025-04-18 18:32 | XMS_ITS | Encounter Summary ---
Author Organization [facility] Address [address] [place] [address] Care Team Providers Care Bottle Washer Name Role Phone Radha Joshi MD Primary Care Provider Reason for Visit * Reason Comments Medication Refill Encounter Details Date Type Department Care Team (Late st Contact Info) Description 05/25/2013 Refill [facility] Internal Medicine [address] [place] [address] Radha Joshi MD [address] [facility] [address] [place] [address] Social History Tobacco Use Types Packs/Day Years Used Date Smoking Tobacco: Never Smokeless Tobacco: Never Alcohol Use Standard Drinks/Week Comments Yes 0 (1 standard drink = 0.6 oz pur e alcohol) ocassionally Comments No Sex and Gender Information Value Date Recorded Sex Assigned at Not on file 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
--- OUTSIDE RECORDS SUMMARY | 2025-04-18 18:32 | XMS_ITS | Patient Health Record ---
Author Organization [facility] Address [address] [address] Care Team Providers Care Contact Lens Blocker And Cutter Name Role Phone Gila Knight Unavailable [phone] Elizabeth Ibrahim MD Unavailable Unavailable Reason For Referral No Information Medications Medication SIG (Take, Route, Frequency, Duration) Notes Start Date End Date Status Losartan Potassium 50 MG Oral Active Cyanocobalamin 1000 MCG/ML Injection Active Colestipol HCl 1 GM Oral Active Crestor 10 MG Oral Active Folic Acid 1 MG Oral Acti ve Cholecalciferol 50 MCG (1999) Oral *Pick strength-form from [email or web address] for eRX* Active Colestid 1 GM Oral Active Levothyroxine Sodium 112 MCG Oral Active Immunizations Vaccine Route Administration Date Status Comme nts COVID-19 Pfizer 30mcg/0.3 mL dose Unknown 06/18/2021 Ad ministered Influenza, seasonal, injecta ble (split), for 3 yrs and up Unknown 09/14/2019 Administered Influenza, seasonal, injecta ble (split), for 3 yrs and up Unknown 09/25/2019 Administered Influenza, seasonal, injecta ble (split), for 3 yrs and up Unknown 07/23/2020 Administered Influenza, seasonal, injecta ble (split), for 3 yrs and up Unknown 06/18/2021 Administered Pneumococcal conjugate PCV 13 Unknown 09/14/2019 Admini stered Pneumococcal polysaccharide PPV23 Unknown 06/18/2021 Ad ministered Shingrix Unknown 06/18/2021 Administered Tdap Unknown 06/18/2021 Administered Zoster Unknown 09/23/2019 Administered Problems Problem Type SNOMED Code ICD Code Onset Dates Problem Status W/U Status Risk Notes Problem Vitamin B>12< deficiency anaemia (33158113) Vitamin B12 deficiency anemia, unspecified (D51.9) 2019 Active confirmed Problem Hypothyroidism (07821375) Hypothyroidism, unspecified (E03.9) 2019 Active confirmed Problem Disorder of thyroid gland (25672730) Disorder of thyroid, unspecified (E07.9) 2018 Active confirmed Problem Vitamin D deficiency (63084180) Vitamin D deficiency, unspecified (E55.9) 2019 Active confirmed Problem Pure hypercholesterolemia (266827692) Pure hypercholesterolemia (E78.0) 2019 Active confirmed Problem Gastro-esophageal reflux disease without esophagitis (708674480) Gastro-esophageal reflux disease without esophagitis (K21.9) 2018 Active confirmed Problem Irritable bowel syndrome with diarrhea (283773556) Irritable bowel syndrome with diarrhea (K58.0) 2018 Active confirmed Problem Irritable bowel syndrome (44452010) Irritable bowel syndrome without diarrhea (K58.9) 2018 Active confirmed Problem Osteoarthritis (634753795) Unspecified osteoarthritis, unspecified site (M19.90) 2019 Active confirmed Problem Incontinence of fece s (52433169) Full incontinence of feces (R15.9) 2018 Active confirmed Problem Essential hypertension (48880566) Essential (primary) hypertension (I10) 2019 Active confirmed Problem Diverticulitis of colon (670202044) Dvtrcli of intest, part unsp, w/o perf or abscess w/o bleed (K57.92) 2018 Active confirmed Problem Bone density finding (384159647) Oth disrd of bone density and structure, unspecified site (M85.80) 2019 Active confirmed Plan Of Treatment No Information Insurance Providers Payer Name Payer Address Payer Phone Subscriber Number Group Number Insured Name Patient Relationship to Insured Coverage Start Date Coverage End Date [employer] MEDICARE PLAN PPO [address] [place] [phone] [id number] [phone] Roxana Kelly Self - patient is the insured 3 Medical (General) History Surgical History Surgery Date(Month/Year) Thyroidectomy hashimotos thyroiditis Heart stent Hysterectomy - Abdominal Knee Surgery ( Right) Para esophageal hernia repair Maribel aguilar Thoracic surgery 11/2014 Bladder surgery 2016 left wrist surgery Cholecystectomy (gallbladder removal)
--- OUTSIDE RECORDS SUMMARY | 2025-04-18 18:32 | XMS_ITS | Encounter Summary ---
Author Organization [facility] Address [address] [place] [address] Care Team Providers Care Business Management Analyst Name Role Phone Jake Gilliland MD Primary Care Provider [phone] Encounter Details Date Type Department Care Team (Late st Contact Info) Description 05/15/2014 Transcribed Orders [facility] [address] [place] [phone] Meño Pritchett MD [address] [place] [address] Social History Tobacco Use Types Packs/Day Years Used Date Smoking Tobacco: Never Assessed Comments Unknown Sex and Gender Information Value Date Recorded Sex Assigned at Female 03/01/2021 12:19 PM PDT Legal Sex Female 4:21 PM PDT Gender Identity Female 03/01/2021 12:19 PM PDT Sexual Orientation Straight 03/01/2021 12 :19 PM PDT documented as of this encounter Plan of Treatment Not on file documented as of this encounter Visit Diagnoses Not on filedocumented in this encounter Care Teams Business Management Analyst Relationship Specialty Start Date End Date Jake Gilliland MD [address] [place] [address] PCP - General Family Medicine 04/07/22 documented as of this encounter
--- OUTSIDE RECORDS SUMMARY | 2025-04-18 18:32 | XMS_ITS | Encounter Summary ---
Author Organization [facility] Address 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
--- OUTSIDE RECORDS SUMMARY | 2025-04-18 18:32 | XMS_ITS | Encounter Summary ---
Author Organization [facility] Address [address] [place] [address] Care Team Providers Care Planting Machine Operator Name Role Phone Radha Joshi MD Primary Care Provider [phone] Encounter Details Date Type Department Care Team (Late st Contact Info) Description 06/28/2004 Outpatient Historical [facility] Internal Medicine [address] [address] Radha Joshi MD [address] [facility] [address] [place] [address] Social History Tobacco Use Types Packs/Day Years Used Date Smoking Tobacco: Never Assessed Comments Unknown Sex and Gender Information Value Date Recorded Sex Assigned at Not on file Legal Sex Female 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
--- OUTSIDE RECORDS SUMMARY | 2025-04-18 18:32 | XMS_ITS | Encounter Summary ---
Author Organization [employer] [facility] Address [address] [place] [address] Care Team Providers Care News Copy Editor Name Role Phone Radha Joshi MD Primary Care Provider [phone] Encounter Details Date Type Department Care Team (Late st Contact Info) Description 03/01/2009 Outpatient Historical [facility] Er, Authorized P NO ADDRESS ON FILE Rosalio Khan MD [address] [facility] [address] [place] [id number] Marlyn Coleman MD [address] [place] [address] Unspecified, Hemorrhage of Gastrointestinal Tract Social History Tobacco Use Types Packs/Day Years Used Date Smoking Tobacco: Never Alcohol Use Standard Drinks/Week Comments No 0 (1 standard drink = 0.6 oz pur e alcohol) Comments No Sex and Gender Information Value Date Recorded Sex Assigned at Not on file Legal Sex Female 3:41 AM 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 [facility] [address] [place], [place] [address] * PATHOLOGY (03/02/2009 4:10 PM CDT) FINAL REPORT [facility] [address] [place], [place] [address] Patient: ROXANA HUBER : 1945 Procedure Date: 03/02/2009 Accession Date: 03/02/2009 Case No: [id number] Ordering Dr: REN WILDER Case types AW, BW, FW, NW and SH are performed by [facility] [place] [place], [place] SURGICAL PATHOLOGY & NON-GYNECOLOGIC CYTOPATHOLOGY REPORT [...] The slides are labeled Roxana Huber and [id number]. The biopsies from the stomach consist of [...] * C-REACTIVE PROTEIN (03/02/2009 4:50 AM CDT) [facility] CRP 0.3 0.0 - 0.8 mg/dL [facility] 03/02/2009 4:50 AM CDT 03/02/2009 5:18 AM CDT us Rosalio Khan MD CHEMISTRY ORDERABLES Final Resul t INTERFACE SYSTEM Refer to clinic/hospital department [facility] CLIA# [id number] [address] [place], [place] [address] * (ABNORMAL) CBC WITH DIFFERENTIAL (03/02/2009 4:50 AM CDT) [facility] RBC 3.97 3.90 - 4.90 M/uL [facility] MCHC 33.2 31.5 - 35.5 % [facility] MCV 86.4 82.0 - 99.0 fL [facility] PLATELETS 269 140 - 350 K/uL [facility] HEMOGLOBIN 11.4(L) 11.8 - 14.8 g/dL [facility] RDW 13.8 11.5 - 14.5 % [facility] WBC 5.1 4.0 - 9.8 K/uL [facility] MCH 28.7 27.2 - 32.6 pg [facility] MPV 10.8 9.3 - 12.4 fL [facility] HEMATOCRIT 34.3(L) 35.5 - 44.0 % [facility] RDW-STDEV 43.6 37.1 - 48.7 fL [facility] NEUTROPHILS 49 45 - 70 % [facility] MONOCYTE ABSOLUTE 0.51 0.10 - 1.30 K/uL [facility] NEUTROPHIL ABSOLUTE 2.48 1.90 - 7.00 K/uL [facility] MONOCYTES 10 3 - 13 % [facility] EOSINOPHILS 2 0 - 7 % [facility] EOSINOPHIL ABSOLUTE 0.11 0.00 - 0.70 K/uL [facility] LYMPHOCYTES 39 16 - 45 % [facility] LYMPHOCYTE ABSOLUTE 1.97 0.70 - 4.50 K/uL [facility] BASOPHILS 1 0 - 2 % [facility] BASOPHILS ABSOLUTE 0.03 0.00 - 0.20 K/uL [facility] 03/02/2009 4:50 AM CDT 03/02/2009 5:18 AM CDT Result [facility] Rosalio Khan MD HEMATOLOGY ORDERABLES Edited Performing Organization Address City/[facility] de Phone Number INTERFACE SYSTEM Refer to clinic/hospital department [facility] CLIA# [id number] [address] [place] [address] * ANTIBODY IDENTIFICATION (03/01/2009 9:25 PM CDT) ANTIBODY ID PANEL Anti-Isaacs a (Jka) Dylonaux [facility] 03/01/2009 9:25 PM CDT Result [facility] Peter Farooq MD BLOOD BANK ORDERABLES Edited Performing Organization Address City/[facility] de Phone Number INTERFACE SYSTEM Refer to clinic/hospital department [facility] CLIA# [id number] [address] [place] [address] * ANTIBODY IDENTIFICATION (03/01/2009 9:25 PM CDT) ANTIBODY ID - ELUATE Panagglutinin [facility] 03/01/2009 9:25 PM CDT Peter Farooq MD BLOOD BANK ORDERABLES Final Result Performing Organization Address City/[facility] Co de Phone Number INTERFACE SYSTEM Refer to clinic/hospital department [facility] CLIA# [id number] [address] [place] [address] * DIRECT LEONOR C3 (03/01/2009 9:25 PM CDT) DIRECT ANTIGLOBULIN C3 Negative [facility] 03/01/2009 9:25 PM CDT Peter Farooq MD BLOOD BANK ORDERABLES Final Result Performing Organization Address [facility] de Phone Number INTERFACE SYSTEM Refer to clinic/hospital department [facility] CLIA# [id number] [address] [place] [address] * DIRECT LEONOR IGG (03/01/2009 9:25 PM CDT) DIRECT ANTIGLOBULIN IGG Positive [facility] 03/01/2009 9:25 PM CDT Peter Farooq MD BLOOD BANK ORDERABLES Final Result Performing Organization Address [facility] de Phone Number INTERFACE SYSTEM Refer to clinic/hospital department [facility] CLIA# [id number] [address] [place] [address] * DIRECT LEONOR POLY (03/01/2009 9:25 PM CDT) DIRECT ANTIGLOBULIN POLY Positive [facility] 03/01/2009 9:25 PM CDT Peter Farooq MD BLOOD BANK ORDERABLES Final Result Performing Organization Address City/[facility] de Phone Number INTERFACE SYSTEM Refer to clinic/hospital department [facility] CLIA# [id number] [address] [place] [address] * TYPE AND SCREEN (03/01/2009 9:25 PM CDT) HISTORY CHECK History Checked [facility] SPECIMEN LIFE 3 days from drawdate [facility] ABO/RH TYPE O Positive [facility] ANTIBODY SCREEN Positive [facility] 03/01/2009 9:25 PM CDT us Peter Farooq MD BLOOD BANK ORDERABLES Edited INTERFACE SYSTEM Refer to clinic/hospital department [facility] CLIA# [id number] [address] [place] [address] * CBC WITH DIFFERENTIAL (03/01/2009 9:25 PM CDT) MCV 87.2 82.0 - 99.0 fL [facility] PLATELETS 302 140 - 350 K/uL [facility] HEMOGLOBIN 13.0 11.8 - 14.8 g/dL [facility] RDW 13.8 11.5 - 14.5 % [facility] WBC 8.2 4.0 - 9.8 K/uL [facility] MCH 29.1 27.2 - 32.6 pg [facility] MPV 10.9 9.3 - 12.4 fL [facility] HEMATOCRIT 38.9 35.5 - 44.0 % [facility] RDW-STDEV 43.6 37.1 - 48.7 fL [facility] RBC 4.46 3.90 - 4.90 M/uL [facility] MCHC 33.4 31.5 - 35.5 % [facility] NEUTROPHILS 63 45 - 70 % [facility] NEUTROPHIL ABSOLUTE 5.15 1.90 - 7.00 K/uL [facility] EOSINOPHILS 1 0 - 7 % [facility] EOSINOPHIL ABSOLUTE 0.10 0.00 - 0.70 K/uL [facility] LYMPHOCYTES 28 16 - 45 % [facility] LYMPHOCYTE ABSOLUTE 2.27 0.70 - 4.50 K/uL [facility] BASOPHILS 0 0 - 2 % [facility] BASOPHILS ABSOLUTE 0.02 0.00 - 0.20 K/uL [facility] MONOCYTES 8 3 - 13 % [facility] MONOCYTE ABSOLUTE 0.64 0.10 - 1.30 K/uL [facility] 03/01/2009 9:25 PM CDT 03/01/2009 9:31 PM CDT us Peter Farooq MD HEMATOLOGY ORDERABLES Edited INTERFACE SYSTEM Refer to clinic/hospital department [facility] CLIA# [id number] [address] [place], [place] [address] * (ABNORMAL) COMPREHENSIVE METABOLIC PANEL (03/01/2009 9:25 PM CDT) GLUCOSE 108(H) 65 - 99 mg/dL [facility] AST 23 12 - 32 U/L [facility] BUN 20 6 - 20 mg/dL [facility] CALCIUM 9.6 8.6 - 10.2 mg/dL [facility] ALBUMIN 4.3 3.4 - 4.8 g/dL [facility] CHLORIDE 103 96 - 108 mmol/L [facility] CREATININE 0.63 0.51 - 0.95 mg/dL [facility] ALT 19 0 - 31 U/L [facility] SODIUM 141 135 - 145 mmol/L [facility] ALKALINE PHOSPHATASE 36 35 - 104 U/L [facility] CO2 26 22 - 30 mmol/L [facility] BILIRUBIN TOTAL 0.4 0.2 - 1.0 mg/dL [facility] POTASSIUM 3.6 3.5 - 4.9 mmol/L [facility] TOTAL PROTEIN 7.5 6.3 - 8.6 g/dL [facility] GFR, >60 >=60 mL/min/1. 7 sq meter [facility] GFR >60 >=60 mL/min/1. 7 sq meter [facility] Comment: Modification of Diet in Renal Disease (MDRD) study formula. Estimated GFR rate interpretative information for both Americans and non- Americans is available on the [facility] Intranet at: [email or web address] Select: Lab Policies and Procedures Select: Reference Ranges - GFR 03/01/2009 9:25 PM CDT 03/01/2009 9:31 PM CDT Peter Farooq MD CHEMISTRY ORDERABLES E dited INTERFACE SYSTEM Refer to clinic/hospital department [facility] CLIA# [id number] [address] [place] [address] documented in this encounter Visit Diagnoses Diagnosis Hemorrhage of gastrointestinal tract, unspecified documented in this encounter Care Teams News Copy Editor Relationship Specialty Start Date End Date Radha Joshi MD [address] [facility] [address] [place] [address] PCP - General 08/07/02 06/04/14 documented as of this encounter
--- OUTSIDE RECORDS SUMMARY | 2025-04-18 18:32 | XMS_ITS | Encounter Summary ---
Author Organization [employer] Address [address] [place] [address] Care Team Providers Care Adoption Specialist Name Role Phone Radha Joshi MD Primary Care Provider Encounter Details Date Type Department Care Team (Late st Contact Info) Description 06/01/2004 Outpatient Historical [facility] Support Serv. (Adt Cardiology[facility]) [address] [place] [address] Alok Melendez MD [address] [place] [address] Social History Tobacco Use Types Packs/Day Years Used Date Smoking Tobacco: Never Assessed Comments Unknown Sex and Gender Information Value Date Recorded Sex Assigned at Not on file Legal Sex Female 3:41 AM RN CLINICAL DOCUMENTATION SPECIALIST Gender Identity Not on file Sexual Orientation Not on file documented as of this encounter Plan of Treatment Not on file documented as of this encounter Visit Diagnoses Not on filedocumented in this encounter Care Teams Adoption Specialist Relationship Specialty Start Date End Date Radha Joshi MD [address] [place] [address] PCP - General 08/07/02 06/04/14 documented as of this encounter
--- OUTSIDE RECORDS SUMMARY | 2025-04-18 18:32 | XMS_ITS | Encounter Summary ---
Author Organization [employer] Address [address] [place] [address] Care Team Providers Care Guest Relations Executive Name Role Phone Radha Joshi MD Primary Care Provider Encounter Details Date Type Department Care Team (Late st Contact Info) Description 05/31/2004 Outpatient Historical [facility] Support Serv. (Adt Cardiology-[facility]) [address] 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
--- OUTSIDE RECORDS SUMMARY | 2025-04-18 18:32 | XMS_ITS | Encounter Summary ---
Author Organization [facility] Address 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
--- OUTSIDE RECORDS SUMMARY | 2025-04-18 18:32 | XMS_ITS | Encounter Summary ---
Author Organization [facility] Address [address] [place] [address] Care Team Providers Care Principal Technical Writer Name Role Phone Radha Joshi MD Primary Care Provider Encounter Details Date Type Department Care Team (Late st Contact Info) Description 08/18/2003 Outpatient Historical [facility] Internal Medicine [address] [address] Radha Joshi MD [address] [facility] [address] [place] [address] Social History Tobacco Use Types Packs/Day Years Used Date Smoking Tobacco: Never Assessed Comments Unknown Sex and Gender Information Value Date Recorded Sex Assigned at Not on file Legal Sex Female 3:41 AM TERMINATION CLERK Gender Identity Not on file Sexual Orientation Not on file documented as of this encounter Plan of Treatment Not on file documented as of this encounter Visit Diagnoses Not on filedocumented in this encounter Care Teams Principal Technical Writer Relationship Specialty Start Date End Date Radha Joshi MD [address] [facility] [address] [place] [address] PCP - General 08/07/02 06/04/14 documented as of this encounter
--- OUTSIDE RECORDS SUMMARY | 2025-04-18 18:32 | XMS_ITS | Encounter Summary ---
Author Organization [employer] Address [address] [place] [address] Care Team Providers Care Custom Leather Products Maker Name Role Phone Radha Joshi MD Primary Care Provider Encounter Details Date Type Department Care Team (Latest Contact Info) Description 10/30/2007 Outpatient Historical [facility] Radha Joshi MD [address] [facility] [address] [address] [address] [place] [address] Other Abnormal Clinical Finding Social History Tobacco Use Types Packs/Day Years Used Date Smoking Tobacco: Never Assessed Comments No Sex and Gender Information Value Date Recorded Sex Assigned at Not on file Legal Sex Female 3:41 AM SHIFT MECHANIC Gender Identity Not on file Sexual Orientation Not on file documented as of this encounter Plan of Treatment Not on file documented as of this encounter Procedures Procedure Name Priority Date/Time Associated Diagnosis Comments TSH Routine 10/30/2007 2:41 PM SHIFT MECHANIC T4 FREE Routine 10/30/2007 2:41 PM SHIFT MECHANIC LIPID PANEL Routine 10/30/2007 2:41 PM SHIFT MECHANIC COMPREHENSIVE METABOLIC PANEL Routine 10/30/2007 2:41 PM SHIFT MECHANIC documented in this encounter Results * (ABNORMAL) TSH (10/30/2007 2:41 PM SHIFT MECHANIC) TSH <0.02(L) 0.27 - 4.20 uU/mL [facility] Blood specimen (specimen) 10/30/2007 2:41 PM SHIFT MECHANIC 10/30/2007 2:41 PM SHIFT MECHANIC us Radha Joshi MD CHEMISTRY ORDERABLES Final Res ult Performing Organization Address City/[facility]/ZIP Co de Phone Number [facility] [address] [place] [address] * T4 FREE (10/30/2007 2:41 PM SHIFT MECHANIC) T4 FREE 1.4 0.9 - 1.7 ng/dL [facility] Blood specimen (specimen) 10/30/2007 2:41 PM SHIFT MECHANIC 10/30/2007 2:41 PM SHIFT MECHANIC Radha Joshi MD CHEMISTRY ORDERABLES Final Res ult Performing Organization Address City/[facility]/ZIP Co de Phone Number [facility] [address] [place], [place] [address] * (ABNORMAL) LIPID PANEL (10/30/2007 2:41 PM SHIFT MECHANIC) TRIGLYCERIDE 116 10 - 149 mg/dL [facility] CHOL/HDL RATIO 2.3 2.0 - 5.0 N [facility] HDL 76(H) 40 - 59 mg/dL [facility] CHOLESTEROL 172 100 - 199 mg/dL [facility] LDL CALCULATED 73 <=99 mg/dL [facility] LIPID PANEL COMMENT See Below N [facility] Comment: The adult ATP and pediatric NCEP classifications for lipids are available on the [facility] Intranet at: [email or web address] Select: Lab Policies and Procedures,Current Select: Lipid Panel Interpretation Blood specimen (specimen) 10/30/2007 2:41 PM SHIFT MECHANIC 10/30/2007 2:41 PM SHIFT MECHANIC us Radha Joshi MD CHEMISTRY ORDERABLES Edited [facility] [address] [place] [address] * COMPREHENSIVE METABOLIC PANEL (10/30/2007 2:41 PM SHIFT MECHANIC) CREATININE 0.57 0.51 - 0.95 mg/dL [facility] SODIUM 141 135 - 145 mmol/L [facility] ALT 21 0 - 31 U/L [facility] ALKALINE PHOSPHATASE 37 35 - 104 U/L [facility] BILIRUBIN TOTAL 0.4 0.2 - 1.0 mg/dL [facility] CO2 28 22 - 30 mmol/L [facility] TOTAL PROTEIN 7.2 6.3 - 8.6 g/dL [facility] POTASSIUM 3.7 3.5 - 4.9 mmol/L [facility] GLUCOSE 96 65 - 99 mg/dL [facility] AST 26 12 - 32 U/L [facility] BUN 10 6 - 20 mg/dL [facility] CALCIUM 9.0 8.4 - 10.2 mg/dL [facility] CHLORIDE 102 96 - 108 mmol/L [facility] ALBUMIN 4.2 3.4 - 4.8 g/dL [facility] GFR, >60 >=60 mL/min/1.7 sq meter [facility] GFR >60 >=60 mL/min/1.7 sq meter [facility] Comment: Estimated GFR rate interpretative information for both Americans and non- Americans is available on the [facility] Intranet at: [email or web address] Select: Lab Policies and Procedures Select: Reference Ranges - GFR Blood specimen (specimen) 10/30/2007 2:41 PM SHIFT MECHANIC 10/30/2007 2:41 PM SHIFT MECHANIC us Radha Joshi MD CHEMISTRY ORDERABLES Edited [facility] [address] [place] [address] documented in this encounter Visit Diagnoses Diagnosis Other abnormal clinical finding documented in this encounter Care Teams Custom Leather Products Maker Relationship Specialty Start Date End Date Radha Joshi MD [address] [facility] [address] [place] [address] PCP - General 08/07/02 06/04/14 documented as of this encounter
--- OUTSIDE RECORDS SUMMARY | 2025-04-18 18:32 | XMS_ITS | Encounter Summary ---
Author Organization [facility] Address [address] [place] [address] Care Team Providers Care Personal Attendant Name Role Phone Radha Brennan MD Primary Care Provider [phone] Encounter Details Date Type Department Care Team (Late st Contact Info) Description 02/23/2009 Outpatient Historical [facility] Radha Recinos MD [address] [place] [address] Cough Social History Tobacco Use Types Packs/Day Years Used Date Smoking Tobacco: Never Alcohol Use Standard Drinks/Week Comments No 0 (1 standard drink = 0.6 oz pur e alcohol) Comments No Sex and Gender Information Value Date Recorded Sex Assigned at Not on file Legal Sex Female 3:41 AM EMERGENCY SERVICES DISPATCHER Gender Identity Not on file Sexual Orientation [...] AM CDT Narrative 02/23/2009 11:39 AM CDT [address] [address] Admit Date: 02/23/2009 ROXANA HUBER Sex: F Admit Prov: RADHA BRENNAN Date: 1945 Primary Care Prov: RADHA BRENNAN CMRN: [id number] [id number] IMAGING SERVICES Ordering Prov: N/A Accession Number: [id number] Interpretation PA and lateral chest x-ray. History: [...] Procedure Note Alberta Hoffmann MD - 02/23/[address] [address] Admit Date: 02/23/2009 ROXANA HUBER Sex: F Admit Prov: RADHA BRENNAN Date: 1945 Primary Care Prov: RADHA BRENNAN CMRN: [id number] [facility] [id number] IMAGING SERVICES Ordering Prov: N/A Interpretation PA [...] Cough documented in this encounter Care Teams Personal Attendant Relationship Specialty Start Date End Date Radha Brennan MD [address] [facility] [address] [place] [address] PCP - General 08/07/02 06/04/14 documented as of this encounter
--- OUTSIDE RECORDS SUMMARY | 2025-04-18 18:32 | XMS_ITS | Encounter Summary ---
Author Organization [facility] Address [address] [place] [address] Care Team Providers Care Mechanical Energy Engineer Name Role Phone Radha Joshi MD Primary Care Provider Encounter Details Date Type Department Care Team (Late st Contact Info) Description 10/30/2007 Outpatient Historical [facility] Internal Medicine [address] [address] Radha Joshi MD [address] [facility] [address] [place] [address] Social History Tobacco Use Types Packs/Day Years Used Date Smoking Tobacco: Never Assessed Comments No Sex and Gender Information Value Date Recorded Sex Assigned at Not on file Legal Sex Female 3: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
--- OUTSIDE RECORDS SUMMARY | 2025-04-18 18:32 | XMS_ITS | Encounter Summary ---
Author Organization [facility] Address [address] [place] [address] Care Team Providers Care Credit Operations Specialist Name Role Phone Jake Gilliland MD Primary Care Provider [phone] Reason for Visit * Reason Onset Date Comments Procedure 12/08/2022 Encounter Details Date Type Department Care Team (Late st Contact Info) Description 12/08/2022 Telephone [facility] CARDIOLOGY [address] [phone] Sandro Moore MD [address] [address] Procedure Social History Tobacco Use Types Packs/Day Years Used Date Smoking Tobacco: Never Smokeless Tobacco: Never Alcohol Use Standard Drinks/Week Comments Not Currently 0 (1 standard drink = 0.6 oz pur e alcohol) On [facility] PHQ-2 Answer Date Recorded PHQ-2 Total Score 0 07/06/2021 Exercise Vital Sign Answer Date Recorde d On average, how many days pe r week do you engage in moderate to strenuous exercise (like a brisk walk)? 5 days Minutes of Exercise per Session Not on file 04/29/2020 Vaping Answer Date Recorded Vaping Use Status Never user 11/09/2019 Comments No Sex and Gender Information Value Date Recorded Sex Assigned at Female 03/01/2021 12:19 PM PDT Legal Sex Female 4:21 PM PDT Gender Identity Female 03/01/2021 12:19 PM PDT Sexual Orientation Straight 03/01/2021 12 :19 PM PDT documented as of this encounter Miscellaneous Notes * Telephone Encounter - Dorcas Pandya CMA - 12/23/2022 2:09 PM PDT Lvm for Janessa to call with her surgeons information ( name and facility). Let patient know that we do need an order from her surgeon to preform the EKG. * Telephone Encounter - Felicity Hamilton - 12/23/2022 1:22 PM PDT Pt calling to check on status of previous message regarding testing prior to her procedure. She needs to have an EKG done per the surgeon doing he procedure. Please reach out to get pt scheduled as her procedure is scheduled for 01/18. * Telephone Encounter - Suri Moreno - 12/08/2022 11:01 AM PDT Pt called is having an upcoming surgical procedure and is needing some cardiac testing to clear forsurgery. Surgery is scheduled 01/18/2023 and she would need to have tests done prior. Please reach out. documented in this encounter Plan of Treatment Not on file documented as of this encounter Visit Diagnoses Not on filedocumented in this encounter Additional Health Concerns Assessment Noted Time A fall risk assessment has been complete d for the patient 04/29/2020 10:21 AM PDT PHQ-2 Depression Total Score: 0 07/06/20 21 12:02 PM PDT documented as of this encounter Care Teams Credit Operations Specialist Relationship Specialty Start Date End Date Jake Gilliland MD [address] [place] [address] PCP - General Family Medicine 04/07/22 documented as of this encounter
--- OUTSIDE RECORDS SUMMARY | 2025-04-18 18:32 | XMS_ITS | Encounter Summary ---
Author Organization [facility] Address 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
--- OUTSIDE RECORDS SUMMARY | 2025-04-18 18:32 | XMS_ITS | Encounter Summary ---
Author Organization [employer] Address [address] [place] [address] Care Team Providers Care Assistant Infant Toddler Teacher Name Role Phone Radha Joshi MD Primary Care Provider [phone] Encounter Details Date Type Department Care Team (Latest Contact Info) Description 05/31/2004 Inpatient Historical HIS PATIENT IN A BED Juan David Wilson MD [address] [address] Rosalio Khan MD [address] [facility] [facility] [address] [place] [address] CHEST PAIN NOS (Primary Dx) Social History Tobacco Use Types Packs/Day Years Used Date Smoking Tobacco: Never Assessed Comments Unknown Sex and Gender Information Value Date Recorded Sex Assigned at Not on file 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
--- OUTSIDE RECORDS SUMMARY | 2025-04-18 18:32 | XMS_ITS | Encounter Summary ---
Author Organization [facility] Address [address] [place] [address] Care Team Providers Care Corn Sheller Operator Name Role Phone Radha Joshi MD Primary Care Provider Reason for Visit * Reason Comments Medication Refill Encounter Details Date Type Department Care Team (Late st Contact Info) Description 03/09/[address] 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
--- OUTSIDE RECORDS SUMMARY | 2025-04-18 18:32 | XMS_ITS | Encounter Summary ---
Author Organization [facility] Address [address] [place] [address] Care Team Providers Care Tool Crib Clerk Name Role Phone Jake Gilliland MD Primary Care Provider [phone] Reason for Visit * Reason Comments Medication Refill Encounter Details Date Type Department Care Team (Late st Contact Info) Description 11/13/2018 Refill [facility] [place] [phone] Elizabeth Ibrahim MD [address] [place], [place] [phone] Medication Refill Social History Tobacco Use Types Packs/Day Years Used Date Smoking Tobacco: Never Smokeless Tobacco: Never Alcohol Use Standard Drinks/Week Comments Yes 0 (1 standard drink = 0.6 oz pure alcohol) Reports 2-4 glasses alcohol per month Comments No Sex and Gender Information Value Date Recorded Sex Assigned at Female 03/01/2021 12:19 PM PDT Legal Sex Female 4:21 PM PDT Gender Identity Female 03/01/2021 12:19 PM PDT Sexual Orientation Straight 03/01/2021 12 :19 PM PDT documented as of this encounter Miscellaneous Notes * Telephone Encounter - Alida Delatorre LPN - 11/15/2018 10:29 AM PST Images from the original note were not included. REFILL REQUEST processed per clinic refill protocol. NOTE/Question to Provider: Thyroid Hormones Protocol Failed11/13 9:57 Normal TSH in past 12 months - ORDERS PENDED if due per [facility] fail protocol? YES INFORMATION FOR PROVIDER REFILLS: MA verified refill due, no dose discrepancy & pharmacy is correct: YES ?? Request received: direct from pharmacy ?? Last office visit in this clinic: 10/17/18 ?? Last office visit for this medication/associated problem: 11/29/17 mcwv ?? Next visit with a provider in this clinic: 12/12/18 ?? Is follow-up OVERDUE per office visit note?: YES ?? Letter pended per protocol, to be sent on encounter close: ?? CONTROLLED MEDICATIONS ONLY: ?? Date last refilled: ?? Date treatment agreement last signed: ?? Follow-up interval required per agreement: ?? Follow-up for this medication/associated problem scheduled on: PDMP report pulled & top 5 lines including patient name copied at bottom Refill requested for: Requested Prescriptions Pending Prescriptions Disp Refills ??? levothyroxine (SYNTHROID) 112 mcg tablet [Pharmacy Med Name: LEVOTHYROXINE 112 MCG TABLET] 75 tablet 3 Sig: take 1 tablet by mouth FIVE DAYS A WEEK AND 1/2 TABLET ON THE 6TH DAY AND NONE ON THE 7TH DAY ??? metoprolol tartrate (LOPRESSOR) 25 mg tablet [Pharmacy Med Name: METOPROLOL TARTRATE 25 MG TAB]180 tablet 3 Sig: take 1 tablet by mouth twice a day Vitals (Last 4 Readings): Vitals with Comments 09/21/2017 11/29/2017 03/07/2018 10/17/2018 SYSTOLIC 140 140 132 182 DIASTOLIC 70 78 80 80 Pulse 63 56 62 65 Temp 97 98.1 97.6 97 Temp Comments - - - - Resp - - 18 18 Weight 179 lbs 176 lbs 172 lbs 11 oz 171 lbs 2 oz Height 5' 4 5' 4 5' 4 5' 4 SPO2 97 98 98 98 BMI 30.8 kg/m2 30.3 kg/m2 29.7 kg/m2 29.4 kg/m2 LABS: BMP Lab Results Component Value Date CREA 0.80 06/08/2017 BUN 15 06/08/2017 NA 140 06/08/2017 K 3.6 06/08/2017 CL 102 06/08/2017 CO2 31 (H) 06/08/2017 eGRF Lab Results Component Value Date EGFR >60 06/08/2017 Liver enzymes Lab Results Component Value Date AST 23 02/17/2017 ALT 21 02/17/2017 TSH Lab Results Component Value Date TSH 1.61 06/08/2017 A1C No results found for: HBA1C, [id number] Health Maintenance Due Topic Date Due ??? Vaccine: Dtap/Tdap/Td (1 - Tdap) 12/14/1964 ??? Vaccine: Zoster (2 of 3) 09/30/2014 ??? BREAST CANCER SCREENING (MAMM YEARLY) 08/21/2018 ??? Colorectal Cancer Screening (Colonoscopy) 11/03/2018 ??? Adult Annual Wellness Visit 11/29/2018 Alida Delatorre 11/15/2018 10:29 documented in this encounter Plan of Treatment Scheduled Orders Name Type Priority Associated Diagnoses Orde r Schedule TSH, Reflex Free T4 Lab Routine Hypothyroidism, unspecified type 1 Occurrences starting 11/15/2018 until 11/15/2019 documented as of this encounter Visit Diagnoses Diagnosis Hypothyroidism, unspecified type- Primary documented in this encounter Additional Health Concerns Assessment Noted Time A fall risk assessment has been complete d for the patient 11/29/2017 10:00 AM PDT PHQ-2 Depression Total Score: 0 11/30/19 18 10:00 AM PDT documented as of this encounter Care Teams Tool Crib Clerk Relationship Specialty Start Date End Date Jake Gilliland MD [address] [place] [address] PCP - General Family Medicine 04/07/22 documented as of this encounter
--- OUTSIDE RECORDS SUMMARY | 2025-04-18 18:32 | XMS_ITS | Encounter Summary ---
Author Organization [employer] Address [address] [place] [address] Care Team Providers Care Deli Worker Name Role Phone Radha Joshi MD Primary Care Provider [phone] Encounter Details Date Type Department Care Team (Latest Contact Info) Description 04/15/2003 Outpatient Historical [facility] Ruel Arana MD CARPAL TUNNEL SYNDROME (Primary Dx) Social History Tobacco Use Types Packs/Day Years Used Date Smoking Tobacco: Never Assessed Comments Unknown Sex and Gender Information Value Date Recorded Sex Assigned at Not on file Legal Sex Female 3:41 AM DIRECTOR OF ACCREDITATION Gender Identity Not on file Sexual Orientation Not on file documented as of this encounter Plan of Treatment Not on file documented as of this encounter Visit Diagnoses Diagnosis Carpal tunnel syndrome- Primary documented in this encounter Care Teams Deli Worker Relationship Specialty Start Date End Date Radha Joshi MD [address] [facility] [address] [place] [address] PCP - General 08/07/02 06/04/14 documented as of this encounter
--- OUTSIDE RECORDS SUMMARY | 2025-04-18 18:32 | XMS_ITS | Encounter Summary ---
Author Organization [facility] Address [address] [place] [address] Care Team Providers Care Electronic Equipment Trades Worker Name Role Phone Radha Joshi MD Primary Care Provider Encounter Details Date Type Department Care Team (Late st Contact Info) Description 11/22/[address] 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
--- OUTSIDE RECORDS SUMMARY | 2025-04-18 18:32 | XMS_ITS | Encounter Summary ---
Author Organization [employer] Address [address] [place] [address] Care Team Providers Care Seed Cleaning Machine Operator Name Role Phone Radha Joshi MD Primary Care Provider Encounter Details Date Type Department Care Team (Late st Contact Info) Description 12/31/2002 Outpatient Historical [facility] ([facility]t Cardiology[facility]) [address] 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
--- OUTSIDE RECORDS SUMMARY | 2025-04-18 18:32 | XMS_ITS | Encounter Summary ---
Author Organization [facility] Address [address] [place] [address] Care Team Providers Care Career Services Director Name Role Phone Radha Joshi MD Primary Care Provider Encounter Details Date Type Department Care Team (Late st Contact Info) Description 06/13/2003 Outpatient Historical [facility] Internal Medicine [address] [address] Radha Joshi MD [address] [facility] [address] [place] [address] Social History Tobacco Use Types Packs/Day Years Used Date Smoking Tobacco: Never Assessed Comments Unknown Sex and Gender Information Value Date Recorded Sex Assigned at Not on file Legal Sex Female 3:41 AM RESPIRATORY THERAPY MANAGER Gender Identity Not on file Sexual Orientation Not on file documented as of this encounter Plan of Treatment Not on file documented as of this encounter Visit Diagnoses Not on filedocumented in this encounter Care Teams Career Services Director Relationship Specialty Start Date End Date Radha Joshi MD [address] [facility] [address] [place] [address] PCP - General 08/07/02 06/04/14 documented as of this encounter
--- OUTSIDE RECORDS SUMMARY | 2025-04-18 18:32 | XMS_ITS | Encounter Summary ---
Author Organization [facility] Address [address] [place] [address] Care Team Providers Care Goat Farmer Name Role Phone Radha Joshi MD Primary Care Provider Encounter Details Date Type Department Care Team (Late st Contact Info) Description 12/06/2002 Outpatient Historical [facility] Internal Medicine [address] [address] Radha Joshi MD [address] [facility] [address] [place] [address] Social History Tobacco Use Types Packs/Day Years Used Date Smoking Tobacco: Never Assessed Comments Unknown Sex and Gender Information Value Date Recorded Sex Assigned at Not on file Legal Sex Female 3:41 AM WASHING TUB OPERATOR Gender Identity Not on file Sexual Orientation Not on file documented as of this encounter Plan of Treatment Not on file documented as of this encounter Visit Diagnoses Not on filedocumented in this encounter Care Teams Goat Farmer Relationship Specialty Start Date End Date Radha Joshi MD [address] [facility] [address] [place] [address] PCP - General 08/07/02 06/04/14 documented as of this encounter
--- OUTSIDE RECORDS SUMMARY | 2025-04-18 18:32 | XMS_ITS | Encounter Summary ---
Author Organization [facility] Address [address] [place] [address] Care Team Providers Care Corporate General Manager Name Role Phone Radha Joshi MD Primary Care Provider [phone] Encounter Details Date Type Department Care Team [...] on file Legal Sex Female 3:41 AM HATCHERY MAN Gender Identity Not on file Sexual Orientation Not on file documented as of this encounter Plan of Treatment Not on file documented as of this encounter Procedures Procedure Name Priority Date/Time Associated Diagnosis Comments PATHOLOGY Routine 11/03/2008 1:46 PM HATCHERY MAN documented in this encounter Results * PATHOLOGY (11/03/2008 1:46 PM HATCHERY MAN) FINAL REPORT [place] [address] [place], [place] [address] Patient: ROXANA HUBER : 1945 Procedure Date: 11/03/2008 Accession Date: 11/03/2008 Case No: [id number] Ordering Dr: HILARIO RAMIREZ Case types AW, BW, FW, NW and SH are performed by [facility] [place] [place], [place] SURGICAL PATHOLOGY & NON-GYNECOLOGIC CYTOPATHOLOGY REPORT [...] 02:03 pm INTERFACE SYSTEM 11/03/2008 1:46 PM HATCHERY MAN us Pee Ramirez MD PATHOLOGY/CYTOLOGY ORDERABLES Final Result INTERFACE SYSTEM Refer to clinic/hospital department documented in this encounter Visit Diagnoses Not on filedocumented in this encounter Care Teams Corporate General Manager Relationship Specialty Start Date End Date aRdha Joshi MD [address] [facility] [address] [place] [address] PCP - General 08/07/02 06/04/14 documented as of this encounter
--- OUTSIDE RECORDS SUMMARY | 2025-04-18 18:32 | XMS_ITS | Encounter Summary ---
Author Organization [facility] Address [address] [place] [address] Care Team Providers Care Tailor Men'S Ready To Wear Name Role Phone Radha Joshi MD Primary Care Provider Encounter Details Date Type Department Care Team (Late st Contact Info) Description 09/27/2002 Outpatient Historical [facility] Internal Medicine [address] [address] Radha Joshi MD [address] [facility] [address] [place] [address] Social History Tobacco Use Types Packs/Day Years Used Date Smoking Tobacco: Never Assessed Comments Unknown Sex and Gender Information Value Date Recorded Sex Assigned at Not on file Legal Sex Female 3:[address] PRODUCTION MANAGER Gender Identity Not on file Sexual Orientation Not on file documented as of this encounter Plan of Treatment Not on file documented as of this encounter Visit Diagnoses Not on filedocumented in this encounter Care Teams Tailor Men'S Ready To Wear Relationship Specialty Start Date End Date Radha Joshi MD [address] [facility] [address] [place] [address] PCP - General 08/07/02 06/04/14 documented as of this encounter
--- OUTSIDE RECORDS SUMMARY | 2025-04-18 18:32 | XMS_ITS | Encounter Summary ---
Author Organization [facility] Address [address] [place] [address] Care Team Providers Care Coat Examiner Name Role Phone Radha Joshi MD Primary Care Provider Encounter Details Date Type Department Care Team (Late st Contact Info) Description 11/01/2007 Outpatient Historical [facility] Internal Medicine [address] [address] Radha Joshi MD [address] [facility] [address] [place] [address] Social History Tobacco Use Types Packs/Day Years Used Date Smoking Tobacco: Never Assessed Comments No Sex and Gender Information Value Date Recorded Sex Assigned at Not on file Legal Sex Female 3:41 AM FINGER BUFF SEWER Gender Identity Not on file Sexual Orientation Not on file documented as of this encounter Plan of Treatment Not on file documented as of this encounter Visit Diagnoses Not on filedocumented in this encounter Care Teams Coat Examiner Relationship Specialty Start Date End Date Radha Joshi MD [address] [facility] [address] [place] [address] PCP - General 08/07/02 06/04/14 documented as of this encounter
--- OUTSIDE RECORDS SUMMARY | 2025-04-18 18:32 | XMS_ITS | Encounter Summary ---
Author Organization [facility] Address [address] [place] [address] Care Team Providers Care Call Center Director Name Role Phone Radha Joshi MD Primary Care Provider Encounter Details Date Type Department Care Team (Late st Contact Info) Description 03/06/2003 Outpatient Historical [address] [place] [id number] Marci Cao MD NO ADDRESS ON FILE Social History Tobacco Use Types Packs/Day Years Used Date Smoking Tobacco: Never Assessed Comments Unknown Sex and Gender Information Value Date Recorded Sex Assigned at Not on file Legal Sex Female 3:41 AM INBOUND SALES ADVISOR Gender Identity Not on file Sexual Orientation Not on file documented as of this encounter Plan of Treatment Not on file documented as of this encounter Visit Diagnoses Not on filedocumented in this encounter Care Teams Call Center Director Relationship Specialty Start Date End Date Radha Joshi MD [address] [facility] [address] [place] [phone] PCP - General 08/07/02 06/04/14 documented as of this encounter
--- OUTSIDE RECORDS SUMMARY | 2025-04-18 18:32 | XMS_ITS | Encounter Summary ---
Author Organization [facility] Address [address] [place] [address] Care Team Providers Care Roll Contour Grinder Name Role Phone Radha Joshi MD Primary Care Provider Encounter Details Date Type Department Care Team (Late st Contact Info) Description 06/01/2004 Outpatient Historical [facility] [address] [place] [address] Juan David Wilson MD [facility] [address] [address] Social History Tobacco Use Types Packs/Day Years Used Date Smoking Tobacco: Never Assessed Comments Unknown Sex and Gender Information Value Date Recorded Sex Assigned at Not on file 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
[2025-04-18 18:41] LABS: Thyroid Stimulating Hormone Reflex 0.250 uIU/mL (0.465-4.68)
[2025-04-18] MEDS: MAGNESIUM SULF 2 GM/WATER 50ML 2 GM/50 ML BAG IVPB (18:51)
--- NOTE | 2025-04-18 19:14 | PC.NURSE ---
Report received from SOLEDAD Cabrera. Assumed care of patient at this time.
[2025-04-18 19:20] LABS: Free T4 Free Thyroxine Reflex 1.41 ng/dL (0.78-2.19)
--- NOTE | 2025-04-18 19:52 | ECG_ITS ---
Test Date: 2025-04-18 19:58:53 Measurements Intervals [place] Rate: 52 P: 40 VT: 252 QRS: -28 QRSD: 90 T: 55 QT: 470 QTc: 438 Interpretive Statements SINUS RHYTHM WITH SECOND DEGREE AV BLOCK, TYPE I POSSIBLE LEFT ATRIAL ENLARGEMENT VOLTAGE CRITERIA FOR LVH CONSIDER INFERIOR INFARCT, AGE INDETERMINATE CONSIDER ANTERIOR INFARCT, AGE INDETERMINATE BASELINE ARTIFACT- I, II, AVR, AVL, AVF, V1-V6 ABNORMAL ECG Compared to ECG 04/18/2025 15:24:03 HEART RATE HAS IMPROVED Electronically Signed On 04-19-2025 07:29:59 CDT by Margarito Shepherd D.O.
[2025-04-18 20:06] LABS: Total Triiodothyronine (T3) 0.80 NG/ML (0.82-1.58)
--- NOTE | 2025-04-18 20:36 | PC.NURSE ---
2012 Patient was placed on cardiac pads per [facility] for intermittent rhythm change on monitor. Patient also connected to crash cart. Patient updated on plan of care. Call light within reach.
[2025-04-18 21:08] LABS: Troponin I < 0.012 ng/mL (0.000-0.034)
[2025-04-19] VITALS: PULSE 59; RESP 11; O2SAT 95
--- NOTE | 2025-04-19 | PC.NURSE ---
[id number] Called report to Douglas RN at [facility] for nurse to nurse report. Patient going to room 5089 and accepted to for 3rd degree heart block.
[2025-04-19 00:01] VITALS: BP 175/63; PULSE 47; RESP 14; O2SAT 94
[2025-04-19 00:15] VITALS: PULSE 42; RESP 11; O2SAT 97
[2025-04-19 00:30] VITALS: PULSE 54; O2SAT 93
[2025-04-19 00:40] VITALS: BP 175/63; PULSE 52; RESP 17; O2SAT 95
== END 2025-04-19 01:00 | disposition short-term general hospital (02) ==
PROVIDERS: Emergency Provider Physician Assistant
DX: I44.2 Atrioventricular block, complete (principal); R00.1 Bradycardia, unspecified; R94.6 Abnormal results of thyroid function studies; R55 Syncope and collapse; R94.31 Abnormal electrocardiogram [ECG] [EKG]; Z79.899 Other long term (current) drug therapy
CPT/HCPCS: 36415; 70450; 71046; 80053; 83735; 83880; 84439; 84443; 84480; 84484; 85025; 85380; 85610; 85730; 93005; 96365; 99285; J3475